=== PATIENT | female | born 2000 | race Caucasian/White ===

== ENCOUNTER 2023-04-25 10:45 | Emergency (ER) | payer OTHER, SELFPAY ==
[2023-04-25 10:49] VITALS: BP 138/108; PULSE 139; RESP 22; TEMP 36.9; O2SAT 96; BMI 34.8
[2023-04-25 10:54] VITALS: O2SAT 96
--- NOTE | 2023-04-25 11:03 | ED_ITS ---
HPI - General Adult General Chief complaint: Upper Respiratory Infection Stated complaint: FLU SYMPTOMS Time Seen by Provider: 04/25/23 10:54 Mode of arrival: walk-in Limitations: no limitations History of Present Illness HPI narrative: 22-year-old female presents for a four day history of nausea and vomiting. She states she had a fever of a hundred and two degrees at home. No ddiarrhea. She had a slight cough today. She thinks she has a stomach virus. Related Data Previous Rx's Medication Instructions Recorded benzonatate 100 mg capsule 100 mg PO TID PRN cough #20 caps 04/25/23 ondansetron 4 mg disintegrating 4 mg PO Q6H PRN nausea and 04/25/23 tablet vomiting #20 tabs Allergies Allergy/AdvReac Type Severity Reaction Status Date / Time NSAIDS (Non-Steroidal Allergy Unknown Verified 04/25/23 10:49 Anti-Inflamma Review of Systems ROS Narrative A ten point review of systems is negative except as noted above. Exam Narrative Exam Narrative: Nurses note and vital signs reviewed and patient is not hypoxic. General: The patient appears well and in no apparent distress. Patient is resting comfortably on cart. Skin: Warm, dry, no pallor noted. There is no rash noted. Head: Normocephalic, atraumatic Eye: Normal conjunctiva, no drainage Ears, Nose, Mouth, and Throat: oral mucosa is moist. Nares patent. Cardiovascular: Regular Rate and Rhythm Respiratory: Patient is in no distress, no accessory muscle use, lungs are clear to auscultation, no wheezing, rales or rhonchi Back: non-tender GI: no tenderness to palpation, no masses appreciated. No rebound, guarding, or rigidity noted. Musculoskeletal: The patient has no evidence of calf tenderness, no pitting edema, symmetrical pulses noted bilaterally Neurological: A&O, normal speech Psychiatric: Cooperative Constitutional Vital Signs, click to edit/add: Last Vital Signs Temp 98.5 F 04/25/23 10:49 Pulse 106 H 04/25/23 11:42 Resp 20 04/25/23 11:42 BP 143/88 H 04/25/23 11:42 Pulse Ox 98 04/25/23 11:42 O2 Del Method Room Air 04/25/23 10:54 Course Vital Signs Vital signs: Vital Signs Temperature 98.5 F 04/25/23 10:49 Pulse Rate 139 H 12/08/23 10:49 Respiratory Rate 22 04/25/23 10:49 Blood Pressure 138/108 H 04/25/23 10:49 Pulse Oximetry 96 04/25/23 10:49 Oxygen Delivery Method Room Air 04/25/23 10:49 Temperature 98.5 F 04/25/23 10:49 Pulse Rate 106 H 04/25/23 11:42 Respiratory Rate 20 04/25/23 11:42 Blood Pressure 143/88 H 04/25/23 11:42 Pulse Oximetry 98 04/25/23 11:42 Oxygen Delivery Method Room Air 04/25/23 10:54 Medical Decision Making MDM Narrative Medical decision making narrative: Her workup is negative. Repeat abdominal exam shows no tenderness. She complained of some pain in her throat and exam shows no erythema or exudates. Lungs are clear to auscultation and she is able to be discharged. I do not clinically suspect Covid at this point. Treatment diagnosis and follow-up were discussed with the patient. Differential Diagnosis Differential Diagnosis: gastroenteritis, viral illness Lab Data Lab results reviewed: Yes I reviewed the patient's lab results Labs: Lab Results 04/25/23 Range/Units 11:13 WBC 16.6 H (4.0-11.0) 10^3/uL RBC 5.07 (4.20-5.40) 10^6/uL Hgb 14.4 (12.0-16.0) g/dL Hct 45.8 (36.0-48.0) % MCV 90.3 (81.0-99.0) fL MCH 28.4 (26.7-34.0) pg MCHC 31.4 (29.9-35.2) g/dL RDW 13.2 (11.0-15.0) % Plt Count 299 (150-450) 10^3/uL MPV 9.7 (9.5-13.5) fL Neut % (Auto) 83.1 H (43.0-75.0) % Lymph % (Auto) 7.3 L (20.5-60.0) % [place] % (Auto) 8.7 (1.7-12.0) % Eos % (Auto) 0.3 L (0.9-7.0) % Baso % (Auto) 0.3 (0.2-2.0) % Neut # (Auto) 13.8 H (1.4-6.5) 10^3/uL Lymph # (Auto) 1.2 (1.2-3.8) 10^3/uL [place] # (Auto) 1.4 H (0.3-0.8) 10^3/uL Eos # (Auto) 0.1 (0.0-0.7) 10^3/uL Baso # (Auto) 0.1 (0.0-0.1) 10^3/uL Abs Immat Gran (auto) 0.05 H (0.00-0.03) 10^3/uL Imm/Tot Granulo (auto) 0.3 (0.0-0.5) % Sodium 136 (136-145) mmol/L Potassium 3.8 (3.5-5.1) mmol/L Chloride 100 (98-107) mmol/L Carbon Dioxide 22.3 (21.0-32.0) mmol/L Anion Gap 17.5 BUN 9.0 (7.0-18.0) mg/dL Creatinine 0.75 (0.55-1.02) mg/dL Est GFR ( Amer) >60 (>=60) Est GFR (Non-Af Amer) >60 (>=60) BUN/Creatinine Ratio 12.0 Glucose 104 (74-106) mg/dL Calcium 9.1 (8.5-10.1) mg/dL Serum HCG, Qual Negative (NEGATIVE) Discharge Plan Discharge Chief Complaint: Upper Respiratory Infection Clinical Impression: Viral syndrome Patient Disposition: Home, Self-Care Time of Disposition Decision: 13:20 Condition: Good Mode of Transportation: Private Vehicle Prescriptions / Home Meds: New benzonatate 100 mg capsule 100 mg PO TID PRN (Reason: cough) Qty: 20 0RF ondansetron 4 mg tablet,disintegrating 4 mg PO Q6H PRN (Reason: nausea and vomiting) Qty: 20 0RF Instructions: Viral Syndrome (ED) Stand Alone Forms: Portal Instructions Referrals: ZAN MCCLENDON [Primary Care Provider] - 1 week
[2023-04-25 11:21] LABS: Basophils Absolute Auto 0.1 10^3/uL (0.0-0.1); Basophils Percent Auto 0.3 % (0.2-2.0); Eosinophils Absolute Auto 0.1 10^3/uL (0.0-0.7); Eosinophils Percent Auto 0.3 % (0.9-7.0); Hematocrit 45.8 % (36.0-48.0); Hemoglobin 14.4 g/dL (12.0-16.0); Immature Granulocytes Abs Auto 0.05 10^3/uL (0.00-0.03); Immature Granulocytes Pct Auto 0.3 % (0.0-0.5); Lymphocytes Absolute Auto 1.2 10^3/uL (1.2-3.8); Lymphocytes Percent Auto 7.3 % (20.5-60.0); Mean Corpuscular HGB Conc 31.4 g/dL (29.9-35.2); Mean Corpuscular Hemoglobin 28.4 pg (26.7-34.0); Mean Corpuscular Volume 90.3 fL (81.0-99.0); Mean Platelet Volume 9.7 fL (9.5-13.5); Monocytes Absolute Auto 1.4 10^3/uL (0.3-0.8); Monocytes Percent Auto 8.7 % (1.7-12.0); Neutrophils Absolute Auto 13.8 10^3/uL (1.4-6.5); Neutrophils Percent Auto 83.1 % (43.0-75.0); Platelet Count 299 10^3/uL (150-450); Red Blood Count 5.07 10^6/uL (4.20-5.40); Red Cell Distribution Width 13.2 % (11.0-15.0); White Blood Count 16.6 10^3/uL (4.0-11.0)
[2023-04-25 11:26] LABS: Anion Gap 17.5; Calcium 9.1 mg/dL (8.5-10.1); Carbon Dioxide 22.3 mmol/L (21.0-32.0); Chloride 100 mmol/L (98-107); Estimated GFR (African America >60 (>=60); Estimated GFR (Non-African Ame >60 (>=60); Glucose 104 mg/dL (74-106); Potassium 3.8 mmol/L (3.5-5.1); Sodium 136 mmol/L (136-145)
[2023-04-25 11:28] LABS: HCG Qualitative NEGATIVE (NEGATIVE)
[2023-04-25] MEDS: 0.9 % SODIUM CHLORIDE 1,000 ML 1000 ML IV (11:33)
[2023-04-25] MEDS: ONDANSETRON PF 4 MG/2 ML VIAL IV (11:33)
[2023-04-25 11:42] VITALS: BP 143/88; PULSE 106; RESP 20; O2SAT 98
== END 2023-04-25 13:35 | disposition home or self-care (01) ==
PROVIDERS: Emergency Provider Emergency Medicine; PCP Family Medicine
DX: B34.9 Viral infection, unspecified (principal)
CPT/HCPCS: 36415; 80048; 84703; 85025; 96374; 99284

== ENCOUNTER 2023-07-29 20:53 | Outpatient (REF) | payer OTHER, SELFPAY ==
--- OUTSIDE RECORDS SUMMARY | 2023-07-29 21:02 | XMS_ITS | CCD ---
Author Name Unknown Address [address] [facility] [address] [place] [address] Organization [facility] Care Team Providers Care Assistant Reading Teacher Name Role Phone FILIBERTO GREENE Referring Unavailable FLARISARA, FILIBERTO OLMOS Admitting Unavailable NO, PHYSICIAN Primary Care Unavailable KILLIAN CURIEL Attending Unavailable SHARMAINE TAPIA Consulting Unavailable KILLIAN CURIEL Admitting Unavailable KILLIAN CURIEL Consulting Unavailable KILLIAN CURIEL Attending Unavailable KILLIAN CURIEL Admitting Unavailable HAKAN, DR ZULUAGA Admitting Unavailable HAKAN, DR ZULUAGA Attending Unavailable HAKAN, DR ZULUAGA Primary Care Unavailable HAKAN, DR ZULUAGA Consulting Unavailable ZIEBER, DR YOUSIF Horvath Consulting Unavailable JANI SÁNCHEZ Admitting Unavailable JANI SÁNCHEZ Attending Unavailable JANI SÁNCHEZ Consulting Unavailable No, Physician Primary Care Provider Unavailabl e NO, PHYSICIAN Primary Care Unavailable CLAUDIO PRICE Attending Unavailabl e NO, PHYSICIAN Primary Care Unavailable HELDER ALEXANDER Attending Unava ilable COLETTE DE LA PAZ Attending Unavail able NO, PHYSICIAN Primary Care Unavailable NO, PHYSICIAN Primary Care Unavailable SARA MARQUES Attending Unavailab le NO, PHYSICIAN Primary Care Unavailable CLAUDIO PRICE Attending Unavailabl e No, Physician Primary Care Provider Unavailabl Claudio Darby PA-C Unavailable [phone] HELDER ALEXANDER Referring Unava ilable NO, PHYSICIAN Primary Care Unavailable HELDER ALEXANDER Attending Unava ilable NO, PHYSICIAN Primary Care Unavailable CHRISTEN PIERCE Referring Unavailabl e NO, PHYSICIAN Primary Care Unavailable ROGERIO ALEXANDRE Attending Unavail able SIDRA JOSEPH Attending Unavailable NO, PHYSICIAN Primary Care Unavailable SIDRA JOSEPH Attending Unavailable NO, PHYSICIAN Primary Care Unavailable NO, PHYSICIAN Primary Care Unavailable JOSEPH, SIDRA Attending Unavailable Kamala Parker Unavailable AntMoni Unavailable GWENDOLYN UL Attending Unavailable Allergies Allergy Classification Reported Allergen(s) Allergy Type Date of Onset Reaction(s) Facility (6 sources) Non-steroidal anti-inflammatory agent; Translations: [NSAIDS (NON-STEROIDAL ANTI-INFLAMMATORY DRUG)] Propensity to adverse reactions to drug 02-10-2021 Anaphylaxis [facility] (9 sources) Non-steroidal anti-inflammatory agent Propensity to adverse reactions to drug 02-10-2021 Anaphylaxis [facility] Medications Current Medications Medication Drug Class(es) Dates Sig (Normalized) Sig (Original) [id number] 200 actuat albuterol 0.09 mg/actuat metered dose inhaler (4 sources) beta2-Adrenergic Agonist Start: 11-12-2021 End: 05-01-2022 take 2 puff(s) by inhalation every six hours as needed for cough albuterol 90 mcg/actuation inhaler Indications: Cough , Exertional dyspnea Inhale 2 (two) puffs every 6 (six) hours as needed for cough or shortness of breath . 20.1 g 11 11/12/2021 05/01/2022 Discontinued Start: 03-07-2016 take 2 puff(s) by in halation every four hours as needed Albuterol Sulfate HFA 108 (90 Base) MCG/ACT 2 puffs as needed Inhalation every 4 hrs Dec, Active ARIPiprazole 2 mg oral table t (6 sources) Atypical Antipsychotic ARIPipraz ole 2 MG Oral for 90 Days Active End: 05-01-2022 apply 1 tablet topically once daily ARIPiprazole (ABILIFY) 10 MG disintegrating tablet Dissolve 10 mg on top of tongue daily . 0 05/01/2022 Discontinued benzonatate 200 mg oral capsule (3 sources) Non-narcotic Antitussive Start: 01-01-2023 take 1 capsule by mouth every eight hours Benzonatate 200 MG 1 capsule Orally Three times a day for 10 Dec, Active Start: 03-07-2016 take 1 capsule by mo [facility] three times daily as needed Tessalon Perles 100 MG 1 capsule as needed Orally Three times a day Feb, Not-Taking fluticasone propionate 0.05 mg/actuat metered dose nasal spray (1 source) Corticosteroid Start: 01-01-2023 take 1 spray(s) nasal route once daily Flonase Allergy Relief 50 MCG/ACT 1 spray in each nostril Nasally Once a day for 30 day(s) Dec, Active metFORMIN hydrochloride 500 mg oral tablet (2 sources) Biguanide metFORMIN HCl 50 0 MG Oral for 90 Days Active methylPREDNISolone 4 mg oral tablet (3 sources) Corticosteroid Start: 04-18-2016 methylPREDNISolone 4 MG as directed Orally Dec, Active propranolol hydrochloride 10 mg oral tablet (10 sources) beta-Adrenergic Nenita take 1 tablet by mouth twice daily propranoloL (INDERAL) 10 MG tablet Take 1 (one) tablet (10 mg total) by mouth 2 (two) times a day . 0 Active Completed/Discontinued Medications Medication Drug Class(es) Dates Sig (Normalized) Sig (Original) amoxicillin 875 mg oral tablet (2 sources) Penicillin-class Antibacterial Start: 03-07-2016 take 1 tablet by mouth every twelve hours Amoxicillin 875 MG 1 tablet Orally every 12 hrs for 10 day(s) Feb, Not-Taking cefTRIAXone (2 sources) Cephalosporin Antibacterial Start: 05-11-2014 Rocephin 500 mg Apr, 1 grm cetirizine hydrochloride 10 mg oral tablet (2 sources) Histamine-1 Receptor Antagonist Start: 07-05-2021 End: 07-05-2022 take 1 tablet by mouth once daily cetirizine (ZYRTEC) 10 MG tablet Indications: Fungal infection Take 1 (one) tablet (10 mg total) by mouth daily . 30 tablet 11 07/05/2021 05/01/2022 Discontinued diphenhydrAMINE hydrochloride 25 mg oral capsule (3 sources) Histamine-1 Receptor Antagonist Start: 06-26-2021 End: 06-26-2022 take 1 capsule by mouth every four hours as needed diphenhydrAMINE (BENADRYL) 25 mg capsule Indications: Pityriasis rosea Take 1 (one) capsule (25 mg total) by mouth every 4 (four) hours as needed for itching . 24 capsule 2 06/26/2021 05/01/2022 Discontinued doxycycline monohydrate 100 mg oral capsule (2 sources) Tetracycline-class Drug Start: 04-18-2016 take 1 capsule by mouth every twelve hours Doxycycline Monohydrate 100 MG 1 capsule Orally every 12 hrs for 14 days Apr, Not-Taking ketoconazole 20 mg/ml topical cream (2 sources) Azole Antifungal Start: 07-05-2021 End: 05-01-2022 ketoconazole (NIZORAL) 2 % cream Indications: Fungal infection Apply to affected area daily for 2 weeks . 30 g 0 07/05/2021 05/01/2022 Discontinued levonorgestrel 0.616628 mg/hr intrauterine system (11 sources) Progestin, Progestin-containi ng Intrauterine Device Start: 05-22-2022 End: 05-22-2022 levonorgestreL (MIRENA) 20 mcg/24 hours (8 yrs) 52 mg IUD 1 each Start: 05-22-2022 End: 05-22-2022 levonorgestreL (MIRENA) 20 m cg/24 hours (8 yrs) 52 mg IUD 1 each Start: 05-22-2022 End: 05-22-2022 levonorgestreL (MIRENA) 20 m cg/24 hours (8 yrs) 52 mg IUD 1 each Start: 05-22-2022 End: 05-22-2022 levonorgestreL (MIRENA) 20 m cg/24 hours (8 yrs) 52 mg IUD 1 each Start: 05-22-2022 End: 05-22-2022 levonorgestreL (MIRENA) 20 m cg/24 hours (8 yrs) 52 mg IUD 1 each Start: 05-22-2022 End: 05-22-2022 levonorgestreL (MIRENA) 20 m cg/24 hours (8 yrs) 52 mg IUD 1 each Start: 05-22-2022 End: 05-22-2022 levonorgestreL (MIRENA) 20 m cg/24 hours (8 yrs) 52 mg IUD 1 each Start: 05-22-2022 End: 05-22-2022 levonorgestreL (MIRENA) 20 m cg/24 hours (8 yrs) 52 mg IUD 1 each Start: 05-22-2022 End: 05-22-2022 levonorgestreL (MIRENA) 20 m cg/24 hours (8 yrs) 52 mg IUD 1 each Start: 05-22-2022 End: 05-22-2022 levonorgestreL (MIRENA) 20 m cg/24 hours (8 yrs) 52 mg IUD 1 each Start: 05-22-2022 End: 05-23-2022 levonorgestreL (MIRENA) 20 m cg/24 hours (8 yrs) 52 mg IUD 1 each Loratadine / Pseudoephedrine (2 sources) alpha-Adrenergic Agonist Start: 04-18-2016 take 5-120 mg by mouth every twelve hours as needed Loratadine-Pseudoephedrine ER 5-120 MG 1 tablet as needed Orally every 12 hrs for 14 days Apr, Not-Taking ondansetron 4 mg disintegrating oral tablet (1 source) Serotonin-3 Receptor Antagonist Start: 11-12-2021 End: 05-01-2022 apply 1 tablet topically every eight hours as needed for nausea ondansetron (ZOFRAN-ODT) 4 MG disintegrating tablet Indications: Nausea and vomiting, unspecified vomiting type Dissolve 1 (one) tablet (4 mg total) on top of tongue every 8 (eight) hours as needed for nausea . 9 tablet 0 11/12/2021 05/01/2022 Discontinued phentermine hydrochloride 37.5 mg oral tablet (4 sources) Sympathomimetic Amine Anorectic End: 05-01-2022 take 1 tablet by mouth once daily in the morning phentermine (ADIPEX-P) 37.5 mg tablet Take 37.5 mg by mouth every morning . 0 05/01/2022 Discontinued predniSONE 20 mg oral tablet (2 sources) Start: 03-07-2016 predniSONE 20 MG 2 tablets twice daily for 2 days then 1 tablet twice daily for 2 days then 1 tablet daily for 3 days Orally take with food for 7 days Feb, Not-Taking sertraline 50 mg oral tablet (7 sources) Serotonin Reuptake Inhibitor Start: 04-25-2017 End: 05-01-2022 take 1 tablet by mouth once daily sertraline (ZOLOFT) 50 MG tablet Take 50 mg by mouth daily . 0 04/25/2017 05/01/2022 Discontinued take 1 tablet by salome th every twenty-four hours Zoloft 25 MG 1 tablet Orally Once a day Not-Taking Problems Active Problems Problem Classification Problem Date Documented Date Episodic/Chronic Abdominal pain (6 sources) Right upper quadrant pain; Translations: [Pain in female pelvis] Onset: 12-14-2020 Episodic Acute bronchitis (1 source) Acute bronchitis, unspecified Episodic Contraceptive and procreative management (10 sources) Patient encounter status; Translations: [Encounter for insertion of intrauterine contraceptive device] Onset: 05-22-2022 Episodic Genitourinary symptoms and ill-defined conditions (2 sources) Unspecified abnormal findings in urine; Translations: [Unspecified abnormal findings in urine] Onset: 04-03-2022 Episodic Immunizations and screening for infectious disease (9 sources) Vaccination needed; Translations: [Encounter for immunization] Onset: 05-22-2022 Episodic Mycoses (1 source) Mycosis; Translations: [Unspecified mycosis] Episodic Nausea and vomiting (4 sources) Nausea; Translations: [NAUSEA] Onset: 12-05-2020 Episodic Other connective tissue disease (1 source) Achilles tendinitis; Translations: [Achilles tendinitis, unspecified leg] Episodic Other endocrine disorders (1 source) Polycystic ovary syndrome; Translations: [Polycystic ovarian syndrome] Chronic Other endocrine disorders (2 sources) Polycystic ovarian syndrome; Translations: [Polycystic ovarian syndrome] Onset: 05-01-2022 Chronic Other female genital disorders (1 source) Abnormal uterine bleeding; Translations: [Abnormal uterine and vaginal bleeding, unspecified] Chronic Other female genital disorders (4 sources) Abnormal uterine and vaginal bleeding, unspecified; Translations: [Abnormal uterine and vaginal bleeding, unspecified] Onset: 04-03-2022 Chronic Other female genital disorders (2 sources) Personal history of other diseases of the female genital tract; Translations: [Personal history of other diseases of the female genital tract] Onset: 04-03-2022 Episodic Other inflammatory condition of skin (1 source) Pityriasis rosea; Translations: [Pityriasis rosea] Chronic Other screening for suspected conditions (not mental disorders or infectious disease) (12 sources) Encounter for screening for malignant neoplasm of cervix; Translations: [ test negative] Onset: 12-19-2020 Episodic Other skin disorders (1 source) Eruption; Translations: [Rash and other nonspecific skin eruption] Episodic Other upper respiratory infections (2 sources) Acute pharyngitis, unspecified; Translations: [Acute upper respiratory infection, unspecified] Episodic Screening and history of mental health and substance abuse codes (2 sources) Personal history of other mental and behavioral disorders; Translations: [Personal history of other mental and behavioral disorders] Onset: 04-03-2022 Episodic Unclassified (1 source) Thrombocytosis, unspecified; Translations: [Thrombocytosis, unspecified] Onset: 04-03-2022 Unclassified (1 source) Cough, unspecified; Translations: [Cough, unspecified] Onset: 11-12-2021 Past or Other Problems Problem Classification Problem Date Documented Da te Episodic/Chronic Unclassified (1 source) Thrombocytosis, unspecified; Translations: [Thrombocytosis, unspecified] Onset: 04-03-2022 Unclassified (1 source) Cough, unspecified; Translations: [Cough, unspecified] Onset: 11-12-2021 Unclassified (1 source) Contact with and (suspected) exposure to covid-19 Z20.822 Results Test Name Value Interpretation Reference Range Facility COVID/FLU RT-PCRon SARS-CoV-2 (COVID-19) RNA MODESTA+probe Ql (Unsp spec) Negative [facility] Other COVID/FLU RT-PCR Negative [facility] [employer] Other COVID Quick Testingon 2022 Result Negative [facility] Other Quick Strepon 10-31-2022 S. pyogenes Org specific cx Ql (Throat) Negative [facility] Other Quick Strep [facility] Other Chlamydia/Gonorrhoeae Amplif ied RNAOrdered By: Tiffany Abbasi on 05-23-2022 C. trachomatis rRNA MODESTA+probe Ql (Vag fld) Negative Negative [facility] N. gonorrhoeae rRNA MODESTA+probe Ql (Vag fld) Negative Negative [facility] No Panel InformationOrdered By: Tiffany Abbasi on 05-23-2022 Interpretation and review of laboratory results Normal [facility] Trichomonas vaginalis Amplif ied RNAon 05-23-2022 T. vaginalis rRNA MODESTA+probe Ql (Vag fld) Negative Negative [facility] HCG ( test) Ql (U)O rdered By: Erin Cottrell on 05-22-2022 Internal Control Pass [facility] Interpretation and review of laboratory results Normal [facility] Laboratory - Chemistry and C hemistry - challengeOrdered By: Erin Cottrell on 05-22-2022 HCG ( test) Ql (U) Negative Negative [facility] PELVIC TRANSABDOMINAL AND TRANSVAGINAL WITH COLOR FLOWon 04-03-2022 US PELVIC TRANSABDOMINAL AND TRANSVAGINAL WITH COLOR FLOW EXAMINATION: US PELVIC TRANSABDOMINAL AND TRANSVAGINAL WITH COLOR FLOW HISTORY: ORDERING SYSTEM PROVIDED HISTORY: Abnormal heavy vaginal bleeding, TECHNOLOGIST PROVIDED HISTORY: Illness/Other Reason for exam: Abnormal heavy vaginal bleeding Cancer History: no Surgery, RadiationHistory: no Encounter Type: Initial Additional signs and symptoms: u ORDERING SYSTEM PROVIDED DIAGNOSIS CODES: COMPARISON: None. TECHNIQUE: Transabdominal and endovaginal ultrasound of the pelvis with grayscale and Doppler interrogation. FINDINGS: The uterus is retroflexed, measuring 7.34 cm in length by 3.69 cm AP by 3.90 cm transverse. The endometrial stripe thickness measured 8.82 mm. Both ovaries are normal in size and echogenicity with each containing small follicular cysts. The right ovary measured 3.90 x 2.58 x 1.33 cm and has normal intrinsic arterial and venous waveforms for which the arterial resistive index is 0.62. The left ovary measured 1.69 x 2.07 x 1.96 cm and also has normal intrinsic arterial and venous waveforms for which the arterial resistive index is 0.59. No free fluid is seen within the pelvis. IMPRESSION: Normal study. No acute findings. DPR/cdr Workstation ID: [id number] Dictated by: KILLIAN MENA on FriApr 03, 2022 2:29:20 PM EST Transcribed by: HALIMA SANDOVAL on FriApr 03, 2022 2:45:11 PM EST Finalized by: KILLIAN MENA on FriApr 03, 2022 2:48:51 PM EST Normal [facility] Comment on above: Order Comment: Injur y/Trauma or Illness?:Illness/Other How long have you had these symptoms (acute/chronic)?:Unknown Reason for exam?:Abnormal heavy vaginal bleeding History of cancer?:no Surgeries, chemotherapy, or radiation?:no Type of Exam?:Initial Additional signs and symptoms?:u XR CHEST AP/PA AND LATon XR CHEST AP/PA AND LAT EXAMINATION: PA AND LATERAL CHEST, 11/12/2021 10:56 am. HISTORY: ORDERING SYSTEM PROVIDED HISTORY: Patient diagnosed with COVID a week ago. Exertional shortness of breath, productive cough, wheezing., TECHNOLOGIST PROVIDED HISTORY: Illness/Other Reason for exam: cough sob Cancer History: no Surgery, RadiationHistory: no Encounter Type: Initial Additional signs and symptoms: tested + for covid last week ORDERING SYSTEM PROVIDED DIAGNOSIS CODES: R05.9 Cough COMPARISON: None FINDINGS: The heart is normal in size. The pulmonary vascularity is normal. No infiltrate, effusion, or pneumothorax is present. IMPRESSION: No acute pulmonary disease. Workstation ID: [id number] Dictated by: YOUSIF OROZCO on FriNov 12, 2021 11:20:08 AM EDT Transcribed by: YOUSIF OROZCO on FriNov 12, 2021 11:20:08 AM EDT Finalized by: YOUSIF OROZCO on FriNov 12, 2021 11:20:08 AM EDT Normal [facility] Comment on above: Order Comment: Injur y/Trauma or Illness?:Illness/Other How long have you had these symptoms (acute/chronic)?:Acute Reason for exam?:cough sob History of cancer?:no Surgeries, chemotherapy, or radiation?:no Type of Exam?:Initial Additional signs and symptoms?:tested + for covid last week COVID-19, MOLECULARon 2020 INTERNAL CONTROL (DHALIWAL ID) Pass Normal [facility] SARS-CoV-2 (COVID-19) Ab IA Ql Not detected Normal Not Detected [facility] PAP ACOG PANEL 3: 21 to 29on 12-22-2020 . . Normal [facility] Comment on above: Result Comment: Perf ormed at: WB Performed By: #### [id number] #### [facility] [address] [place], [place] [address] Danae Gwendolyn Age Gdln ACOG Testing - Normal [facility] Comment on above: Performed By: #### [id number] #### [facility] [address] [place], [place] [address] Danae Gwendolyn Chlamydia, Nuc. Acid Amp Negative Normal Negative [facility] Comment on above: Result Comment: Perf ormed at: =G Performed By: #### [id number] #### [facility] [address] [place] [address] Danae Gwendolyn DIAGNOSIS: Comment Normal [facility] Comment on above: Result Comment: NEGA TIVE FOR INTRAEPITHELIAL LESION OR MALIGNANCY. CELLULAR CHANGES ASSOCIATED WITH INFLAMMATION ARE PRESENT. THIS SPECIMEN WAS RESCREENED PART OF OUR DIRECTOR PRESALES PROGRAM. Performed at: WB Performed By: #### [id number] #### [facility] [address] [place] [address] Danae Junioren Gonococcus, Nuc. Acid Amp Negative Normal Negative [facility] Comment on above: Result Comment: Perf ormed at: =G Performed By: #### [id number] #### [facility] [address] [place] [address] Danae Junioren Methodology: Comment Normal [facility] Comment on above: Result Comment: This liquid based ThinPrep(R) pap test was screened with the use of an image guided system. Performed at: WB Performed By: #### [id number] #### [facility] [address] [place] [address] Danae Gwendolyn Note: Comment Normal [facility] Comment on above: Result Comment: The Pap smear is a screening test designed to aid in the detection of premalignant and malignant conditions of the uterine cervix. It is not a diagnostic procedure and should not be used as the sole means of detecting cervical cancer. Both false-positive and false-negative reports do occur. . Performed at: WB Performed By: #### [id number] #### [facility] [address] [place] [address] Danae Snow Performed by: Comment Normal [facility] Comment on above: Result Comment: Santos Vuong, Hand Stemmer (ASCP) Performed at: WB Performed By: #### [id number] #### [facility] [address] [place] [address] Danae Snow QC reviewed by: Comment Normal [facility] Comment on above: Result Comment: Elijah Ann, Supervisory Hand Stemmer (ASCP) Performed at: WB Performed By: #### [id number] #### [facility] [address] [place] [address] Danae Snow Reflex Criteria: Comment Normal [facility] Comment on above: Result Comment: The HPV DNA reflex criteria were not met with this specimen result therefore, no HPV testing was performed. . Performed at: WB Performed By: #### [id number] #### [facility] [address] [place] [address] Danae Snow Specimen adequacy: Comment Normal [facility] Comment on above: Result Comment: Sati sfactory for evaluation. Endocervical and/or squamous metaplastic cells (endocervical component) are present. Performed at: WB Performed By: #### [id number] #### [facility] [address] [place] [address] Danae Snow US SINGLE QUAD RT UPPERon US SINGLE QUAD RT UPPER EXAMINATION: US SINGLE QUAD RT UPPER HISTORY: Nausea , right upper quadrant tenderness COMPARISON: No relevant comparison available. TECHNIQUE: Transabdominal evaluation of the right upper quadrant. FINDINGS: LIVER: Normal size and echotexture. Color Doppler demonstrates patent hepatic veins. PORTAL VEIN: Duplex Doppler demonstrates normal hepatopetal flow pattern with flow velocity averaging 31 cm/s. GALLBLADDER: No visible gallstones, wall thickening, or pericholecystic free fluid. Negative sonographic Soraes's sign. BILIARY: No abnormal dilation or stones. Common bile duct diameter is within normal limits. PANCREASE: Not well seen due to overlying bowel gas. KIDNEY: No hydronephrosis. No visible mass or stones. Size: 9.2 x 4.9 x 4.2 cm IMPRESSION: 1. No abnormal or suspicious findings to account for the patient's symptoms. 2. Very limited evaluation of the pancreas due to overlying bowel gas. Electronically authenticated by: YOUSIF ARIAS Date: 2020-12-05 13:58 Normal [facility] CBCon 11-01-2020 Basophils (Bld) [#/Vol] 0.04 10*3/uL Normal <=0.2 [facility] Comment on above: Performed By: #### D DIMR, TNIH, CBC, COMPH #### [facility] [address] [place] [address] Basophils/100 WBC (Bld) 0.4 % Normal [facility] Comment on above: Performed By: #### D DIMR, TNIH, CBC, COMPH #### [facility] [address] [place] [address] Eosinophils (Bld) [#/Vol] 0.24 10*3/uL Normal <=0.60 [facility] Comment on above: Performed By: #### D DIMR, TNIH, CBC, COMPH #### [facility] [address] [place] [address] Eosinophils/100 WBC (Bld) 2.5 % Normal [facility] Comment on above: Performed By: #### D DIMR, TNIH, CBC, COMPH #### [facility] [address] [place] [address] Hematocrit (Bld) [Volume fraction] 40.3 % Normal 35.0-45.0 [facility] Comment on above: Performed By: #### D DIMR, TNIH, CBC, COMPH #### [facility] [address] [place] [address] Hemoglobin (Bld) [Mass/Vol] 13.1 g/dL Normal 11.8-15.5 [facility] Comment on above: Performed By: #### D DIMR, TNIH, CBC, COMPH #### [facility] [address] [place] [address] Immature granulocytes (Bld) [#/Vol] 0.02 10*3/uL Normal 0.00-0.10 [facility] Comment on above: Performed By: #### D DIMR, TNIH, CBC, COMPH #### [facility] [address] [place] [address] Immature granulocytes/100 WBC (Bld) 0.2 % Normal [facility] Comment on above: Performed By: #### D DIMR, TNIH, CBC, COMPH #### [facility] [address] [place] [address] Lymphocytes (Bld) [#/Vol] 2.71 10*3/uL Normal 1.00-4.50 [facility] Comment on above: Performed By: #### D DIMR, TNIH, CBC, COMPH #### [facility] [address] [place] [address] Lymphocytes/100 WBC (Bld) 28.1 % Normal [facility] Comment on above: Performed By: #### D DIMR, TNIH, CBC, COMPH #### [facility] [address] [place] [address] MCH (RBC) [Entitic mass] 27.9 pg Normal 27.0-34.0 [facility] Comment on above: Performed By: #### Torers DIMR, TNIH, CBC, COMPH #### [facility] [address] [place] [address] MCHC (RBC) [Mass/Vol] 32.5 g/dL Normal 31.0-36.0 [facility] Comment on above: Performed By: #### D DIMR, TNIH, CBC, COMPH #### [facility] [address] [place] [address] MCV (RBC) [Entitic vol] 85.9 fL Normal 81.0-100.0 [facility] Comment on above: Performed By: #### Torres DIMR, TNIH, CBC, COMPH #### [facility] [address] [place] [address] Monocytes (Bld) [#/Vol] 0.66 10*3/uL Normal 0.10-0.80 [facility] Comment on above: Performed By: #### D DIMR, TNIH, CBC, COMPH #### [facility] [address] [place] [address] MONOS 6.8 % Normal [facility] Comment on above: Performed By: #### D DIMR, TNIH, CBC, COMPH #### [facility] [address] [place] [address] Neutrophils (Bld) [#/Vol] 5.97 10*3/uL Normal 1.50-7.50 [facility] Comment on above: Performed By: #### D DIMR, TNIH, CBC, COMPH #### [facility] [address] [place] [address] Platelet mean volume (Bld) [Entitic vol] 9.8 fL Normal 8.5-13.0 [facility] Comment on above: Performed By: #### D DIMR, TNIH, CBC, COMPH #### [facility] [address] [place] [address]116 Platelets (Bld) [#/Vol] 362 10*3/uL Normal 150-400 [facility] Comment on above: Performed By: #### D DIMR, TNIH, CBC, COMPH #### [facility] [address] [place] [address] RBC (Bld) [#/Vol] 4.69 10*6/uL Normal 3.80-5.[address] [facility] Comment on above: Performed By: #### D DIMR, TNIH, CBC, COMPH #### [facility] [address] [place] [address] RDW (STD DEVIATION) 43.9 fL Normal 38.0-48.[address] [facility] Comment on above: Performed By: #### D DIMR, TNIH, CBC, COMPH #### [facility] [address] [place] [address] 30283 SEGS 62.0 % Normal [facility] Comment on above: Performed By: #### D DIMR, TNIH, CBC, COMPH #### [facility] [address] [place] [address] WBC (Bld) [#/Vol] 9.64 10*3/uL Normal 4.50-11.[address] [facility] Comment on above: Performed By: #### D DIMR, TNIH, CBC, COMPH #### [facility] [address] [place] [address] COMPREHENSIVE METABOLIC PANE Felipe 11-01-2020 Albumin [Mass/Vol] 3.5 g/dL Normal 3.5-5.0 [facility] Comment on above: Performed By: #### D DIMR, TNIH, CBC, COMPH #### [facility] [address] [place] [address]67 ALP [Catalytic activity/Vol] 76 U/L Normal 34-115 [facility] Comment on above: Performed By: #### D DIMR, TNIH, CBC, COMPH #### [facility] [address] [place] [address]14 ALT [Catalytic activity/Vol] 25 U/L Normal 11-66 [facility] Comment on above: Performed By: #### D DIMR, TNIH, CBC, COMPH #### [facility] [address] [place] [address]14[address] AST [Catalytic activity/Vol] 29 U/L Normal 5-40 [facility] Comment on above: Performed By: #### Torres DIMR, TNIH, CBC, COMPH #### [facility] [address] [place] [address] Bilirubin [Mass/Vol] 0.4 mg/dL Normal 0.2-1.3 [facility] Comment on above: Result Comment: Prom acta (Eltrombopag) use may falsely elevate total bilirubin results. Performed By: #### D DIMR, TNIH, CBC, COMPH #### [facility] [address] [place] [address]53 Calcium [Mass/Vol] 9.1 mg/dL Normal 8.3-10.0 [facility] Comment on above: Performed By: #### D DIMR, TNIH, CBC, COMPH #### [facility] [address] [place] [address] Chloride [Moles/Vol] 102 mmol/L Normal 99-109 [facility] Comment on above: Performed By: #### D DIMR, TNIH, CBC, COMPH #### [facility] [address] [place] [address] CO2 [Moles/Vol] 23 mmol/L Normal 22-32 [facility] Comment on above: Performed By: #### D DIMR, TNIH, CBC, COMPH #### [facility] [address] [place] [address] Creatinine [Mass/Vol] 0.81 mg/dL Normal 0.55-1.02 [facility] Comment on above: Performed By: #### D DIMR, TNIH, CBC, COMPH #### [facility] [address] [place] [address] GFR >60.00 Normal >=60 [facility] Comment on above: Result Comment: Unit s of measure= mL/min/1.73m2 This eGFR is calculated using the MDRD study equation which has not been validated for use with the elderly (>70yrs), women, patients with serious comorbid conditions, or persons with extremes of body size, muscle mass, or nutritional status. Use of this equation with these patient groups may lead to errors in eGFR. Performed By: #### D DIMR, TNIH, CBC, COMPH #### [facility] [address] [place] [address] GFR NON- >60.00 Normal >=60 [facility] Comment on above: Result Comment: Unit s of measure= mL/min/1.73m2 This eGFR is calculated using the MDRD study equation which has not been validated for use with the elderly (>70yrs), women, patients with serious comorbid conditions, or persons with extremes of body size, muscle mass, or nutritional status. Use of this equation with these patient groups may lead to errors in eGFR. Performed By: #### D DIMR, TNIH, CBC, COMPH #### [facility] [address] [place] [address] Glucose [Mass/Vol] 88 mg/dL Normal 65-110 [facility] Comment on above: Performed By: #### D DIMR, TNIH, CBC, COMPH #### [facility] [address] [place] [address] Potassium [Moles/Vol] 4.3 mmol/L Normal 3.6-5.0 [facility] Comment on above: Performed By: #### D DIMR, TNIH, CBC, COMPH #### [facility] [address] [place] [address] Protein [Mass/Vol] 7.3 g/dL Normal 6.3-8.2 [facility] Comment on above: Performed By: #### D DIMR, TNIH, CBC, COMPH #### [facility] [address] [place] [address] Sodium [Moles/Vol] 140 mmol/L Normal 139-147 [facility] Comment on above: Performed By: #### D DIMR, TNIH, CBC, COMPH #### [facility] [address] [place] [address] Urea nitrogen [Mass/Vol] 10 mg/dL Normal 7-25 [facility] Comment on above: Performed By: #### D DIMR, TNIH, CBC, COMPH #### [facility] [address] [place] [address] D-DIMERon 11-01-2020 D-DIMER 214.00 ng/mL FEU Normal <=682 [facility] Comment on above: Result Comment: This assay is approved for use in conjunction with a non high clinical pretest probability (PTP) assessment model to exclude pulmonary embolism (PE) disease and as an aid in the diagnosis of Venous Thromboembolism (VTE) disease (deep vein thrombosis (DVT) or PE). The cutoff to exclude PE is <450ng/mL FEU. Performed By: #### D DIMR, TNIH, CBC, COMPH #### [facility] [address] [place] [address] TROPONIN, HIGH SENSITIVITYon 11-01-2020 TROPONIN, HIGH SENSITIVITY <0.03 Normal 0.00-0.06 [facility] Comment on above: Result Comment: RISK STRATIFICATION: Low risk 0.00-0.06 Intermediate risk 0.07-<0.1 High risk 0.1-0.6 Suggestive of NE >.6 Performed By: #### D DIMR, TNIH, CBC, COMPH #### [facility] [address] [place] [address] Xray, Chest 2 viewson 2020 Xray, Chest 2 views TWO VIEWS OF THE CHEST CLINICAL HISTORY: Chest pain, unspecified COMPARISON: None. FINDINGS: The cardiac silhouette and mediastinal contours are within normal limits. The lungs are clear. There is no pleural effusion or pneumothorax. IMPRESSION: No acute findings. Normal [facility] Comment on above: Order Comment: Chest pain, unspecified COVID-19, MOLECULARon 2020 SARS-COV-2 (DIABlippexRIN) Not Detected Normal Not Detected [facility] Comment on above: Order Comment: : Ayleen l Swab COVID/Flu Lab Tests (OP in UTM/Dry) Result Comment: This test was performed under the FDA's Emergency Use Authorization (EUA). Testing was performed using the Simplexa SARS-CoV-2 RT-PCR assay (Algorithmics) on the [employer] MDX platform. This test has not been approved for use in asymptomatic patients and its performance in this patient population has not been evaluated. Negative results do not rule out the presence of SARS-CoV-2/COVID-19. Fact sheets for this EUA can be found at the following links: For Healthcare Providers: https://www.fda.gov/media/796149/download For Patients: https://www.fda.gov/media/715272/download Performed By: #### L [id number] #### [facility] [address] [place], [place] [address] Zen Kwon M.D. [id number] Vital Signs Date Time Vital Sign Value Performing Clinician Facility 01-01-2023 11:10-0400 Body height 160.02 cm Moni Cain Other [facility] Other 01-01-2023 11:10-0400 Body mass index (BMI) [Ratio] 33.65 kg/m2 Moni Cain Other [facility] Other 01-01-2023 11:10-0400 Body temperature 98.2 [degF] Moni Cain Other [facility] Other 01-01-2023 11:10-0400 Body weight 86.18 kg Moni Cain Other [facility] Other 01-01-2023 11:10-0400 Diastolic blood pressure 68 mm[Hg] Moni Cain Other [facility] Other 01-01-2023 11:10-0400 Respiratory rate 18 /min Moni Cain Other [facility] Other 01-01-2023 11:10-0400 SaO2% (BldA) [Mass fraction] 96 % Moni Cain Other [facility] Other 01-01-2023 11:10-0400 Systolic blood pressure 125 mm[Hg] Moni Cain Other [facility] Other 10-31-2022 18:10-0400 Body height 160.02 cm Kamala Parker Other [facility] Other 10-31-2022 18:10-0400 Body mass index (BMI) [Ratio] 34.5 kg/m2 Kamala Parker Other [facility] Other 10-31-2022 18:10-0400 Body temperature 98.1 [degF] Kamala Eelna Other [facility] Other 10-31-2022 18:10-0400 Body weight 88.36 kg Kamala Parker Other [facility] Other 10-31-2022 18:10-0400 Diastolic blood pressure 57 mm[Hg] Kamala Parker Other [facility] Other 10-31-2022 18:10-0400 Respiratory rate 18 /min Kamala Parker Other [facility] Other 10-31-2022 18:10-0400 SaO2% (BldA) [Mass fraction] 99 % Kamalarhona Parker Other [facility] Other 10-31-2022 18:10-0400 Systolic blood pressure 101 mm[Hg] Kamala Parker Other [facility] Other 05-22-2022 14:42-0500 Body height 157.5 cm Sidra Joseph PA-C Work Phone: [facility] 05-22-2022 14:42-0500 Body mass index (BMI) [Ratio] 36.69 kg/m2 Sidra Joseph PA-C Work Phone: [facility] 05-22-2022 14:42-0500 Body weight 90.99 kg Sidra Joseph PA-C Work Phone: [facility] 05-22-2022 14:42-0500 Diastolic blood pressure 61 mm[Hg] Sidra Joseph PA-C Work Phone: [facility] 05-22-2022 14:42-0500 Heart rate 74 /min Sidra Joseph PA-C Work Phone: [facility] 05-22-2022 14:42-0500 Systolic blood pressure 115 mm[Hg] Sidra Joseph PA-C Work Phone: [facility] 05-01-2022 13:16-0500 Body height 157.5 cm Sidra Joseph PA-C Work Phone: [facility] 05-01-2022 13:16-0500 Body mass index (BMI) [Ratio] 36.03 kg/m2 Sidra Joseph PA-C Work Phone: [facility] 05-01-2022 13:16-0500 Body weight 89.36 kg Sidra Joseph PA-C Work Phone: [facility] 05-01-2022 13:16-0500 Diastolic blood pressure 84 mm[Hg] Sidra Joseph PA-C Work Phone: [facility] 05-01-2022 13:16-0500 Heart rate 73 /min Sidra Joseph PA-C Work Phone: [facility] 05-01-2022 13:16-0500 Systolic blood pressure 114 mm[Hg] Sidra Joseph PA-C Work Phone: [facility] 07-05-2021 14:01-0500 Body height 157.5 cm Claudio Price PA-C Work Phone: [facility] Comment on above: per pt. 07-05-2021 14:01-0500 Body mass index (BMI) [Ratio] 34.75 kg/m2 Claudio Price PA-C Work Phone: [facility] 07-05-2021 14:01-0500 Body temperature 98.49 [degF] Claudio Price PA-C Work Phone: [facility] 07-05-2021 14:01-0500 Body weight 86.18 kg Claudio Price PA-C Work Phone: [facility] Comment on above: per pt. 07-05-2021 14:01-0500 Diastolic blood pressure 72 mm[Hg] Claudio Price PA-C Work Phone: [facility] 07-05-2021 14:01-0500 Heart rate 68 /min Claudio Price PA-C Work Phone: [facility] 07-05-2021 14:01-0500 SaO2% (BldA) [Mass fraction] 97 % Claudio Price PA-C Work Phone: [facility] 07-05-2021 14:01-0500 Systolic blood pressure 110 mm[Hg] Claudio Price PA-C Work Phone: [facility] 06-26-2021 11:02-0500 Body height 157.5 cm Sara Bernens PA-C Work Phone: [facility] 06-26-2021 11:02-0500 Body mass index (BMI) [Ratio] 34.75 kg/m2 Sara Bernens PA-C Work Phone: [facility] 06-26-2021 11:02-0500 Body temperature 98.49 [degF] Sara Bernens PA-C Work Phone: [facility] 06-26-2021 11:02-0500 Body weight 86.18 kg Sara Bernens PA-C Work Phone: [facility] 06-26-2021 11:02-0500 Diastolic blood pressure 76 mm[Hg] Sara Bernens PA-C Work Phone: [facility] 06-26-2021 11:02-0500 Heart rate 82 /min Sara Bernens PA-C Work Phone: [facility] 06-26-2021 11:02-0500 Respiratory rate 16 /min Sara Bernens PA-C Work Phone: [facility] 06-26-2021 11:02-0500 Systolic blood pressure 122 mm[Hg] Sara Marques PA-C Work Phone: [facility] Encounters Encounter Date Encounter Type Care Provider Facility Start: 03-25-2023 End: 03-26-2023 ambulatory GWENDOLYN LU Not Available Start: 01-01-2023 End: 01-01-2023 ambulatory Moni Cain Other [facility] Other Start: 01-01-2023 Office outpatient vi sit 15 minutes Moni Cain [facility] Start: 10-31-2022 End: 10-31-2022 ambulatory Kamala Parker Other [facility] Other Start: 10-31-2022 Office outpatient ne w 20 minutes Kamala Parker [facility] Start: 06-19-2022 End: 06-19-2022 ambulatory PHYSICIAN NO [facility] Start: 05-22-2022 End: 05-22-2022 ambulatory SIDRARodger RODASJOSEPH [facility] Start: 05-22-2022 End: 05-22-2022 Patient encounter procedure Sidra Joseph PA-C Work Phone: [facility] Comment on above: Encounter for IUD in sertion (Primary Dx); Negative test; Routine screening for STI (sexually transmitted infection) Start: 05-01-2022 End: 05-01-2022 ambulatory SIDRA JOSEPH [facility] Start: 05-01-2022 End: 05-01-2022 Office outpatient new 20 minutes Sidra Joseph PA-C Work Phone: [facility] Comment on above: Pelvic pain in femal e (Primary Dx); Abnormal uterine bleeding (AUB); PCOS (polycystic ovarian syndrome) Start: 04-03-2022 End: 04-07-2022 Emergency department patient visit PHYSICIAN [facility] Start: 04-03-2022 End: 04-03-2022 Emergency department patient visit PHYSICIAN [facility] Start: 11-12-2021 End: 11-13-2021 ambulatory PHYSICIAN NO [facility] Start: 07-24-2021 ambulatory PHYSICIAN NO [facility] Start: 07-05-2021 End: 07-05-2021 ambulatory PHYSICIAN NO [facility] Start: 07-05-2021 End: 07-05-2021 Office outpatient visit 10 minutes Claudio Price PA-C Work Phone: [facility] Comment on above: Rash (Primary Dx); Fungal infection Start: 06-26-2021 End: 06-26-2021 ambulatory PHYSICIAN NO [facility] Start: 06-26-2021 End: 06-26-2021 Office outpatient visit 15 minutes Sara Marques PA-C Work Phone: [facility] Comment on above: Pityriasis rosea (Pr imary Dx); Achilles tendinitis, unspecified laterality Start: 02-23-2021 End: 02-23-2021 Clinical Support Shanell Rosas RN [facility] Comment on above: Need for vaccination (Primary Dx) Start: 02-10-2021 End: 02-10-2021 ambulatory COLETTE DE LA PAZ [facility] Start: 12-19-2020 End: 12-19-2020 ambulatory JANI SÁNCHEZ Facility:[facility] Start: 12-05-2020 End: 12-06-[address] ZAN MCCLENDON Facility:[facility] Start: 11-01-2020 ambulatory KILLIAN CURIEL Facilit y:[facility] Start: 11-01-2020 End: 11-02-2020 ambulatory KILLIAN CURIEL Facility:[facility] Start: 08-27-2020 End: 08-27-2020 [facility] Procedures Date Procedure Procedure Detail Performing Clinician Start: 05-22-2022 Iadna chlamydia trachomatis amplified probe tq Sidra Joseph PA-C Work Phone: Start: 05-22-2022 Urine test visual color cmprsn meths Sidra Joseph PA-C Work Phone: Plan of Treatment Date Care Activity Detail Author Start: 05-22-2023 Screening for Chlamy ash trachomatis Chlamydia Screening [facility] Start: 06-19-2022 End: 06-19-2022 Patient encounter procedure 06/19/2022 Office Visit Obstetrics and Gynecology Sidra Joseph PA-C [address] [place] [address] [place] [address] [facility] Start: 05-22-2022 End: 05-22-2022 Patient encounter procedure 05/22/2022 Procedure visit Obstetrics and Gynecology Sidra Joseph PA-C [address] [place] [address] [place] [address] [facility] Start: 01-17-2022 Influenza vaccination Sequenti al Influenza Vaccine (#1) [facility] Start: 11-04-2021 Tetanus vaccination Tetanus: Every 1 0yrs [facility] Start: 02-24-2021 Depression screening using PHQ-9 (Patient Health Questionnaire 9) score Depression Screening (PHQ-2/9) [facility] Comment on above: Postponed from 07/16 (Patient Refused) Start: 01-23-2021 COVID-19 Vaccine (3 - Booster for Moderna series) COVID-19 Vaccine (3 - Booster for Moderna series) [facility] Start: 10-18-2020 COVID-19 Vaccine (3 - Booster for Moderna series) COVID-19 Vaccine (3 - Booster for Moderna series) [facility] Start: 2017 Hepatitis C screening Hepatitis C Sc reening [facility] Start: 2014 HIV screening HIV Screening [facility] Start: 2011 Depression screening using PHQ-9 (Patient Health Questionnaire 9) score Depression Screening (PHQ-2/9) [facility] Start: 2002 History and physical examination, annual for health maintenance Wellness Visit [facility] Start: 1999 Screening for Chlamy ash trachomatis Chlamydia Screening [facility] Start: 1999 Screening for malign ant neoplasm of cervix Pap Smear [facility] Chlamydia trachomati s rRNA assay [facility] Work Phone: Comment on above: Ordered: 05/22/2022 Neisseria gonorrhoea e nucleic acid detection [facility] Comment on above: Ordered: 05/22/2022 Trichomonas vaginali s Amplified RNA [facility] Comment on above: Ordered: 05/22/2022 Immunizations Immunization Date Immunization Notes Care Provider Ana wilsonradha 02-23-2021 influenza, injectabl e, quadrivalent, preservative free Shanell Ralph VELASQUEZ [facility] 02-23-2021 flu vacc [id number] mos up,PF, (FLUZONE QUAD) injection Shanell Rosas RN [facility] Work Phone: 03-06-2020 influenza, injectabl e, quadrivalent, preservative free Shanell Rosas RN [facility] 11-04-2017 meningococcal B vacc ine, recombinant, OMV, adjuvanted Shanell Rosas RN [facility] 12-26-2016 meningococcal oligosaccharide (groups A, C, Y and W-135) diphtheria toxoid conjugate vaccine (MCV4O) Shanell Rosas RN [facility] 05-14-2012 hepatitis A vaccine, pediatric/adolescent dosage, 2 dose schedule Shanell Rosas RN [facility] 05-14-2012 HPV, unspecified formulation Shanell Rosas RN [facility] 01-03-2012 human papilloma viru s vaccine, quadrivalent Shanell Rosas RN [facility] 01-03-2012 varicella virus vaccine Shanell Sierra callejas RN [facility] 11-05-2011 hepatitis A vaccine, pediatric/adolescent dosage, 2 dose schedule Shanell Rosas RN [facility] 11-05-2011 human papilloma viru s vaccine, quadrivalent Shanell Rosas RN [facility] 11-05-2011 tetanus toxoid, redu cliff diphtheria toxoid, and acellular pertussis vaccine, adsorbed Shanell Rosas RN [facility] 08-02-2004 diphtheria, tetanus toxoids and acellular pertussis vaccine Shanell Rosas RN [facility] 08-02-2004 measles, mumps and rubella virus vaccine Shanell Rosas RN [facility] 08-02-2004 poliovirus vaccine, inactivated Shanell Rosas RN [facility] 01-15-2001 pneumococcal conjuga te vaccine, 7 valent Shanell Rosas RN [facility] 12-16-2000 diphtheria, tetanus toxoids and acellular pertussis vaccine, unspecified formulation Shanell Rosas RN [facility] 11-13-2000 diphtheria, tetanus toxoids and acellular pertussis vaccine, unspecified formulation Shanell Rosas RN [facility] 11-13-2000 pneumococcal conjuga te vaccine, 7 valent Shanell Rosas RN [facility] 08-07-2000 haemophilus influenz ae type b vaccine, PRP-OMP conjugate Shanell Rosas RN [facility] 08-07-2000 measles, mumps and rubella virus vaccine Shanell Rosas RN [facility] 08-07-2000 poliovirus vaccine, inactivated Shanell Rosas RN [facility] 08-07-2000 varicella virus vaccine Shanell callejas RN [facility] 07-04-2000 pneumococcal conjuga te vaccine, 7 valent Shanell Rosas RN [facility] 06-26-2000 influenza virus vacc ine, whole virus Shanell Rosas RN [facility] 05-15-2000 diphtheria, tetanus toxoids and acellular pertussis vaccine, unspecified formulation Shanell Rosas RN [facility] 05-15-2000 haemophilus influenz ae type b vaccine, PRP-OMP conjugate Shanell Rosas RN [facility] 05-15-2000 influenza virus vacc ine, whole virus Shanell Rosas RN [facility] 02-21-2000 diphtheria, tetanus toxoids and acellular pertussis vaccine, unspecified formulation Shanell Rosas RN [facility] 02-21-2000 haemophilus influenz ae type b conjugate and Hepatitis B vaccine Shanell Rosas RN [facility] 02-21-2000 poliovirus vaccine, inactivated Shanell Rosas RN [facility] 1999 diphtheria, tetanus toxoids and acellular pertussis vaccine, unspecified formulation Shanell Rosas RN [facility] 1999 haemophilus influenz ae type b conjugate and Hepatitis B vaccine Shanell Rosas RN [facility] 1999 poliovirus vaccine, inactivated Shanell Rosas RN [facility] 1999 hepatitis B vaccine, pediatric or pediatric/adolescent dosage Shanell Rsoas RN [facility] Payers Date Payer Category Payer Unknown [employer] PPO [id number] 2016-Present [phone] [address] [place] [address] [id number] 2016 Unknown [employer] PPO [id number] 2016-Present [phone] [address] [place] [address] [id number] 1999 Unknown [id number] 1999 Unknown [id number] [id number] 1999 Unknown [id number] [id number] 1999 Unknown [id number] [id number] 1999 Unknown [id number] [id number] 1999 Unknown [id number] 2.16.840.1.683898.3.579.2.903 1999 Unknown [id number] 2.16.840.1.430091.3.579.2.903 1999 Unknown [id number] 2.16.840.1.495281.3.579.2.903 1999 Unknown [id number] 2.16.840.1.566784.3.579.2.903 1999 Unknown [id number] 2.16.840.1.516707.3.579.2.903 1999 Unknown [id number] 2.16.840.1.770860.3.579.2.903 1999 Unknown [id number] 2.16.840.1.294971.3.579.2.903 1999 Unknown [id number] 2.16.840.1.908208.3.579.2.903 1999 Unknown [id number] 2.16.840.1.178579.3.579.2.903 1999 Unknown [id number] 1959 Unknown [id number] Social History Date Type Detail Facility Start: 02-10-2021 End: 05-01-2022 Tobacco smoking status NHIS Never smoked tobacco [facility] Start: 02-10-2021 End: 05-01-2022 Tobacco use and exposure Smokeless tobacco non-user [facility] Start: 1999 Sex Assigned At Not on file [facility] Start: 04-21-2022 End: 05-18-2022 Exposure to SARS-CoV-2 (event) Not sure [facility] Start: 07-05-2021 End: 05-22-2022 Alcohol intake Current drinker of alcohol (finding) [facility] Start: 07-05-2021 History SDOH Alcohol Comment weekends [facility] Sex Assigned At Sex Assigned At Bir th [facility] Other Clinical Notes 06-26-2021 to 01-01-2023 Note Date & Type Note Facility 01-01-2023 Evaluation note Encounter Date Diagnosis Assessment Notes Dec, Contact with and (suspected) exposure to covid-19 (ICD-10 - Z20.822) covid and flu neg, see above. Dec, Acute bronchitis, unspecified organism (ICD-10 - J20.9) Discussed viral nature of bronchitis and how abx will not work for tx. Steroid as directed with food. Flonase daily as directed. Pt is to use inhaler as prescribed prn for cough and wheeze. Supportive care as directed. Push fluids and rest. Pt is to take otc antipyretic prn for fever and aches. Pt is to take rx cough suppressant prn for cough. Pt is to be re-evaluated after tx if sx worsen or don't improve by pcp or UC. Discussed sx of resp distress - wheeze, sob, difficulty breathing and swallowing, chest tightness, or chest pain. Pt is to f/u immediately in ER if these sx present. Pt is to call the office with any questions or concerns regarding dx and tx. Pt understood and agreed to tx plan. [facility] Other 06-15-2023 Evaluation note* Encounter Date Diagnosis Assessment Notes Treatment Notes Treatment Clinical Notes Oct, Sore throat (ICD-10 - J02.9) Oct, Viral URI with cough (ICD-10 - J06.9) Discussed with patient exam and history is consistent with viral upper respiratory infection. Discussed viral nature of illness and typical duration of 7 to 14 days. Advised antibiotics unfortunately do not treat viral illnesses. May use symptomatic treatment such as Mucinex DM, Claritin-D. May use Tylenol for any pain/fever. Follow-up with PCP if not improving over the next 7 days, sooner if significantly worsening symptoms. Patient is concerned about possible contagious nature. Rapid strep is negative. Rapid COVID-negative. Discussed other viruses are still contagious in nature but no quarantine guidelines. Avoid sharing cups or drinks, good handwashing especially if touching mouth or nose. Patient verbalized understanding of treatment plan. [facility] Other 01-04-2023 History of Present illness Narrative* Sidra Joseph PA-C - 05/22/2022 3:09 PM EST [facility] Dis[facility] Recovery Manager Progress Note Last Encounter in Department: 05/01/2022 Next Encounter in Department: Visit date not found Subjective Chief Complaint Patient presents with Procedure Pt here for mirena insertion. -Cyrus Balbuena Chelsie Shannon is a who presents for IUD insertion. HPI Review of Systems The following portions of the patient's history were reviewed and updated as appropriate: allergies, current medications, past family history, past medical history, past social history, past surgicalhistory, and problem list. Objective BP 115/61 (BP Location: Left arm, Patient Position: Sitting, BP Cuff Size: X- large Adult) Pulse 74 Ht 5' 2 Wt 91 kg (200 lb 9.6 oz) LMP (LMP Unknown) Comment: Pt has irregular cycles BMI 36.69 kg/m Body mass index is 36.69 kg/m . No visits with results within 2 Week(s) from this visit. Latest known visit with results is: Admission on 04/03/2022, Discharged on 04/03/2022 Component Date Value Ref Range Status Sodium 04/03/2022 140 135 - 145 mmol/L Final Potassium 04/03/2022 4.2 3.5 - 5.1 mmol/L Final Chloride 04/03/2022 108 98 - 108 mmol/L Final Bicarbonate 04/03/2022 27 21 - 32 mmol/L Final Anion Gap 04/03/2022 9 (L) 10 - 20 mmol/L Final Glucose 04/03/2022 84 65 - 99 mg/dL Final BUN 04/03/2022 9 8 - 25 mg/dL Final Creatinine 04/03/2022 0.66 0.40 - 1.10 mg/dL Final eGFR 04/03/2022 127 >=60 mL/min/1.73 m2 Final Estimated GFR was calculated using the 2020 CKD-EPI creatinine equation. BUN/Creatinine Ratio 04/03/2022 13.6 10.0 - 20.0 Final Calcium 04/03/2022 9.2 8.4 - 10.2 mg/dL Final Total Protein 04/03/2022 7.6 6.0 - 8.0 g/dL Final Albumin 04/03/2022 3.3 3.2 - 5.2 g/dL Final Total Bilirubin 04/03/2022 0.3 0.0 - 1.3 mg/dL Final Bilirubin, Direct 04/03/2022 0.1 0.0 - 0.4 mg/dL Final Alkaline Phosphatase 04/03/2022 68 40 - 140 U/L Final AST 04/03/2022 11 0 - 45 U/L Final ALT 04/03/2022 15 14 - 65 U/L Final Lactic Acid 04/03/2022 0.9 0.6 - 2.0 mmol/L Final Color, Urine 04/03/2022 Red (A) Colorless, Yellow Final Clarity, Urine 04/03/2022 Cloudy (A) Clear Final Specific [place] 04/03/2022 1.021 1.005 - 1.025 Final pH, Urine 04/03/2022 6.0 5.0 - 7.0 Final Protein, Urine 04/03/2022 100 (A) Negative mg/dL Final Glucose, Urine 04/03/2022 50 (A) Negative mg/dL Final Ketones, Urine 04/03/2022 Trace (A) Negative mg/dL Final Bilirubin, Urine 04/03/2022 Negative Negative Final Urobilinogen, Urine 04/03/2022 <2.0 <2.0 mg/dL Final Blood, Urine 04/03/2022 Moderate (A) Negative Final Nitrite, Urine 04/03/2022 Negative Negative Final Leukocyte Esterase, Urine 04/03/2022 Negative Negative Final WBCs, Urine 04/03/2022 2 0 - 5 /hpf Final RBCs, Urine 04/03/2022 50 (H) 0 - 3 /hpf Final Bacteria, Urine 04/03/2022 Few (A) None Seen /hpf Final Squamous Epithelial 04/03/2022 3 0 - 4 /hpf Final Beta-hCG Qual 04/03/2022 Negative Negative Final WBC 04/03/2022 10.14 4.50 - 11.00 K/mcL Final RBC 04/03/2022 4.40 4.00 - 5.20 M/mcL Final Hemoglobin 04/03/2022 12.4 12.0 - 16.0 g/dL Final Hematocrit 04/03/2022 38.7 36.0 - 46.0 % Final MCV 04/03/2022 88.0 80.0 - 100.0 fL Final MCH 04/03/2022 28.2 26.0 - 34.0 pg Final MCHC 04/03/2022 32.0 31.0 - 37.0 g/dL Final Platelets 04/03/2022 413 (H) 150 - 400 K/mcL Final RDW - CV 04/03/2022 13.2 11.6 - 14.8 % Final MPV 04/03/2022 9.8 9.4 - 12.4 fL Final Neutrophils 04/03/2022 61.3 % Final Lymphocytes 04/03/2022 29.5 % Final Monocytes 04/03/2022 6.7 % Final Eosinophils 04/03/2022 1.5 % Final Basophils 04/03/2022 0.6 % Final IG Percent 04/03/2022 0.40 % Final The IG parameter is the percentage of metamyelocytes, myelocytes and promyelocytes. An immature granulocyte count (IG) of 1% or more suggests the possibility of infection, an IG count of 3% is very likely related to an infection. Neutrophils Abs 04/03/2022 6.22 1.70 - 7.00 K/mcL Final Lymphocytes Abs 04/03/2022 2.99 0.90 - 4.00 K/mcL Final Monocytes Abs 04/03/2022 0.68 0.30 - 0.90 K/mcL Final Eosinophils Abs 04/03/2022 0.15 0.00 - 0.50 K/mcL Final Basophils Abs 04/03/2022 0.06 0.00 - 0.30 K/mcL Final IG Absolute 04/03/2022 0.04 0.00 - 0.30 K/mcL Final Nucleated RBC 04/03/2022 0.0 % Final Nucleated RBC Abs 04/03/2022 0.00 0.00 - 0.00 K/mcL Final Extra Tube 04/03/2022 Hold for add-ons. Final Auto resulted. Extra Tube 04/03/2022 Hold for add-ons. Final Auto resulted. Culture 04/03/2022 > 10,000 CFU/mL mixture of normal urogenital microbiota Final No results found for: INTERPGYN, OTHFINDGYN, HPVRESULTS, GENCAT OBGyn Exam Procedures IUD Insertion Indication and Consent: Audra Shannon is a 21 y.o. who desires an IUD. She has been counseled regarding the risks, benefitsand alternatives to the IUD and she has the maturity to understand and consent to the procedure. She especially understands that her menstrual periods are expected to change while using the IUD. She has no contraindications to the insertion. Her questions have been answered. She has fully reviewed the FDA-approved consent brochure, has signed the consent form, and wishes to proceed with the insertion today. Procedure in Detail: BP 115/61 (BP Location: Left arm, Patient Position: Sitting, BP Cuff Size: X- large Adult) Pulse 74 Ht 5' 2 Wt 91 kg (200 lb 9.6 oz) LMP (LMP Unknown) Comment: Pt has irregular cycles BMI 36.69 kg/m Urine test was negative. In the dorsal lithotomy position, a speculum was placed in the vagina and the cervix was well-visualized. Gc/ct testing was performed at this time. The cervix was cleansed with Betadine. A tenaculum was placed on the anterior lip of the cervix. The uterus was gently sounded to 9cm. The IUD opened and loaded, and was placed using standard insertion technique. The strings were cut to 2cm. The tenaculum was removed from the cervix and hemostasis was achieved. All instruments were removed from the vagina. The patient tolerated the procedure well. IUD Information: Mirena IUD Condition: Stable Complications: None Assessment/Plan: Audra is a 21 y.o. . She presented for IUD insertion. No problems updated. Audra was seen today for procedure. Diagnoses and all orders for this visit: Encounter for IUD insertion - levonorgestreL (MIRENA) 20 mcg/24 hours (8 yrs) 52 mg IUD 1 each Negative test - POC , urine Routine screening for STI (sexually transmitted infection) - Chlamydia/GC/Trichomonas Amplified RNA The patient was advised to call for any fever, prolonged / heavy bleeding, or severe pain or bleeding. She was advised to use NSAID as needed for mild to moderate pain. Sidra Joseph PA-C documented in this [id number] History of Present illness Narrative* Sidra Joseph PA-C - 05/01/2022 2:00 PM EST [facility] Disaster Recovery Manager Progress Note Last Encounter in Department: Visit date not found Next Encounter in Department: Visit date not found Subjective PATIENT HISTORY Audra Shannon is a 21 y.o. Chief Complaint Patient presents with Consult New Patient. Was looking for a new [employer]. Symptoms got worse and went to ED then referred to us for care. At the time of ED visit had been on OCP for one month. Reports went to ED for heavy vaginal bleeding, one tampon and super pad in 30 minutes. Passed several clots. Stopped taking OCP and has stopped bleeding. IMMANUEL Acosta Data Unavailable Social History Substance and Sexual Activity Sexual Activity Not Currently Partners: Male control/protection: None Single Menstrual Status Period Pattern: (!) Irregular Pap History No results found for: INTERPGYN, OTHFINDGYN, HPVRESULTS, GENCAT HPI Audra presents to establish care, discuss BC, and follow up after ER visit for AUB. She has a history of PCOS. She has tried OCPs, patches, nuvaring, Nexplanon. Most recently, she was on OCPs. She had heavy bleeding, bleeding through a pad and tampon in 30 minutes and passing large clots, and passed out at work due to pelvic pain. She wants a control that gives her predictable bleeding and does not cause her to gain weight. We discussed IUDs vs Depo. She chose Mirena. We discussed PCOS and its impact on fertility, insulin resistance, and hair growth. She also reports vaginal odor being treated by her previous OBGYN. Recommended boric acid vaginal suppositories. The following portions of the patient's history were reviewed and updated as appropriate: allergies, current medications, past family history, past medical history, past social history, past surgicalhistory, and problem list. Review of Systems Objective OBJECTIVE FINDINGS Vitals: 05/01/22 1316 BP: 114/84 Pulse: 73 Wt Readings from Last 3 Encounters: 05/01/22 89.4 kg (197 lb) 04/03/22 90.3 kg (199 lb) 07/05/21 86.2 kg (190 lb) Body mass index is 36.03 kg/m . OBGyn Exam Neuro: She has no focal neurologic deficits. Normal gait and mobility. Psych: Mood and affect appear normal and appropriate. Maturity appropriate to patient age. HEENT: Normocephalic, EOMI. Musculoskeletal: No gross osteopathic abnormalities noted on general physical exam. Skin: Skin exam normal on brief evaluation of exposed skin with no obvious rashes or lesions. Lab Review: Admission on 04/03/2022, Discharged on 04/03/2022 Component Date Value Ref Range Status Sodium 04/03/2022 140 135 - 145 mmol/L Final Potassium 04/03/2022 4.2 3.5 - 5.1 mmol/L Final Chloride 04/03/2022 108 98 - 108 mmol/L Final Bicarbonate 04/03/2022 27 21 - 32 mmol/L Final Anion Gap 04/03/2022 9 (L) 10 - 20 mmol/L Final Glucose 04/03/2022 84 65 - 99 mg/dL Final BUN 04/03/2022 9 8 - 25 mg/dL Final Creatinine 04/03/2022 0.66 0.40 - 1.10 mg/dL Final eGFR 04/03/2022 127 >=60 mL/min/1.73 m2 Final BUN/Creatinine Ratio 04/03/2022 13.6 10.0 - 20.0 Final Calcium 04/03/2022 9.2 8.4 - 10.2 mg/dL Final Total Protein 04/03/2022 7.6 6.0 - 8.0 g/dL Final Albumin 04/03/2022 3.3 3.2 - 5.2 g/dL Final Total Bilirubin 04/03/2022 0.3 0.0 - 1.3 mg/dL Final Bilirubin, Direct 04/03/2022 0.1 0.0 - 0.4 mg/dL Final Alkaline Phosphatase 04/03/2022 68 40 - 140 U/L Final AST 04/03/2022 11 0 - 45 U/L Final ALT 04/03/2022 15 14 - 65 U/L Final Lactic Acid 04/03/2022 0.9 0.6 - 2.0 mmol/L Final Color, Urine 04/03/2022 Red (A) Colorless, Yellow Final Clarity, Urine 04/03/2022 Cloudy (A) Clear Final Specific [place] 04/03/2022 1.021 1.005 - 1.025 Final pH, Urine 04/03/2022 6.0 5.0 - 7.0 Final Protein, Urine 04/03/2022 100 (A) Negative mg/dL Final Glucose, Urine 04/03/2022 50 (A) Negative mg/dL Final Ketones, Urine 04/03/2022 Trace (A) Negative mg/dL Final Bilirubin, Urine 04/03/2022 Negative Negative Final Urobilinogen, Urine 04/03/2022 <2.0 <2.0 mg/dL Final Blood, Urine 04/03/2022 Moderate (A) Negative Final Nitrite, Urine 04/03/2022 Negative Negative Final Leukocyte Esterase, Urine 04/03/2022 Negative Negative Final WBCs, Urine 04/03/2022 2 0 - 5 /hpf Final RBCs, Urine 04/03/2022 50 (H) 0 - 3 /hpf Final Bacteria, Urine 04/03/2022 Few (A) None Seen /hpf Final Squamous Epithelial 04/03/2022 3 0 - 4 /hpf Final Beta-hCG Qual 04/03/2022 Negative Negative Final WBC 04/03/2022 10.14 4.50 - 11.00 K/mcL Final RBC 04/03/2022 4.40 4.00 - 5.20 M/mcL Final Hemoglobin 04/03/2022 12.4 12.0 - 16.0 g/dL Final Hematocrit 04/03/2022 38.7 36.0 - 46.0 % Final MCV 04/03/2022 88.0 80.0 - 100.0 fL Final MCH 04/03/2022 28.2 26.0 - 34.0 pg Final MCHC 04/03/2022 32.0 31.0 - 37.0 g/dL Final Platelets 04/03/2022 413 (H) 150 - 400 K/mcL Final RDW - CV 04/03/2022 13.2 11.6 - 14.8 % Final MPV 04/03/2022 9.8 9.4 - 12.4 fL Final Neutrophils 04/03/2022 61.3 % Final Lymphocytes 04/03/2022 29.5 % Final Monocytes 04/03/2022 6.7 % Final Eosinophils 04/03/2022 1.5 % Final Basophils 04/03/2022 0.6 % Final IG Percent 04/03/2022 0.40 % Final Neutrophils Abs 04/03/2022 6.22 1.70 - 7.00 K/mcL Final Lymphocytes Abs 04/03/2022 2.99 0.90 - 4.00 K/mcL Final Monocytes Abs 04/03/2022 0.68 0.30 - 0.90 K/mcL Final Eosinophils Abs 04/03/2022 0.15 0.00 - 0.50 K/mcL Final Basophils Abs 04/03/2022 0.06 0.00 - 0.30 K/mcL Final IG Absolute 04/03/2022 0.04 0.00 - 0.30 K/mcL Final Nucleated RBC 04/03/2022 0.0 % Final Nucleated RBC Abs 04/03/2022 0.00 0.00 - 0.00 K/mcL Final Extra Tube 04/03/2022 Hold for add-ons. Final Extra Tube 04/03/2022 Hold for add-ons. Final Culture 04/03/2022 > 10,000 CFU/mL mixture of normal urogenital microbiota Final Procedures Assessment ASSESSMENT/PLAN: Audra Shannon is a 21 y.o. . She presents for a follow up visit. Assessment: No problems updated. Audra was seen today for consult. Diagnoses and all orders for this visit: Pelvic pain in female Abnormal uterine bleeding (AUB) PCOS (polycystic ovarian syndrome) Return in about 2 weeks (around 05/15/2022) for IUD insertion. Sidra Joseph PA-C documented in this [id number] Instructions* Patient Instructions* Claudio Price PA-C - 07/05/2021 3:50 PM EST Images from the original note were not included. Tinea Versicolor: Care Instructions Your Care Instructions Tinea versicolor is a skin infection caused by a yeast (fungus). It causes many small spots, usually on the chest and back. The spotted skin can be flaky or scaly. The spots do not jeffries in the sun, sothey are airline manager than the skin around them. Some spots may be darker than the skin around them. The yeast that causes tinea versicolor normally lives on your skin. But it becomes a problem only when warmth and humidity allow the yeast to grow rapidly and increase in number. Some people are morelikely to get tinea versicolor. It does not spread from person to person. Tinea versicolor usually gets better as you age. You can treat tinea versicolor with cream or ointment that kills the yeast. You may need pills to kill the fungus if the spots cover a lot of your body. Although treatment kills the yeast quickly, your skin may not return to normal for months after treatment. You can get this condition again after treatment. Follow-up care is a nichols part of your treatment and safety. Be sure to make and go to all appointments, and call your doctor if you are having problems. It's also a good idea to know your test resultsand keep a list of the medicines you take. How can you care for yourself at home? Follow the directions for use of creams, shampoos, or solutions. You will probably need to use themfor 1 to 2 weeks. If your skin gets irritated, stop using the product, and call your doctor. To prevent tinea versicolor, use a cream, shampoo, or solution one time a month. Your doctor may prescribe pills to prevent the spots from returning. Dry off well after bathing. Keep your skin clean and dry. Always wear sunscreen on exposed skin. Make sure to use a broad-spectrum sunscreen that has a sun protection factor (SPF) of 30 or higher. Use it every day, even when it is cloudy. If you keep getting tinea versicolor, wash your clothes in very hot water to kill the yeast. When should you call for help? Call your doctor now or seek immediate medical care if: You have signs of infection such as: ? Pain, warmth, or swelling in your skin. ? Red streaks near a wound in your skin. ? Pus coming from a wound in your skin. ? A fever. Watch closely for changes in your health, and be sure to contact your doctor if: Your skin condition does not improve in 2 weeks. You do not get better as expected. Where can you learn more? Log into your personal health record on https://[employer] and enter K490 in the Education box to learn more about Tinea Versicolor: Care Instructions. Current as of: July 19, 2020 Content Version: 13.1 [employer]. Care instructions adapted under license by your healthcare professional. If you have questions about a medical condition or this instruction, always ask your healthcare professional. [employer] disclaims any warranty or liability for your use of this information. documented in this [id number] History of Present illness Narrative* Claudio Price PA-C - 07/05/2021 2:12 PM EST Images from the original note were not included. PATIENT NAME: Audra Shannon [facility] [address] [place] [id number] : 2000 DATE OF VISIT: 07/05/2021 #: [id number] PROVIDER: Claudio Price PA-C Chief Complaint Patient presents with Rash Was seen on 06/26/20, for a rash on her chest for 1 month. States the rash itches very bad. States that she is getting a rash in different areas of her body. She is concerned it is a contagious rash. She believes that she was misdiagnosed on 06/26/20. SUBJECTIVE 20 y.o. female presents Rash (Was seen on 06/26/20, for a rash on her chest for 1 month. States the rash itches very bad. States that she is getting a rash in different areas of her body. She is concerned it is a contagious rash. She believes that she was misdiagnosed on 06/26/20.) The Benadryl made her feel very tired. Patient denies recent URI. Rash This is a new problem. The current episode started 1 to 4 weeks ago. The problem has been waxing and waning since onset. The affected locations include the chest. The rash is characterized by itchiness. She was exposed to nothing. Pertinent negatives include no anorexia, congestion, cough, diarrhea, eye pain, facial edema, fatigue, fever, joint pain, nail changes, rhinorrhea, shortness of breath,sore throat or vomiting. Past treatments include antihistamine and topical steroids. The treatment provided significant relief. MEDICAL ISSUES Past Medical History: Diagnosis Date Anxiety Depression There is no problem list on file for this patient. SOCIAL HISTORY Social History Socioeconomic History Marital status: Single Tobacco Use Smoking status: Never Smoker Smokeless tobacco: Never Used Vaping Use Vaping Use: Never used Substance and Sexual Activity Alcohol use: Yes Comment: weekends Drug use: Never FAMILY HISTORY Family History Problem Relation Age of Onset No Known Problems Mother No Known Problems Father REVIEW OF SYSTEMS Review of Systems Constitutional: Negative for fatigue and fever. HENT: Negative for congestion, rhinorrhea and sore throat. Eyes: Negative for pain. Respiratory: Negative for cough and shortness of breath. Gastrointestinal: Negative for anorexia, diarrhea and vomiting. Musculoskeletal: Negative for joint pain. Skin: Positive for rash. Negative for nail changes. MEDICATIONS PRIOR TO VISIT Current Outpatient Medications on File Prior to Visit Medication Sig Dispense Refill ARIPiprazole (ABILIFY) 10 MG disintegrating tablet Dissolve 10 mg on top of tongue daily . propranoloL (INDERAL) 10 MG tablet Take 10 mg by mouth 2 (two) times a day . sertraline (ZOLOFT) 50 MG tablet Take 50 mg by mouth daily . diphenhydrAMINE (BENADRYL) 25 mg capsule Take 1 (one) capsule (25 mg total) by mouth every 4 (four)hours as needed for itching . (Patient not taking: Reported on 07/05/2021 .) 24 capsule 2 phentermine (ADIPEX-P) 37.5 mg tablet Take 37.5 mg by mouth every morning . No current facility-administered medications on file prior to visit. ALLERGIES/INTOLERANCES Allergies Allergen Reactions Nsaids (Non-Steroidal Anti-Inflammatory Drug) Anaphylaxis OBJECTIVE BP 110/72 (BP Location: Right arm, Patient Position: Sitting, BP Cuff Size: X- large Adult) Pulse 68 Temp 98.5 F (36.9 C) (Infrared) Ht 5' 2 Comment: per pt. Wt 86.2 kg (190 lb) Comment: per pt. LMP 06/28/2021 (Within Days) SpO2 97% BMI 34.75 kg/m Physical Exam Vitals and nursing note reviewed. Constitutional: General: She is not in acute distress. Appearance: She is well-developed and well-nourished. HENT: Head: Normocephalic and atraumatic. Eyes: General: Right eye: No discharge. Left eye: No discharge. Pulmonary: Effort: Pulmonary effort is normal. No respiratory distress. Chest: Comments: Roughly 1.5cm erythematous circumferential lesion with central clearing Musculoskeletal: General: Normal range of motion. Cervical back: Normal range of motion. Neurological: Mental Status: She is alert. Psychiatric: Mood and Affect: Mood and affect normal. Behavior: Behavior normal. Thought Content: Thought content normal. Judgment: Judgment normal. PROCEDURE Procedures Results No results found for this or any previous visit (from the past 168 hour(s)). ASSESSMENT/PLAN (expressed as patient instructions): 1. Rash Ambulatory referral to Dermatology 2. Fungal infection cetirizine (ZYRTEC) 10 MG tablet ketoconazole (NIZORAL) 2 % cream Return if symptoms worsen or fail to improve. MDM Section Zyrtec AM; Benadryl PM PRN. Ketoconazole cream. Discontinue steroid at this time in case fungal component. Head and Shoulder dandruff shampoo to wash body. Derm referral placed. Discussed return to care protocol and red flag signs; patient verbally understood and agreed to treatment plan. ORDERS PLACED THIS VISIT Orders Placed This Encounter Procedures Ambulatory referral to Dermatology MEDICATION LIST AT END OF VISIT Current Outpatient Medications Medication Sig Dispense Refill ARIPiprazole (ABILIFY) 10 MG disintegrating tablet Dissolve 10 mg on top of tongue daily . propranoloL (INDERAL) 10 MG tablet Take 10 mg by mouth 2 (two) times a day . sertraline (ZOLOFT) 50 MG tablet Take 50 mg by mouth daily . cetirizine (ZYRTEC) 10 MG tablet Take 1 (one) tablet (10 mg total) by mouth daily . 30 tablet 11 diphenhydrAMINE (BENADRYL) 25 mg capsule Take 1 (one) capsule (25 mg total) by mouth every 4 (four)hours as needed for itching . (Patient not taking: Reported on 07/05/2021 .) 24 capsule 2 ketoconazole (NIZORAL) 2 % cream Apply to affected area daily for 2 weeks . 30 g 0 phentermine (ADIPEX-P) 37.5 mg tablet Take 37.5 mg by mouth every morning . No current facility-administered medications for this visit. documented in this [id number] History of Present illness Narrative* Sara Marques PA-C - 06/26/2021 12:06 PM EST PATIENT NAME: Audra Shannon [facility] [address] [place] [address] A [facility] [id number] : 2000 DATE OF VISIT: 06/26/2021 #: [id number] PROVIDER: Sara Marques PA-C Chief Complaint Patient presents with Rash Chest, itchy x 10 d Foot Injury Left heel pain, worsens with activity SUBJECTIVE 20 y.o. female presents Rash (Chest, itchy x 10 d ) and Foot Injury (Left heel pain, worsens with activity ) HPI Noticed itchy rash about 7-10 days ago. Hydrocortisone cream helps a little bit. Itching worse first thing in am. Denies recent or cold/flu symptoms. Denies pets in the house. Rash localized to upper and lower chest and some on breasts. A couple weeks ago slipped on the ice. Achilles tendon has been painful on and off ever since. Had similar problem with sports in high school. Only on left side. Denies swelling. Pain shoots up left ankle/leg. Denies OTC meds or other relievers. Walking makes pain worse. MEDICAL ISSUES Past Medical History: Diagnosis Date Anxiety Depression There is no problem list on file for this patient. SOCIAL HISTORY Social History Socioeconomic History Marital status: Single Tobacco Use Smoking status: Never Smoker Smokeless tobacco: Never Used Vaping Use Vaping Use: Never used FAMILY HISTORY History reviewed. No pertinent family history. REVIEW OF SYSTEMS Review of Systems Constitutional: Negative for appetite change, chills and fever. HENT: Negative for congestion, ear pain, postnasal drip, rhinorrhea, sinus pain, sneezing, sore throat and trouble swallowing. Respiratory: Negative for cough, shortness of breath and wheezing. Cardiovascular: Negative for chest pain. Gastrointestinal: Negative for abdominal pain, diarrhea, nausea and vomiting. Musculoskeletal: Positive for arthralgias (left ankle/achilles). Negative for myalgias and neck pain. Skin: Positive for rash. Negative for pallor. Neurological: Negative for headaches. MEDICATIONS PRIOR TO VISIT Current Outpatient Medications on File Prior to Visit Medication Sig Dispense Refill ARIPiprazole (ABILIFY) 10 MG disintegrating tablet Dissolve 10 mg on top of tongue daily . propranoloL (INDERAL) 10 MG tablet Take 10 mg by mouth 2 (two) times a day . sertraline (ZOLOFT) 50 MG tablet Take 50 mg by mouth daily . phentermine (ADIPEX-P) 37.5 mg tablet Take 37.5 mg by mouth every morning . No current facility-administered medications on file prior to visit. ALLERGIES/INTOLERANCES Allergies Allergen Reactions Nsaids (Non-Steroidal Anti-Inflammatory Drug) Anaphylaxis OBJECTIVE BP 122/76 Pulse 82 Temp 98.5 F (36.9 C) Resp 16 Ht 5' 2 Wt 86.2 kg (190 lb) BMI 34.75 kg/m Physical Exam Vitals and nursing note reviewed. Constitutional: Appearance: She is well-developed and well-nourished. HENT: Head: Normocephalic and atraumatic. Eyes: Extraocular Movements: EOM normal. Conjunctiva/sclera: Conjunctivae normal. Pupils: Pupils are equal, round, and reactive to light. Pulmonary: Effort: Pulmonary effort is normal. Musculoskeletal: Cervical back: Normal range of motion. Skin: General: Skin is warm and dry. Comments: Prewitt colored, slightly raised, scaling patches over anterior chest and breasts Neurological: Mental Status: She is alert and oriented to person, place, and time. Psychiatric: Mood and Affect: Mood and affect normal. Behavior: Behavior normal. PROCEDURE Procedures Results No results found for this or any previous visit (from the past 168 hour(s)). ASSESSMENT/PLAN (expressed as patient instructions): 1. Pityriasis rosea diphenhydrAMINE (BENADRYL) 25 mg capsule 2. Achilles tendinitis, unspecified laterality No follow-ups on file. MDM Section ORDERS PLACED THIS VISIT No orders of the defined types were placed in this encounter. MEDICATION LIST AT END OF VISIT Current Outpatient Medications Medication Sig Dispense Refill ARIPiprazole (ABILIFY) 10 MG disintegrating tablet Dissolve 10 mg on top of tongue daily . propranoloL (INDERAL) 10 MG tablet Take 10 mg by mouth 2 (two) times a day . sertraline (ZOLOFT) 50 MG tablet Take 50 mg by mouth daily . diphenhydrAMINE (BENADRYL) 25 mg capsule Take 1 (one) capsule (25 mg total) by mouth every 4 (four)hours as needed for itching . 24 capsule 2 phentermine (ADIPEX-P) 37.5 mg tablet Take 37.5 mg by mouth every morning . No current facility-administered medications for this visit. documented in this [id number] Instructions* Patient Instructions* Sara Marques PA-C - 06/26/2021 11:33 AM EST Images from the original note were not included. Pityriasis Rosea: Care Instructions Your Care Instructions Pityriasis rosea (say nkx-hv-JB-uh-rosy ADELINE-zee-uh ) is a common skin rash. It usually starts as one scaly, reddish-pink spot on your stomach or back. Days or weeks later, more spots appear. The rashmay itch, but it will not spread to other people. No one knows what causes pityriasis rosea. Some doctors believe it is a reaction to a virus. Pityriasis rosea is most common in children and young adults. It lasts 1 to 3 months and then goes away on its own. Medicine can help relieve any itching. Follow-up care is a nichols part of your treatment and safety. Be sure to make and go to all appointments, and call your doctor if you are having problems. It's also a good idea to know your test resultsand keep a list of the medicines you take. How can you care for yourself at home? Use your medicine exactly as prescribed. Call your doctor if you have any problems with your medicine. Expose your skin to small amounts of sunlight, but avoid sunburn. Sunlight can lessen the rash. Use a mild soap, such as Dove or Cetaphil, when you wash your skin. Add a handful of oatmeal (ground to a powder) to your bath. Or you can try an oatmeal bath product,such as Aveeno. Keep the water warm or lukewarm. A hot bath or shower may make the rash more visible and itchy. Use an anko-zew-rlnahuf 1% hydrocortisone cream for small itchy areas. When should you call for help? Call your doctor now or seek immediate medical care if: You have signs of infection such as: ? Pain, warmth, or swelling near the rash. ? Red streaks near the rash. ? Pus coming from the rash. ? A fever. Watch closely for changes in your health, and be sure to contact your doctor if: You see the rash on the palms of your hands or the soles of your feet. You do not get better as expected. Where can you learn more? Log into your personal health record on https://[employer] Guard and enter S327 in the Education box to learn more about Pityriasis Rosea: Care Instructions. Current as of: July 19, 2020 Content Version: 13.1 [employer]. Care instructions adapted under license by your healthcare professional. If you have questions about a medical condition or this instruction, always ask your healthcare professional. [employer] disclaims any warranty or liability for your use of this information. Achilles Tendon: Exercises Introduction Here are some examples of exercises for you to try. The exercises may be suggested for a condition or for rehabilitation. Start each exercise slowly. Ease off the exercises if you start to have pain. You will be told when to start these exercises and which ones will work best for you. How to do the exercises Toe stretch 1. Sit in a chair, and extend your affected leg so that your heel is on the floor. 2. With your hand, reach down and pull your big toe up and back. Pull toward your ankle and away from the floor. 3. Hold the position for at least 15 to 30 seconds. 4. Repeat 2 to 4 times a session, several times a day. Calf-plantar fascia stretch 1. Sit with your legs extended and knees straight. 2. Place a towel around your foot just under the toes. 3. Hold each end of the towel in each hand, with your hands above your knees. 4. Pull back with the towel so that your foot stretches toward you. 5. Hold the position for at least 15 to 30 seconds. 6. Repeat 2 to 4 times a session, up to 5 sessions a day. Floor stretch 1. Stand about 2 feet from a wall, and place your hands on the wall at about shoulder height. Or you can stand behind a chair, placing your hands on the back of it for balance. 2. Step back with the leg you want to stretch. Keep the leg straight, and press your heel into the floor with your toe turned slightly in. 3. Lean forward, and bend your other leg slightly. Feel the stretch in the Achilles tendon of your back leg. Hold for at least 15 to 30 seconds. 4. Repeat 2 to 4 times a session, up to 5 sessions a day. Stair stretch 1. Stand with the balls of both feet on the edge of a step or curb (or a medium- sized phone book). With at least one hand, hold onto something solid for balance, such as a banister or handrail. 2. Keeping your affected leg straight, slowly let that heel hang down off of the step or curb untilyou feel a stretch in the back of your calf and/or Achilles area. Some of your weight should still be on the other leg. 3. Hold this position for at least 15 to 30 seconds. 4. Repeat 2 to 4 times a session, up to 5 times a day or whenever your Achilles tendon starts to feel tight. This stretch can also be done with your knee slightly bent. Strength exercise 1. This exercise will get you started on building strength after an Achilles tendon injury. Your doctor or physical therapist can help you move on to more challenging exercises as you heal and get stronger. 2. Stand on a step with your heel off the edge of the step. Hold on to a handrail or wall for balance. 3. Push up on your toes, then slowly count to 10 as you lower yourself back down until your heel isbelow the step. If it hurts to push up on your toes, try putting most of your weight on your other foot as you push up, or try using your arms to help you. If you can't do this exercise without causing pain, stop the exercise and talk to your doctor. 4. Repeat the exercise 8 to 12 times, half with the knee straight and half with the knee bent. Follow-up care is a nichols part of your treatment and safety. Be sure to make and go to all appointments, and call your doctor if you are having problems. It's also a good idea to know your test resultsand keep a list of the medicines you take. Where can you learn more? Log into your personal health record on https://[employer] Guard and enter M689 in the Education box to learn more about Achilles Tendon: Exercises. Current as of: November 16, 2020 Content Version: 13.1 [id number] [employer]. Care instructions adapted under license by your healthcare professional. If you have questions about a medical condition or this instruction, always ask your healthcare professional. [employer] disclaims any warranty or liability for your use of this information. [facility]* Diagnosis Need for vaccination- Primary Need for prophylactic vaccination and inoculation against unspecified single disease [facility] Diagnosis Pityriasis rosea- Primary Achilles tendinitis, unspecified laterality [facility] Diagnosis Rash- Primary Rash and other nonspecific skin eruption Fungal infection Other and unspecified mycoses [facility] Diagnosis Pelvic pain in female- Primary Unspecified symptom associated with female genital organs Abnormal uterine bleeding (AUB) PCOS (polycystic ovarian syndrome) Polycystic ovaries [facility] Diagnosis Encounter for IUD insertion- Primary Insertion of intrauterine contraceptive device Negative test examination or test, negative result Routine screening for STI (sexually transmitted infection) Screening examination for venereal disease [facility] Diagnosis Encounter for IUD insertion- Primary Insertion of intrauterine contraceptive device Negative test examination or test, negative result Routine screening for STI (sexually transmitted infection) Screening examination for venereal disease [facility] - Reported* Type Description Date Medical History PCOS Medical History anxiety Surgical History cleft palate Surgical History PE tubes Hospitalization History see surgical hx [facility] Other History general Narrative - Reported* Type Description Date Medical History PCOS Medical History anxiety Surgical History cleft palate Surgical History PE tubes Surgical History wisdom teeth Hospitalization History see surgical hx [facility] Other Summary Purpose Family History No Family History Records FoundNo Family History Records FoundNo Family History Records FoundNo Family History Records FoundNo Family History Records FoundNo Family History Records FoundNo Family History Records Found Advance Directives No Advanced Directives Records FoundDocuments on File Type Date Recorded 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 Expl anation Advance Directives and Living Will Documents on File Type Date Recorded 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 Expl anation Advance Directives and Living Will Reason for Referral Specialty Diagnoses / Procedures Referred By Cindy henderson Referred To Contact Dermatology Diagnoses Claudio Neves PA-C [address] [place] [address] [place] [address] Kayleigh Pickard DO [address] [place] [address] Referral ID Status Reason Start Date Expiration Date Visits Requested Visits Authorized [id number] Authorized Specialty Services Required/Pat ient's Best Interest 08/02/2021 08/02/2022 1 1 Additional Source Comments INFORMATION SOURCE (unrecogn ized section and content) DATE CREATED AUTHOR 08/27/2020 [facility] DATE CREATED AUTHOR AUTHOR'S ORGANIZ ATION 11/23/2020 [facility] DATE CREATED AUTHOR AUTHOR'S ORGANIZ ATION 12/23/2020 [facility] DATE CREATED AUTHOR AUTHOR'S ORGANIZ ATION [facility] DATE CREATED AUTHOR AUTHOR'S ORGANIZ ATION 05/08/2022 [facility] DATE CREATED AUTHOR AUTHOR'S ORGANIZ ATION 06/20/2022 [facility] DATE CREATED AUTHOR AUTHOR'S ORGANIZ ATION 03/30/2023 [facility] EPIC Reason for Visit (unrecogniz ed section and content) Reason Comments Injections Influenza vaccine Reason Comments Rash Chest, itchy x 10 d Foot Injury Left heel pain, wors ens with activity Reason Comments Rash Was seen on 06/26/20, for a rash on her chest for 1 month. States the rash itches very bad. States that she is getting a rash in different areas of her body. She is concerned it is a contagious rash. She believes that she was misdiagnosed on 06/26/20. Reason Comments Consult New Patient. 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 Symptoms got worse and went to ED then referred to us for care. At the time of ED visit had been on OCP for one month. Reports went to ED for heavy vaginal bleeding, one tampon and super pad in 30 minutes. Passed several clots. Stopped taking OCP and has stopped bleeding. -IMMANUEL Gil Reason Comments Procedure Pt here for mirena i nsertion. -Cyrus GAMBINO Care Teams (unrecognized sec tion and content) Assistant Reading Teacher Relationship Specialty Start Date End Date No, Physician [facility] PCP - General 03/28/20 Assistant Reading Teacher Relationship Specialty Start Date End Date No, Physician [facility] PCP - General 03/28/20 Assistant Reading Teacher Relationship Specialty Start Date End Date No, Physician [facility] PCP - General 03/28/20 Assistant Reading Teacher Relationship Specialty Start Date End Date No, Physician [facility] PCP - General 03/28/20 Claudio Price PA-C [address] [place] [address] [place] [id number] PCP - ALEX Attributed Provider - [employer] 01/18/16 05/18/50 Assistant Reading Teacher Relationship Specialty Start Date End Date No, Physician [facility] PCP - General 03/28/20 Claudio Price PA-C [address] [place] [address] [place] [address] PCP - ALEX Attributed Provider - [employer] 01/18/16 05/18/50 Assistant Reading Teacher Relationship Specialty Start Date End Date No, Physician [facility] PCP - General 03/28/20 Claudio Price PA-C [address] [place] [address] [place] [address] PCP - ALEX Attributed Provider - [employer] 01/18/16 05/18/50 FOR RECORDS PERTAINING TO PATIENTS WHO ARE OR HAVE BEEN ENROLLED IN A CHEMICAL DEPENDENCY/SUBSTANCEABUSE PROGRAM, SOME INFORMATION MAY BE OMITTED. This clinical summary was aggregated from multiple sources. Caution should be exercised in using it in the provision of clinical care. This summary normalizes information from multiple sources, and as a consequence, information in this document may materially change the coding, format and clinical context of patient data. In addition, data may be omitted in some cases. CLINICAL DECISIONS SHOULD BE BASED ON THE PRIMARY CLINICAL RECORDS. [facility]. provides no warranty or guarantee of the accuracy or completeness of information in this document.
[2023-08-02 15:10] LABS: Age Gdln ACOG Testing Note (.); IGP, rfx Aptima HPV ASCU Note (.)
== END 2023-07-29 20:54 | disposition home or self-care (01) ==
LOC: LAB 20:53
PROVIDERS: PCP Family Medicine; Visit Provider Physician Assistant
DX: Z01.419 Encounter for gynecological examination (general) (routine) without abnormal findings (principal)
CPT/HCPCS: G0145

== ENCOUNTER 2024-02-03 14:25 | Outpatient (OUT) | payer OTHER, SELFPAY ==
--- NOTE | 2024-02-03 14:30 | ECG_ITS ---
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
--- OUTSIDE RECORDS SUMMARY | 2024-02-03 14:45 | XMS_ITS | CCD ---
Author Organization [facility] Care Team Providers Care Recycling Tech Name Role Phone JCFILIBERTO NICKOLAS Referring Unavailable JESSICACECILIOSARA FILIBERTO NICKOLAS Admitting Unavailable NO, PHYSICIAN Primary Care Unavailable [...] e No, Physician Primary Care Provider Unavailabl e Claudio Price PA-C Unavailable [phone] HELDER ALEXANDER Referring Unava ilable NO, PHYSICIAN Primary Care Unavailable HELDER ALEXANDER Attending Unava ilable NO, PHYSICIAN Primary Care Unavailable CHRISTEN PIERCE Referring Unavailabl e NO, PHYSICIAN Primary Care Unavailable ROGERIO ALEXANDRE Attending Unavail able SIDRA JOSEPH Attending Unavailable NO, PHYSICIAN Primary Care Unavailable SIDRA JOSEPH Attending Unavailable NO, PHYSICIAN Primary Care Unavailable NO, PHYSICIAN Primary Care Unavailable SIDRA JOSEPH Attending Unavailable Kamala Parker Unavailable Moni Cain Unavailable ERICKA TOBIAS Attending Unavailable GWENDOLYN LU Attending Unavailable GWENDOLYN LU Attending Unavailable Allergies Allergy Classification Reported Allergen(s) Allergy Type Date of Onset Reaction(s) Facility (6 sources) Non-steroidal anti-inflammatory agent; Translations: [NSAIDS (NON-STEROIDAL ANTI-INFLAMMATORY DRUG)] Propensity to adverse reactions to drug 02-10-2021 Anaphylaxis [facility] (9 sources) Non-steroidal anti-inflammatory agent Propensity to adverse reactions to drug 02-10-2021 Anaphylaxis [facility] Medications Current Medications Medication Drug Class(es) Dates Sig (Normalized) Sig (Original) [id number] 200 actuat albuterol 0.09 mg/actuat metered dose [...] Active Start: 03-07-2016 take 1 capsule by [facility] three times daily as needed Tessalon Perles [...] 30 g 0 07/05/2021 05/01/2022 Discontinued levonorgestrel 0.104402 mg/hr intrauterine system (11 sources) Progestin, Progestin-containi [...] (COVID-19) RNA MODESTA+probe Ql (Unsp spec) Negative Located Within [facility] Other COVID/FLU RT-PCR Negative [facility] Other COVID Quick Testingon 2022 Result Negative Located Within [facility] Other Quick Strepon 10-31-2022 S. pyogenes Org specific cx Ql (Throat) Negative [facility] Other Quick Strep [facility]verify [facility] Other Chlamydia/Gonorrhoeae Amplif ied RNAOrdered By: Tiffany Abbasi on 05-23-2022 C. trachomatis rRNA MODESTA+probe Ql (Vag fld) Negative [facility] N. gonorrhoeae rRNA MODESTA+probe Ql (Vag fld) Negative Negative [facility] No Panel InformationOrdered By: Tiffany Abbasi on 05-23-2022 Interpretation and review of laboratory results Normal [facility] Trichomonas vaginalis Amplif ied RNAon 05-23-2022 T. vaginalis rRNA MODESTA+probe Ql (Vag fld) Negative Negative [facility] HCG ( test) Ql (U)O rdered By: Erin oCttrell on 05-22-2022 Internal Control Pass [facility] Interpretation and review of laboratory results Normal [facility] Laboratory - Chemistry and C hemistry - challengeOrdered By: Erin Cottrell on 05-22-2022 HCG ( test) Ql (U) Negative Negative [facility] PELVIC TRANSABDOMINAL AND TRANSVAGINAL WITH COLOR FLOWon [...] FriApr 03, 2022 2:48:51 PM EST Normal [facility] Comment on above: Order Comment: Injur y/Trauma [...] FriNov 12, 2021 11:20:08 AM EDT Normal [facility] Comment on above: Order Comment: Injur y/Trauma or Illness?:Illness/Other How long have you had these symptoms (acute/chronic)?:Acute Reason for exam?:cough sob History of cancer?:no Surgeries, chemotherapy, or radiation?:no Type of Exam?:Initial Additional signs and symptoms?:tested + for covid last week COVID-19, MOLECULARon 2020 INTERNAL CONTROL (DHALIWAL ID) Pass Normal [facility] SARS-CoV-2 (COVID-19) Ab IA Ql Not detected Normal Not Detected [facility] PAP ACOG PANEL 3: 21 to 29on 12-22-2020 . . Normal [facility] Comment on above: Result Comment: Perf ormed at: WB Performed By: #### [id number] #### [facility] [address] [place], [place] [address] Danae Gwendolyn Age Gdln ACOG Testing - Normal [facility] Comment on above: Performed By: #### [id number] #### [facility] [address] [place], [place] [address] Danae Gwendolyn Chlamydia, Nuc. Acid Amp Negative Normal Negative [facility] Comment on above: Result Comment: Perf ormed at: =G Performed By: #### [id number] #### [facility] [address] [place] [address] Danae Junioren DIAGNOSIS: Comment Normal [facility] Comment on above: Result Comment: NEGA TIVE FOR INTRAEPITHELIAL LESION OR MALIGNANCY. CELLULAR CHANGES ASSOCIATED WITH INFLAMMATION ARE PRESENT. THIS SPECIMEN WAS RESCREENED PART OF OUR JAMMER OPERATOR PROGRAM. Performed at: WB Performed By: #### [id number] #### [facility] [address] [place] [address] Danae Snow Gonococcus, Nuc. Acid Amp Negative Normal Negative [facility] Comment on above: Result Comment: Perf ormed at: =G Performed By: #### [id number] #### [facility] [address] [place] [address] Danae Snow Methodology: Comment Normal [facility] Comment on above: Result Comment: This liquid based ThinPrep(R) pap test was screened with the use of an image guided system. Performed at: WB Performed By: #### [id number] #### [facility] [address] [place] [address] Danae Snow Note: Comment Normal [facility] Comment on above: Result Comment: The Pap smear is a screening test designed to aid in the detection of premalignant and malignant conditions of the uterine cervix. It is not a diagnostic procedure and should not be used as the sole means of detecting cervical cancer. Both false-positive and false-negative reports do occur. . Performed at: WB Performed By: #### [id number] #### [facility] [address] [place] [address] Danae Snow Performed by: Comment Normal [facility] Comment on above: Result Comment: Santos Vuong, Cryptologic Technician Technical (ASCP) Performed at: WB Performed By: #### [id number] #### [facility] [address] [place] [address] Danae Snow QC reviewed by: Comment Normal [facility] Comment on above: Result Comment: Elijah Ann, Supervisory Cryptologic Technician Technical (ASCP) Performed at: WB Performed By: #### [id number] #### [facility] [address] [place] [address] Danae Snow Reflex Criteria: Comment Normal [facility] Comment on above: Result Comment: The HPV DNA reflex criteria were not met with this specimen result therefore, no HPV testing was performed. . Performed at: WB Performed By: #### [id number] #### [facility] [address] [place] [address] Danae Snow Specimen adequacy: Comment Normal [facility] Comment on above: Result Comment: Sati sfactory for evaluation. Endocervical and/or squamous metaplastic cells (endocervical component) are present. Performed at: WB Performed By: #### [id number] #### [facility] [address] [place] [address] Danae Snow US SINGLE QUAD RT UPPERon [...] thickening, or pericholecystic free fluid. Negative sonographic Soares's sign. BILIARY: No abnormal dilation or stones. [...] YOUSIF ARIAS Date: 2020-12-05 13:58 Normal [facility] CBCon 11-01-2020 Basophils (Bld) [#/Vol] 0.04 10*3/uL Normal <=0.2 [facility] Comment on above: Performed By: #### D DIMR, TNIH, CBC, COMPH #### [facility] [address] [place] [address] Basophils/100 WBC (Bld) 0.4 % Normal [facility] Comment on above: Performed By: #### D DIMR, TNIH, CBC, COMPH #### [facility] [address] [place] [address] Eosinophils (Bld) [#/Vol] 0.24 10*3/uL Normal <=0.60 [facility] Comment on above: Performed By: #### D DIMR, TNIH, CBC, COMPH #### [facility] [address] [place] [address] Eosinophils/100 WBC (Bld) 2.5 % Normal [facility] Comment on above: Performed By: #### D DIMR, TNIH, CBC, COMPH #### [facility] [address] [place] [address]66 Hematocrit (Bld) [Volume fraction] 40.3 % Normal 35.0-45.[address] [facility] Comment on above: Performed By: #### D DIMR, TNIH, CBC, COMPH #### [facility] [address] [place] [address] 12897 Hemoglobin (Bld) [Mass/Vol] 13.1 g/dL Normal 11.8-15.[address] [facility] Comment on above: Performed By: #### D DIMR, TNIH, CBC, COMPH #### [facility] [address] [place] [address] 51669 Immature granulocytes (Bld) [#/Vol] 0.02 10*3/uL Normal 0.00-0.[address] [facility] Comment on above: Performed By: #### D DIMR, TNIH, CBC, COMPH #### [facility] [address] [place] [address] 90282 Immature granulocytes/100 WBC (Bld) 0.2 % Normal [facility] Comment on above: Performed By: #### D DIMR, TNIH, CBC, COMPH #### [facility] [address] [place] [address] Lymphocytes (Bld) [#/Vol] 2.71 10*3/uL Normal 1.00-4.50 [facility] Comment on above: Performed By: #### D DIMR, TNIH, CBC, COMPH #### [facility] [address] [place] [address] 23957 Lymphocytes/100 WBC (Bld) 28.1 % Normal [facility] Comment on above: Performed By: #### D DIMR, TNIH, CBC, COMPH #### [facility] [address] [place] [address] 17160 MCH (RBC) [Entitic mass] 27.9 pg Normal 27.0-34.0 [facility] Comment on above: Performed By: #### D DIMR, TNIH, CBC, COMPH #### [facility] [address] [place] [address] 92767 MCHC (RBC) [Mass/Vol] 32.5 g/dL Normal 31.0-36.0 [facility] Comment on above: Performed By: #### D DIMR, TNIH, CBC, COMPH #### [facility] [address] [place] [address] 10564 MCV (RBC) [Entitic vol] 85.9 fL Normal 81.0-100.0 [facility] Comment on above: Performed By: #### D DIMR, TNIH, CBC, COMPH #### [facility] [address] [place] [address] 88358 Monocytes (Bld) [#/Vol] 0.66 10*3/uL Normal 0.10-0.80 [facility] Comment on above: Performed By: #### D DIMR, TNIH, CBC, COMPH #### [facility] [address] [place] [address] MONOS 6.8 % Normal [facility] Comment on above: Performed By: #### D DIMR, TNIH, CBC, COMPH #### [facility] [address] [place] [address] 07089 Neutrophils (Bld) [#/Vol] 5.97 10*3/uL Normal 1.50-7.50 [facility] Comment on above: Performed By: #### D DIMR, TNIH, CBC, COMPH #### [facility] [address] [place] [address] 74409 Platelet mean volume (Bld) [Entitic vol] 9.8 fL Normal 8.5-13.0 [facility] Comment on above: Performed By: #### D DIMR, TNIH, CBC, COMPH #### [facility] [address] [place] [address] 36623 Platelets (Bld) [#/Vol] 362 10*3/uL Normal 150-400 [facility] Comment on above: Performed By: #### D DIMR, TNIH, CBC, COMPH #### [facility] [address] [place] [address] 62302 RBC (Bld) [#/Vol] 4.69 10*6/uL Normal 3.80-5.10 [facility] [place] Comment on above: Performed By: #### D DIMR, TNIH, CBC, COMPH #### [facility] [address] [place] [address] 50446 RDW (STD DEVIATION) 43.9 fL Normal 38.0-48.0 [facility] [place] Comment on above: Performed By: #### D DIMR, TNIH, CBC, COMPH #### [facility] [address] [place] [address] 97270 SEGS 62.0 % Normal [facility] Comment on above: Performed By: #### D DIMR, TNIH, CBC, COMPH #### [facility] [address] [place] [address] 16452 WBC (Bld) [#/Vol] 9.64 10*3/uL Normal 4.50-11.00 [facility] [place] Comment on above: Performed By: #### D DIMR, TNIH, CBC, COMPH #### [facility] [address] [place] [address] 07741 COMPREHENSIVE METABOLIC PANE Felipe 11-01-2020 Albumin [Mass/Vol] 3.5 g/dL Normal 3.5-5.0 [facility] Comment on above: Performed By: #### D DIMR, TNIH, CBC, COMPH #### [facility] [address] [place] [address] 59335 ALP [Catalytic activity/Vol] 76 U/L Normal 34-115 [facility] Comment on above: Performed By: #### D DIMR, TNIH, CBC, COMPH #### [facility] [address] [place] [address] 51583 ALT [Catalytic activity/Vol] 25 U/L Normal 11-66 [facility] Comment on above: Performed By: #### D DIMR, TNIH, CBC, COMPH #### [facility] [address] [place] [address] 94382 AST [Catalytic activity/Vol] 29 U/L Normal 5-40 [facility] Comment on above: Performed By: #### D DIMR, TNIH, CBC, COMPH #### [facility] [address] [place] [address] 36250 Bilirubin [Mass/Vol] 0.4 mg/dL Normal 0.2-1.3 [facility] Comment on above: Result Comment: Prom acta (Eltrombopag) use may falsely elevate total bilirubin results. Performed By: #### D DIMR, TNIH, CBC, COMPH #### [facility] [address] [place] [address] 77008 Calcium [Mass/Vol] 9.1 mg/dL Normal 8.3-10.0 [facility] Comment on above: Performed By: #### D DIMR, TNIH, CBC, COMPH #### [facility] [address] [place] [address] Chloride [Moles/Vol] 102 mmol/L Normal 99-109 [facility] Comment on above: Performed By: #### D DIMR, TNIH, CBC, COMPH #### [facility] [address] [place] [address] CO2 [Moles/Vol] 23 mmol/L Normal 22-32 [facility] Comment on above: Performed By: #### D DIMR, TNIH, CBC, COMPH #### [facility] [address] [place] [address] Creatinine [Mass/Vol] 0.81 mg/dL Normal 0.55-1.02 [facility] Comment on above: Performed By: #### D DIMR, TNIH, CBC, COMPH #### [facility] [address] [place] [address] 22556 GFR >60.00 Normal >=60 [facility] Comment on above: Result Comment: Unit [...] CBC, COMPH #### [facility] [address] [place] [address] GFR NON- >60.00 Normal >=60 [facility] Comment on above: Result Comment: Unit s [...] CBC, COMPH #### [facility] [address] [place] [address] Glucose [Mass/Vol] 88 mg/dL Normal 65-110 [facility] Comment on above: Performed By: #### D DIMR, TNIH, CBC, COMPH #### [facility] [address] [place] [address] 83224 Potassium [Moles/Vol] 4.3 mmol/L Normal 3.6-5.0 [facility] Comment on above: Performed By: #### D DIMR, TNIH, CBC, COMPH #### [facility] [address] [place] [address] Protein [Mass/Vol] 7.3 g/dL Normal 6.3-8.2 [facility] Comment on above: Performed By: #### D DIMR, TNIH, CBC, COMPH #### [facility] [address] [place] [address] Sodium [Moles/Vol] 140 mmol/L Normal 139-147 [facility] Comment on above: Performed By: #### D DIMR, TNIH, CBC, COMPH #### [facility] [address] [place] [address] 92252 Urea nitrogen [Mass/Vol] 10 mg/dL Normal 7-25 [facility] Comment on above: Performed By: #### D DIMR, TNIH, CBC, COMPH #### [facility] [address] [place] [address] D-DIMERon 11-01-2020 D-DIMER 214.00 ng/mL FEU Normal <=682 [facility] Comment on above: Result Comment: This [...] #### D DIMR, TNIH, CBC, COMPH #### [facility] [address] [place] [address] TROPONIN, HIGH SENSITIVITYon 11-01-2020 TROPONIN, HIGH SENSITIVITY <0.03 Normal 0.00-0.06 [facility] Comment on above: Result Comment: RISK STRATIFICATION: Low risk 0.00-0.06 Intermediate risk 0.07-<0.1 High risk 0.1-0.6 Suggestive of AL >.6 Performed By: #### D DIMR, TNIH, CBC, COMPH #### [facility] [address] [place] [address] Xray, Chest 2 viewson 2020 Xray, Chest 2 views TWO VIEWS OF THE CHEST CLINICAL HISTORY: Chest pain, unspecified COMPARISON: None. FINDINGS: The cardiac silhouette and mediastinal contours are within normal limits. The lungs are clear. There is no pleural effusion or pneumothorax. IMPRESSION: No acute findings. Normal [facility] Comment on above: Order Comment: Chest pain, unspecified COVID-19, MOLECULARon 2020 SARS-COV-2 (DIASORIN) Not Detected Normal Not Detected [facility] Comment on above: Order Comment: : Ayleen l Swab COVID/Flu Lab Tests (OP in UTM/Dry) Result Comment: This test was performed under the FDA's Emergency Use Authorization (EUA). Testing was performed using the Simplexa SARS-CoV-2 RT-PCR assay ([employer] (IMMI)) on the [employer] MDX platform. This test has not been approved for use in asymptomatic patients and its performance in this patient population has not been evaluated. Negative results do not rule out the presence of SARS-CoV-2/COVID-19. Fact sheets for this EUA can be found at the following links: For Healthcare Providers: https://www.fda.gov/media/671793/download For Patients: https://www.fda.gov/media/604787/download Performed By: #### L [id number] #### [facility] [address] [place], [place] [address] Zen Kwon M.D. [id number] Vital Signs Date Time Vital Sign Value Performing Clinician Facility 01-01-2023 11:10-0400 Body height 160.02 cm Moni Cain Other [facility] Other 01-01-2023 11:10-0400 Body mass index (BMI) [Ratio] 33.65 kg/m2 Moni Cain Other [facility] Other 01-01-2023 11:10-0400 Body temperature 98.2 [degF] Moni aCin Other [facility] Other 01-01-2023 11:10-0400 Body weight 86.18 kg Moni Cain Other [facility] Other 01-01-2023 11:10-0400 Diastolic blood pressure 68 mm[Hg] Moni Cain Other [facility] Other 01-01-2023 11:10-0400 Respiratory rate 18 /min Moni Cain Other [facility] Other 01-01-2023 11:10-0400 SaO2% (BldA) [Mass fraction] 96 % Moni Cain Other [facility] Other 01-01-2023 11:10-0400 Systolic blood pressure 125 mm[Hg] Moni Cain Other [facility] Other 10-31-2022 18:10-0400 Body height 160.02 cm Kamala Parker Other [facility] Other 10-31-2022 18:10-0400 Body mass index (BMI) [Ratio] 34.5 kg/m2 Kamala Elena Other [facility] Other 10-31-2022 18:10-0400 Body temperature 98.1 [degF] Kamala Elena Other [facility] Other 10-31-2022 18:10-0400 Body weight 88.36 kg Kamala Elena Other [facility] Other 10-31-2022 18:10-0400 Diastolic blood pressure 57 mm[Hg] Kamala Parker Other [facility] Other 10-31-2022 18:10-0400 Respiratory rate 18 /min Kamalarhona Parker Other [facility] Other 10-31-2022 18:10-0400 SaO2% (BldA) [Mass fraction] 99 % Kamalarhona Parker Other [facility] Other 10-31-2022 18:10-0400 Systolic blood pressure 101 mm[Hg] Kamala Parker Other [facility] Other 05-22-2022 14:42-0500 Body height 157.5 cm Sidra Joseph PA-C Work Phone: [facility] 05-22-2022 14:42-0500 Body mass index (BMI) [Ratio] 36.69 kg/m2 Sidra Joseph PA-C Work Phone: [facility] 05-22-2022 14:42-0500 Body weight 90.99 kg Sidra Joseph PA-C Work Phone: [facility] 05-22-2022 14:42-0500 Diastolic blood pressure 61 mm[Hg] Sidra Joseph PA-C Work Phone: [facility] 05-22-2022 14:42-0500 Heart rate 74 /min Sidra Joseph PA-C Work Phone: [facility] 05-22-2022 14:42-0500 Systolic blood pressure 115 mm[Hg] Sidra Joseph PA-C Work Phone: [facility] 05-01-2022 13:16-0500 Body height 157.5 cm Sidra Joseph PA-C Work Phone: [facility] 05-01-2022 13:16-0500 Body mass index (BMI) [Ratio] 36.03 kg/m2 Sidra Joseph PA-C Work Phone: [facility] 05-01-2022 13:16-0500 Body weight 89.36 kg Sidra Joseph PA-C Work Phone: [facility] 05-01-2022 13:16-0500 Diastolic blood pressure 84 mm[Hg] Sidra Joseph PA-C Work Phone: [facility] 05-01-2022 13:16-0500 Heart rate 73 /min Sidra Joseph PA-C Work Phone: [facility] 05-01-2022 13:16-0500 Systolic blood pressure 114 mm[Hg] Sidra Joseph PA-C Work Phone: [facility] 07-05-2021 14:01-0500 Body height 157.5 cm Claudio Price PA-C Work Phone: [facility] Comment on above: per pt. 07-05-2021 14:01-0500 Body mass index (BMI) [Ratio] 34.75 kg/m2 Claudio Price PA-C Work Phone: [facility] 07-05-2021 14:01-0500 Body temperature 98.49 [degF] Claudio Price PA-C Work Phone: [facility] 07-05-2021 14:01-0500 Body weight 86.18 kg Claudio Price PA-C Work Phone: [facility] Comment on above: per pt. 07-05-2021 14:01-0500 Diastolic blood pressure 72 mm[Hg] Claudio Price PA-C Work Phone: [facility] 07-05-2021 14:01-0500 Heart rate 68 /min lCaudio Price PA-C Work Phone: [facility] 07-05-2021 14:01-0500 SaO2% (BldA) [Mass fraction] 97 % Claudio Price PA-C Work Phone: [facility] 07-05-2021 14:01-0500 Systolic blood pressure 110 mm[Hg] Claudio Price PA-C Work Phone: [facility] 06-26-2021 11:02-0500 Body height 157.5 cm Sara Bernens PA-C Work Phone: [facility] 06-26-2021 11:02-0500 Body mass index (BMI) [Ratio] 34.75 kg/m2 Sara Bernens PA-C Work Phone: [facility] 06-26-2021 11:02-0500 Body temperature 98.49 [degF] Sara Bernens PA-C Work Phone: [facility] 06-26-2021 11:02-0500 Body weight 86.18 kg Sara Bernens PA-C Work Phone: [facility] 06-26-2021 11:02-0500 Diastolic blood pressure 76 mm[Hg] Sara Bernens PA-C Work Phone: [facility] 06-26-2021 11:02-0500 Heart rate 82 /min Sara Bernens PA-C Work Phone: [facility] 06-26-2021 11:02-0500 Respiratory rate 16 /min Sara Bernens PA-C Work Phone: [facility] 06-26-2021 11:02-0500 Systolic blood pressure 122 mm[Hg] Sara Marques PA-C Work Phone: [facility] Encounters Encounter Date Encounter Type Care Provider Facility Start: 10-29-2023 End: 10-29-2023 ambulatory GWENDOLYN LU Not Available Start: 07-29-2023 End: 07-29-2023 ambulatory ERICKA TOBIAS Not Available Start: 03-25-2023 End: 03-25-2023 ambulatory GWENDOLYN LU Not Available Start: 01-01-2023 End: 01-01-2023 ambulatory Moni Cain Other [facility] Other Start: 01-01-2023 Office outpatient vi sit 15 minutes Moni Cain [facility] Start: 10-31-2022 End: 10-31-2022 ambulatory Kamala Parker Other [facility] Other Start: 10-31-2022 Office outpatient ne w 20 minutes Kamala Parker [facility] Start: 06-19-2022 End: 06-19-2022 ambulatory PHYSICIAN [facility] Start: 05-22-2022 End: 05-22-2022 ambulatory SIDRA JOSEPH [facility] Start: 05-22-2022 End: 05-22-2022 Patient encounter procedure Sidra Joseph PA-C Work Phone: [facility] Comment on above: Encounter for IUD in sertion (Primary Dx); Negative test; Routine screening for STI (sexually transmitted infection) Start: 05-01-2022 End: 05-01-2022 ambulatory SIDRA JOSEPH [facility] Start: 05-01-2022 End: 05-01-2022 Office outpatient new 20 minutes Sidra Joseph PA-C Work Phone: [facility] Comment on above: Pelvic pain in femal e (Primary Dx); Abnormal uterine bleeding (AUB); PCOS (polycystic ovarian syndrome) Start: 04-03-2022 End: 04-07-2022 Emergency department patient visit PHYSICIAN NO [facility] Start: 04-03-2022 End: 04-03-2022 Emergency department patient visit PHYSICIAN NO [facility] Start: 11-12-2021 End: 11-13-2021 ambulatory PHYSICIAN NO [facility] Start: 07-24-2021 ambulatory PHYSICIAN NO [facility] Start: 07-05-2021 End: 07-05-2021 ambulatory PHYSICIAN NO [facility] Start: 07-05-2021 End: 07-05-2021 Office outpatient visit 10 minutes Claudio Price PA-C Work Phone: [facility] Comment on above: Rash (Primary Dx); Fungal infection Start: 06-26-2021 End: 06-26-2021 ambulatory PHYSICIAN NO [facility] Start: 06-26-2021 End: 06-26-2021 Office outpatient visit 15 minutes Sara Marques PA-C Work Phone: [facility] Comment on above: Pityriasis rosea (Pr imary Dx); Achilles tendinitis, unspecified laterality Start: 02-23-2021 End: 02-23-2021 Clinical Support Shanell Rosas RN [facility] Comment on above: Need for vaccination (Primary Dx) Start: 02-10-2021 End: 02-10-2021 ambulatory COLETTE DE LA PAZ [facility] Start: 12-19-2020 End: 12-19-2020 ambulatory JANI SÁNCHEZ Facility:H1 Start: 12-05-2020 End: 12-06-[address] ZAN MCCLENDON Facility:[facility]1 Start: 11-01-2020 ambulatory KILLIAN CURIEL Facilit y:[facility] Start: 11-01-2020 End: 11-02-2020 ambulatory KILLIAN CURIEL Facility:[facility] Start: 08-27-2020 End: 08-27-2020 [facility] Procedures Date Procedure Procedure Detail Performing Clinician Start: 05-22-2022 Iadna chlamydia trachomatis amplified probe tq Sidra Joseph PA-C Work Phone: Start: 05-22-2022 Urine test visual color cmprsn meths Sidra Joseph PA-C Work Phone: Plan of Treatment Date Care Activity Detail Author Start: 05-22-2023 Screening for Chlamy ash trachomatis Chlamydia Screening [facility] Start: 06-19-2022 End: 06-19-2022 Patient encounter procedure 06/19/2022 Office Visit Obstetrics and Gynecology Sidra Joseph PA-C [address] [place] [address] [place] [address] [facility] Obstetrics and Gynecology Start: 05-22-2022 End: 05-22-2022 Patient encounter procedure 05/22/2022 Procedure visit Obstetrics and Gynecology Sidra Joseph PA-C [address] [place] [address] [place] [address] [facility] Obstetrics [facility] Gynecology Start: 01-17-2022 Influenza vaccination Sequenti al Influenza Vaccine (#1) [facility] Start: 11-04-2021 Tetanus vaccination Tetanus: Every 1 0yrs [facility] Start: 02-24-2021 Depression screening using PHQ-9 (Patient Health Questionnaire 9) score Depression Screening (PHQ-2/9) [facility] Comment on above: Postponed from 07/16 (Patient Refused) Start: 01-23-2021 COVID-19 Vaccine (3 - Booster for Moderna series) COVID-19 Vaccine (3 - Booster for Moderna series) [facility] Start: 10-18-2020 COVID-19 Vaccine (3 - Booster for Moderna series) COVID-19 Vaccine (3 - Booster for Moderna series) [facility] Start: 2017 Hepatitis C screening Hepatitis C Sc reening [facility] Start: 2014 HIV screening HIV Screening [facility] Start: 2011 Depression screening using PHQ-9 (Patient Health Questionnaire 9) score Depression Screening (PHQ-2/9) [facility] Start: 2002 History and physical examination, annual for health maintenance Wellness Visit [facility] Start: 1999 Screening for Chlamy ash trachomatis Chlamydia Screening [facility] Start: 1999 Screening for malign ant neoplasm of cervix Pap Smear [facility] Chlamydia trachomati s rRNA assay [facility] Work Phone: Comment on above: Ordered: 05/22/2022 Neisseria gonorrhoea e nucleic acid detection [facility] Comment on above: Ordered: 05/22/2022 Trichomonas vaginali s Amplified RNA [facility] Comment on above: Ordered: 05/22/2022 Immunizations Immunization Date Immunization Notes Care Provider Fa cility 02-23-2021 influenza, injectabl e, quadrivalent, preservative free Shanell Rosas RN [facility] 02-23-2021 flu vacc [id number] 6 mos up,PF, (FLUZONE QUAD) injection Shanell Rosas RN [facility] Work Phone: 03-06-2020 influenza, injectabl e, quadrivalent, preservative free Shanell Rosas RN [facility] 11-04-2017 meningococcal B vacc ine, recombinant, OMV, adjuvanted Shanell Rosas RN [facility] 12-26-2016 meningococcal oligosaccharide (groups A, C, Y and W-135) diphtheria toxoid conjugate vaccine (MCV4O) Shanell Rosas RN [facility] 05-14-2012 hepatitis A vaccine, pediatric/adolescent dosage, 2 dose schedule Shanell Rosas RN [facility] 05-14-2012 HPV, unspecified formulation Shanell Rosas RN [facility] 01-03-2012 human papilloma viru s vaccine, quadrivalent Shanell Rosas RN [facility] 01-03-2012 varicella virus vaccine Shanell callejas RN [facility] 11-05-2011 hepatitis A vaccine, pediatric/adolescent dosage, 2 dose schedule Shanell Rosas RN [facility] 11-05-2011 human papilloma viru s vaccine, quadrivalent Shanell Rosas RN [facility] 11-05-2011 tetanus toxoid, redu cliff diphtheria toxoid, and acellular pertussis vaccine, adsorbed Shanell Rosas RN [facility] 08-02-2004 diphtheria, tetanus toxoids and acellular pertussis vaccine Shanell Rosas RN [facility] 08-02-2004 measles, mumps and rubella virus vaccine Shanell Rosas RN [facility] 08-02-2004 poliovirus vaccine, inactivated Shanell Rosas RN [facility] 01-15-2001 pneumococcal conjuga te vaccine, 7 valent Shanell Rosas RN [facility] 12-16-2000 diphtheria, tetanus toxoids and acellular pertussis vaccine, unspecified formulation Shanell Rosas RN [facility] 11-13-2000 diphtheria, tetanus toxoids and acellular pertussis vaccine, unspecified formulation Shanell Rosas RN [facility] 11-13-2000 pneumococcal conjuga te vaccine, 7 valent Shanell Rosas RN [facility] 08-07-2000 haemophilus influenz ae type b vaccine, PRP-OMP conjugate Shanell Rosas RN [facility] 08-07-2000 measles, mumps and rubella virus vaccine Shanell Rosas RN [facility] 08-07-2000 poliovirus vaccine, inactivated Shanell Rosas RN [facility] 08-07-2000 varicella virus vaccine Shanell callejas RN [facility] 07-04-2000 pneumococcal conjuga te vaccine, 7 valent Shanell Rosas RN [facility] 06-26-2000 influenza virus vacc ine, whole virus Shanell Rosas RN [facility] 05-15-2000 diphtheria, tetanus toxoids and acellular pertussis vaccine, unspecified formulation Shanell Rosas RN [facility] 05-15-2000 haemophilus influenz ae type b vaccine, PRP-OMP conjugate Shanell Rosas RN [facility] 05-15-2000 influenza virus vacc ine, whole virus Shanell Rosas RN [facility] 02-21-2000 diphtheria, tetanus toxoids and acellular pertussis vaccine, unspecified formulation Shanell Rosas RN [facility] 02-21-2000 haemophilus influenz ae type b conjugate and Hepatitis B vaccine Shanell Rosas RN [facility] 02-21-2000 poliovirus vaccine, inactivated Shanell Rosas RN [facility] 1999 diphtheria, tetanus toxoids and acellular pertussis vaccine, unspecified formulation Shanell Rosas RN [facility] 1999 haemophilus influenz ae type b conjugate and Hepatitis B vaccine Shanell Rosas RN [facility] 1999 poliovirus vaccine, inactivated Shanell Rosas RN [facility] 1999 hepatitis B vaccine, pediatric or pediatric/adolescent dosage Shanell Rosas RN [facility] Payers Date Payer Category Payer Unknown [employer] PPO [id number] 2016-Present [phone] [address] [place] [address] [id number] 2016 Unknown [employer] PPO [id number] 2016-Present [phone] [address] [place] [address] [id number] 1999 Unknown [id number] [id number] 1999 Unknown [id number] 2.16.840.1.072268.3.579.2.593 1999 Unknown [id number] 2.16.840.1.119512.3.579.2.593 1999 Unknown [id number] 2.16.840.1.333326.3.579.2.903 1999 Unknown [id number] 2.16.840.1.553013.3.579.2.903 1999 Unknown [id number] 2.16.840.1.925950.3.579.2.903 1999 Unknown [id number] 2.16.840.1.774811.3.579.2.903 1999 Unknown [id number] 2.16.840.1.585581.3.579.2.903 1999 Unknown [id number] 2.16.840.1.348685.3.579.2.903 1999 Unknown [id number] 2.16.840.1.682291.3.579.2.903 1999 Unknown [id number] 2.16.840.1.191739.3.579.2.903 1999 Unknown [id number] 2.16.840.1.323779.3.579.2.903 1999 Unknown [id number] 2.16.840.1.616755.3.579.2.903 1999 Unknown [id number] 2.16.840.1.901044.3.579.2.903 1999 Unknown [id number] 2.16.840.1.746950.3.579.2.1259 1999 Unknown [id number] 2.16.840.1.564398.3.579.2.9 1999 Unknown [id number] 2.16.840.1.052755.3.579.2.1259 1959 Unknown [id number] Social History Date Type Detail Facility Start: 02-10-2021 End: 05-01-2022 Tobacco smoking status DCIS Never smoked tobacco [facility] Start: 02-10-2021 End: 05-01-2022 Tobacco use and exposure Smokeless tobacco non-user [facility] Start: 1999 Sex Assigned At Not on file [facility] Start: 04-21-2022 End: 05-18-2022 Exposure to SARS-CoV-2 (event) Not sure [facility] Start: 07-05-2021 End: 05-22-2022 Alcohol intake Current drinker of alcohol (finding) [facility] Start: 07-05-2021 History SDOH Alcohol Comment weekends [facility] Sex Assigned At Sex Assigned At [facility] Other Clinical Notes 06-26-2021 to 01-01-2023 Note [...] Pt understood and agreed to tx plan. [facility] Other 06-15-2023 Evaluation note* Encounter Date Diagnosis [...] nose. Patient verbalized understanding of treatment plan. 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 -Cyrus Shannon is a who presents for IUD [...] Urine 04/03/2022 Cloudy (A) Clear Final Specific [place] 04/03/2022 1.021 1.005 - 1.025 Final pH, [...] pain. 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 Chief Complaint Patient presents with Consult New Patient. 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 Symptoms got worse and went to ED [...] Urine 04/03/2022 Cloudy (A) Clear Final Specific [place] 04/03/2022 1.021 1.005 - 1.025 Final pH, [...] insertion. Sidra Joseph PA-C documented in this [id number] Instructions* Patient Instructions* Claudio Price PA-C - [...] not jeffries in the sun, sothey are first sampler than the skin around them. Some spots [...] Log into your personal health record on [email or web address] and enter K490 in the Education box to learn more about Tinea Versicolor: Care Instructions. Current as of: July 19, 2020 Content Version: 13.1 [email or web address]. Care instructions adapted under license by your healthcare professional. If you have questions about a medical condition or this instruction, always ask your healthcare professional. [email or web address] disclaims any warranty or liability for your use of this information. documented in this [id number] History of Present illness Narrative* Claudio Price PA-C - 07/05/2021 2:12 PM EST Images from the original note were not included. PATIENT NAME: Audra Shannon [facility] [address] [place] [id number] : 2000 DATE OF VISIT: 07/05/2021 #: [...] medications for this visit. documented in this [id number] History of Present illness Narrative* Sara Marques PA-C - 06/26/2021 12:06 PM EST PATIENT NAME: Audra Shannon [facility] [address] [facility] [id number] : 2000 DATE OF VISIT: 06/26/2021 #: [...] General: Skin is warm and dry. Comments: [place] colored, slightly raised, scaling patches over anterior [...] medications for this visit. documented in this [id number] Instructions* Patient Instructions* Sraa Marques PA-C - 06/26/2021 11:33 AM EST Images from the original note were not included. Pityriasis Rosea: Care Instructions Your Care Instructions Pityriasis rosea (say mka-mp-ZJ-uh-rosy ADELINE-zee-uh ) is a common skin rash. [...] rash more visible and itchy. Use an waaf-meo-vvlmcdq 1% hydrocortisone cream for small itchy areas. [...] Log into your personal health record on [email or web address] and enter S327 in the Education box to learn more about Pityriasis Rosea: Care Instructions. Current as of: July 19, 2020 Content Version: 13.1 [email or web address]. Care instructions adapted under license by your healthcare professional. If you have questions about a medical condition or this instruction, always ask your healthcare professional. [email or web address] disclaims any warranty or liability for your [...] Log into your personal health record on [email or web address] and enter M689 in the Education box to learn more about Achilles Tendon: Exercises. Current as of: November 16, 2020 Content Version: 13.1 [id number] [email or web address]. Care instructions adapted under license by your healthcare professional. If you have questions about a medical condition or this instruction, always ask your healthcare professional. [email or web address] disclaims any warranty or liability for your use of this information. [facility]* Diagnosis Need for vaccination- Primary Need for prophylactic vaccination and inoculation against unspecified single disease [facility] Diagnosis Pityriasis rosea- Primary Achilles tendinitis, unspecified laterality [facility] Diagnosis Rash- Primary Rash and other nonspecific skin eruption Fungal infection Other and unspecified mycoses [facility]* Diagnosis Pelvic pain in female- Primary [...] for venereal disease [facility]* Diagnosis Encounter for IUD insertion- Primary Insertion of intrauterine contraceptive device Negative test examination or test, negative result Routine screening for STI (sexually transmitted infection) Screening examination for venereal disease [facility] Narrative - Reported* Type Description Date Medical History PCOS Medical History anxiety Surgical History cleft palate Surgical History PE tubes Hospitalization History see surgical [facility] Other History general Narrative - Reported* Type Description Date Medical History PCOS Medical History anxiety Surgical History cleft palate Surgical History PE tubes Surgical History wisdom teeth Hospitalization History see surgical hx [facility] Other Summary Purpose Family History No Family History Records FoundNo Family History Records FoundNo Family History Records FoundNo Family History Records FoundNo Family History Records FoundNo Family History Records FoundNo Family History Records Found Advance Directives No Advanced Directives Records FoundDocuments on File Type Date Recorded Patient Vp Security Expl anation Advance Directives and Living Will Documents on File Type Date Recorded Patient Vp Security Expl anation Advance Directives and Living Will Reason for Referral Specialty Diagnoses / Procedures Referred By Cindy henderson Referred To Contact Dermatology Diagnoses Claudio Neves PA-C [address] [place] [address] [place] [address] Kayleigh Pickard DO [address] [place] [address] Referral ID Status Reason Start Date Expiration Date Visits Requested Visits Authorized [id number] Authorized Specialty Services Required/Pat ient's Best Interest 08/02/2021 08/02/2022 1 1 Additional Source Comments INFORMATION SOURCE (unrecogn ized section and content) DATE CREATED AUTHOR 08/27/2020 [facility] DATE CREATED AUTHOR AUTHOR'S ORGANIZ ATION 11/23/[address] [facility] DATE CREATED AUTHOR AUTHOR'S ORGANIZ ATION 12/23/2020 [facility] DATE CREATED AUTHOR AUTHOR'S ORGANIZ ATION 11/12/2021 [facility] DATE CREATED AUTHOR AUTHOR'S ORGANIZ ATION 05/08/2022 [facility] DATE CREATED AUTHOR AUTHOR'S ORGANIZ ATION 06/20/2022 [facility] DATE CREATED AUTHOR AUTHOR'S ORGANIZ ATION 10/31/2023 [facility] d[facility] EPIC Reason for Visit (unrecogniz [...] Patient. 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 Symptoms got worse and went to ED [...] Care Teams (unrecognized sec tion and content) Recycling Tech Relationship Specialty Start Date End Date No, Physician [facility] PCP - General 03/28/20 Recycling Tech Relationship Specialty Start Date End Date No, Physician [facility] PCP - General 03/28/20 Recycling Tech Relationship Specialty Start Date End Date No, Physician [facility] PCP - General 03/28/20 Recycling Tech Relationship Specialty Start Date End Date No, Physician [facility] PCP - General 03/28/20 Claudio Price PA-C [address] [place] [address] [place] [address] PCP - ALEX Attributed Provider - [employer] 01/18/16 05/18/50 Recycling Tech Relationship Specialty Start Date End Date No, Physician [facility] PCP - General 03/28/20 Claudio Price PA-C [address] [place] [address] [place] [address] PCP - ALEX Attributed Provider - [employer] 01/18/16 05/18/50 Recycling Tech Relationship Specialty Start Date End Date No, Physician [facility] PCP - General 03/28/20 Claudio Price PA-C [address] [place] [address] [place] [address] PCP - ALEX Attributed Provider - MMO [...] BE BASED ON THE PRIMARY CLINICAL RECORDS. [facility]. provides no warranty or guarantee of the accuracy or completeness of information in this document.
--- NOTE | 2024-02-03 15:16 | XR_ITS ---
The [address] [address] Patient Name: AUDAR CRUZ MRN: [id number] date: 2000 Sex: F Assigned Patient Location: [facility] Current Patient Location: [facility] Accession/Order Number: [id number] Exam Date: 02/03/2024 15:10 Report Date: 02/03/2024 15:24 At the request of: JASIEL OAKES Procedure: XR chest 2V EXAM: XR chest 2V HISTORY: Preop exam COMPARISON: 04/28/2008 TECHNIQUE: Upright PA and lateral chest x-ray FINDINGS: The heart is not enlarged and the vasculature is not distended. No acute infiltrate, effusion or pneumothorax is identified. The osseous structures are grossly intact. XR/XR chest 2V IMPRESSION: No acute infiltrate or evidence of cardiac decompensation. Expected aging changes are noted, and the overall appearance of the chest is otherwise unchanged. Electronically authenticated by: FEROZ DENNIS Date: 02/03/2024 15:24
[2024-02-03 15:27] LABS: Basophils Absolute Auto 0.1 10^3/uL (0.0-0.1); Basophils Percent Auto 0.4 % (0.2-2.0); Eosinophils Absolute Auto 0.2 10^3/uL (0.0-0.7); Eosinophils Percent Auto 1.4 % (0.9-7.0); Hematocrit 40.5 % (36.0-48.0); Hemoglobin 13.6 g/dL (12.0-16.0); Immature Granulocytes Abs Auto 0.04 10^3/uL (0.00-0.03); Immature Granulocytes Pct Auto 0.3 % (0.0-0.5); Lymphocytes Absolute Auto 2.9 10^3/uL (1.2-3.8); Lymphocytes Percent Auto 21.1 % (20.5-60.0); Mean Corpuscular HGB Conc 33.6 g/dL (29.9-35.2); Mean Corpuscular Hemoglobin 30.2 pg (26.7-34.0); Mean Platelet Volume 9.8 fL (9.5-13.5); Monocytes Absolute Auto 0.8 10^3/uL (0.3-0.8); Monocytes Percent Auto 5.6 % (1.7-12.0); Neutrophils Absolute Auto 9.8 10^3/uL (1.4-6.5); Neutrophils Percent Auto 71.2 % (43.0-75.0); Platelet Count 387 10^3/uL (150-450); Red Cell Distribution Width 12.2 % (11.0-15.0); White Blood Count 13.7 10^3/uL (4.0-11.0)
[2024-02-03 15:53] LABS: INR 0.95; Partial Thromboplastin Time 29.6 sec (22.3-36.2); Prothrombin Time 10.1 sec (9.0-11.6)
[2024-02-03 16:04] LABS: BUN Creatinine Ratio 15.7; Calcium 8.9 mg/dL (8.5-10.1); Carbon Dioxide 30.9 mmol/L (21.0-32.0); Chloride 102 mmol/L (98-107); Estimated GFR (African America >60 (>=60); Estimated GFR (Non-African Ame >60 (>=60); Glucose 122 mg/dL (74-106); Potassium 3.9 mmol/L (3.5-5.1); Sodium 136 mmol/L (136-145)
== END 2024-02-03 14:26 | disposition home or self-care (01) ==
LOC: PST 14:26
PROVIDERS: PCP Family Medicine; Visit Provider Otolaryngology
DX: Z01.810 Encounter for preprocedural cardiovascular examination (principal); Z01.812 Encounter for preprocedural laboratory examination; H69.93 Unspecified Eustachian tube disorder, bilateral
CPT/HCPCS: 71046; 80048; 85025; 85610; 85730; 93005

== ENCOUNTER 2024-02-10 06:03 | Day surgery (SDC) | payer OTHER, SELFPAY ==
[2024-02-03 14:59] VITALS: BP 126/73; PULSE 87; TEMP 36.4; O2SAT 97; BMI 37.5
[2024-02-10] VITALS (10 sets, daily range): BP systolic 107–129; BP diastolic 60–77; PULSE 54–88; TEMP 36.6; O2SAT 91–100; BMI 37.0
--- NOTE | 2024-02-10 | OP_ITS ---
OPERATION DATE: 02/10/2024 PREOPERATIVE DIAGNOSIS: Eustachian tube dysfunction. POSTOPERATIVE DIAGNOSIS: Eustachian tube dysfunction and Darryl sequence. PROCEDURE: Bilateral myringotomy and tube with microdissection, placement of T- tubes. ANESTHESIA: General mask. COMPLICATIONS: None. FINDINGS: Bilateral tympanic membrane retraction reduction. 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 She also has a life long history of chronic eustachian tube dysfunction, and presented with severe bilateral tympanic membrane retraction. Patient was referred to Anesthesia preoperatively to evaluate her airway and was cleared for surgery. PROCEDURE: Patient identified in the holding area and taken back to the OR where he was placed in the supine position. After induction of general anesthesia by mask, the right ear was approached with the otomicroscope. An anterior radial myringotomy was performed. A modified Pablo?s T-tube was folded, inserted in the myringotomy and opened in the middle ear using microdissection. Attention was then turned to the left ear and the same procedure performed. Patient did not have any oxygen saturations below 96% during the course of the procedure, although she did have brief apneic episodes when her head was turned to the left or right. These were managed by returning the head to a neutral position. Patient was then awakened and taken to the recovery room in good condition. CLARISSA
--- OUTSIDE RECORDS SUMMARY | 2024-02-10 06:06 | XMS_ITS | CCD ---
Author Organization [facility] Care Team Providers Care Bioinformaticist Name Role Phone JCFILIBERTO NICKOLAS Referring Unavailable [...] Provider Unavailabl e Claudio Price PA-C Unavailable [phone] HELDER ALEXANDER Referring Unava ilable NO, PHYSICIAN [...] LU Attending Unavailable GWENDOLYN LU Attending Unavailable JASIEL OAKES Attending Unavailable BRANDT ROBERTS Attending Unavailable Allergies Allergy Classification Reported Allergen(s) Allergy Type Date of Onset Reaction(s) Facility (6 sources) Non-steroidal anti-inflammatory agent; Translations: [NSAIDS (NON-STEROIDAL ANTI-INFLAMMATORY DRUG)] Propensity to adverse reactions to drug 02-10-2021 Anaphylaxis [facility] (9 sources) Non-steroidal anti-inflammatory agent Propensity to adverse reactions to drug 02-10-2021 Anaphylaxis [facility] Medications Current Medications Medication Drug Class(es) Dates Sig (Normalized) Sig (Original) [id number] 200 actuat albuterol 0.09 mg/actuat metered dose [...] Start: 03-07-2016 take 1 capsule by mo ut three times daily as needed Tessalon Perles [...] 30 g 0 07/05/2021 05/01/2022 Discontinued levonorgestrel 0.225603 mg/hr intrauterine system (11 sources) Progestin, Progestin-containi [...] (COVID-19) RNA MODESTA+probe Ql (Unsp spec) Negative [employer] Other COVID/FLU RT-PCR Negative [facility] [employer] Other COVID Quick Testingon 2022 Result Negative [employer] Other Quick Strepon 10-31-2022 S. pyogenes Org specific cx Ql (Throat) Negative [employer] Other Quick Strep [employer] Other Chlamydia/Gonorrhoeae Amplif ied RNAOrdered By: Tiffany Abbasi on 05-23-2022 C. trachomatis rRNA MODESTA+probe Ql (Vag fld) Negative Negative [facility] N. gonorrhoeae rRNA MODESTA+probe Ql (Vag fld) Negative Negative [facility] No Panel InformationOrdered By: Tiffany Abbasi on 05-23-2022 Interpretation and review of laboratory results Normal [facility] [place] Trichomonas vaginalis Amplif ied RNAon 05-23-2022 T. vaginalis rRNA MODESTA+probe Ql (Vag fld) Negative Negative [facility] HCG ( test) Ql (U)O rdered By: Erin Cottrell on 05-22-2022 Internal Control Pass [facility] Interpretation and review of laboratory results Normal [facility] [place] Laboratory - Chemistry and C hemistry - challengeOrdered By: Erin Cottrell on 05-22-2022 HCG ( test) Ql (U) Negative Negative [facility] PELVIC TRANSABDOMINAL AND TRANSVAGINAL WITH [...] DPR/cdr Workstation ID: [id number] Dictated by: KILLIAN MEAN on FriApr 03, 2022 2:29:20 PM EST Transcribed by: HALIMA SANDOVAL on FriApr 03, 2022 2:45:11 PM EST Finalized by: KILLIAN MENA on FriApr 03, 2022 2:48:51 PM EST Normal [facility] Comment on above: Order Comment: Injur y/Trauma [...] FriNov 12, 2021 11:20:08 AM EDT Normal [facility] Comment on above: Order Comment: Injur y/Trauma or Illness?:Illness/Other How long have you had these symptoms (acute/chronic)?:Acute Reason for exam?:cough sob History of cancer?:no Surgeries, chemotherapy, or radiation?:no Type of Exam?:Initial Additional signs and symptoms?:tested + for covid last week COVID-19, MOLECULARon 2020 INTERNAL CONTROL (DHALIWAL ID) Pass Normal [facility] SARS-CoV-2 (COVID-19) Ab IA Ql Not detected Normal Not Detected [facility] PAP ACOG PANEL 3: 20 to on 12-22-2020 . . Normal [facility] Comment on above: Result Comment: Perf ormed at: WB Performed By: #### [id number] #### [facility] [address], [place] [address] Danae Snow Age Gdln ACOG Testing - Normal [facility] Comment on above: Performed By: #### [id number] #### [facility] [address], [place] [address] Danae Snow Chlamydia, Nuc. Acid Amp Negative Normal Negative [facility] Comment on above: Result Comment: Perf ormed at: =G Performed By: #### [id number] #### [facility] [address] [place] [address] Danae Junioren DIAGNOSIS: Comment Normal [facility] Comment on above: Result Comment: NEGA TIVE FOR INTRAEPITHELIAL LESION OR MALIGNANCY. CELLULAR CHANGES ASSOCIATED WITH INFLAMMATION ARE PRESENT. THIS SPECIMEN WAS RESCREENED PART OF OUR CARD DECORATOR PROGRAM. Performed at: WB Performed By: #### [id number] #### [facility] [address] [place] [address] Danae Snow Gonococcus, Nuc. Acid Amp Negative Normal Negative [facility] Comment on above: Result Comment: Perf ormed at: =G Performed By: #### [id number] #### [facility] [address] [place] [address] Danae Junioren Methodology: Comment Normal [facility] Comment on above: Result Comment: This liquid based ThinPrep(R) pap test was screened with the use of an image guided system. Performed at: WB Performed By: #### [id number] #### [facility] [address] [place] [address] Danae Snow Note: Comment Normal [facility] Comment on above: Result Comment: The Pap smear is a screening test designed to aid in the detection of premalignant and malignant conditions of the uterine cervix. It is not a diagnostic procedure and should not be used as the sole means of detecting cervical cancer. Both false-positive and false-negative reports do occur. . Performed at: WB Performed By: #### [id number] #### [facility] [address] [place] [address] Danae Snow Performed by: Comment Normal [facility] Comment on above: Result Comment: Santos Vuong, Advertising Layout Worker (ASCP) Performed at: WB Performed By: #### [id number] #### [facility] [address] [place] [address] Danae Snow QC reviewed by: Comment Normal [facility] Comment on above: Result Comment: Elijah Ann, Supervisory Advertising Layout Worker (ASCP) Performed at: WB Performed By: #### [id number] #### [facility] [address] [place] [address] Danae Snow Reflex Criteria: Comment Normal [facility] Comment on above: Result Comment: The HPV DNA reflex criteria were not met with this specimen result therefore, no HPV testing was performed. . Performed at: WB Performed By: #### [id number] #### [facility] [address] [address] Danae Snow Specimen adequacy: Comment Normal [facility] Comment on above: Result Comment: Sati sfactory for evaluation. Endocervical and/or squamous metaplastic cells (endocervical component) are present. Performed at: WB Performed By: #### [id number] #### [facility] [address] [place] [address] Danae Snow US SINGLE QUAD RT UPPERon [...] YOUSIF ARIAS Date: 2020-12-05 13:58 Normal [facility] CBCon 11-01-2020 Basophils (Bld) [#/Vol] 0.04 10*3/uL Normal <=0.2 [facility] [employer] Comment on above: Performed By: #### D DIMR, TNIH, CBC, COMPH #### [facility] [address] [place] [address] 85027 Basophils/100 WBC (Bld) 0.4 % Normal [facility] Comment on above: Performed By: #### D DIMR, TNIH, CBC, COMPH #### [facility] [address] [place] [address] 49348 Eosinophils (Bld) [#/Vol] 0.24 10*3/uL Normal <=0.60 [facility] Comment on above: Performed By: #### D DIMR, TNIH, CBC, COMPH #### [facility] [address] [place] [address] 45870 Eosinophils/100 WBC (Bld) 2.5 % Normal [facility] Comment on above: Performed By: #### D DIMR, TNIH, CBC, COMPH #### [facility] [address] [place] [address] 70847 Hematocrit (Bld) [Volume fraction] 40.3 % Normal 35.0-45.0 [facility] Comment on above: Performed By: #### D DIMR, TNIH, CBC, COMPH #### [facility] [address] [place] [address] 43524 Hemoglobin (Bld) [Mass/Vol] 13.1 g/dL Normal 11.8-15.5 [facility] Comment on above: Performed By: #### D DIMR, TNIH, CBC, COMPH #### [facility] [address] [place] [address] 17480 Immature granulocytes (Bld) [#/Vol] 0.02 10*3/uL Normal 0.00-0.10 [facility] Comment on above: Performed By: #### D DIMR, TNIH, CBC, COMPH #### [facility] [address] [place] [address] 33766 Immature granulocytes/100 WBC (Bld) 0.2 % Normal [facility] Comment on above: Performed By: #### D DIMR, TNIH, CBC, COMPH #### [facility] [address] [place] [address] 09472 Lymphocytes (Bld) [#/Vol] 2.71 10*3/uL Normal 1.00-4.50 [facility] Comment on above: Performed By: #### D DIMR, TNIH, CBC, COMPH #### [facility] [address] [place] [address] 00600 Lymphocytes/100 WBC (Bld) 28.1 % Normal [facility] Comment on above: Performed By: #### D DIMR, TNIH, CBC, COMPH #### [facility] [address] [place] [address] 05376 MCH (RBC) [Entitic mass] 27.9 pg Normal 27.0-34.0 [facility] Comment on above: Performed By: #### D DIMR, TNIH, CBC, COMPH #### [facility] [address] [place] [address] 09117 MCHC (RBC) [Mass/Vol] 32.5 g/dL Normal 31.0-36.0 [facility] Comment on above: Performed By: #### D DIMR, TNIH, CBC, COMPH #### [facility] [address] [place] [address] 92959 MCV (RBC) [Entitic vol] 85.9 fL Normal 81.0-100.0 [facility] Comment on above: Performed By: #### D DIMR, TNIH, CBC, COMPH #### [facility] [address] [place] [address] 81807 Monocytes (Bld) [#/Vol] 0.66 10*3/uL Normal 0.10-0.80 [facility] Comment on above: Performed By: #### D DIMR, TNIH, CBC, COMPH #### [facility] [address] [place] [address] 51403 MONOS 6.8 % Normal [facility] Comment on above: Performed By: #### D DIMR, TNIH, CBC, COMPH #### [facility] [address] [place] [address] 57530 Neutrophils (Bld) [#/Vol] 5.97 10*3/uL Normal 1.50-7.50 [facility] Comment on above: Performed By: #### D DIMR, TNIH, CBC, COMPH #### [facility] [address] [place] [address] 88763 Platelet mean volume (Bld) [Entitic vol] 9.8 fL Normal 8.5-13.0 [facility] Comment on above: Performed By: #### D DIMR, TNIH, CBC, COMPH #### [facility] [address] [place] [address] 01290 Platelets (Bld) [#/Vol] 362 10*3/uL Normal 150-400 [facility] Comment on above: Performed By: #### D DIMR, TNIH, CBC, COMPH #### [facility] [address] [place] [address] 33228 RBC (Bld) [#/Vol] 4.69 10*6/uL Normal 3.80-5.10 [facility] Comment on above: Performed By: #### D DIMR, TNIH, CBC, COMPH #### [facility] [address] [place] [address] 05895 RDW (STD DEVIATION) 43.9 fL Normal 38.0-48.0 [facility] Comment on above: Performed By: #### D DIMR, TNIH, CBC, COMPH #### [facility] [address] [place] [address] 52738 SEGS 62.0 % Normal [facility] Comment on above: Performed By: #### D DIMR, TNIH, CBC, COMPH #### [facility] [address] [place] [address] 76321 WBC (Bld) [#/Vol] 9.64 10*3/uL Normal 4.50-11.00 [facility] Comment on above: Performed By: #### D DIMR, TNIH, CBC, COMPH #### [facility] [address] [place] [address] 66911 COMPREHENSIVE METABOLIC PANE Felipe 11-01-2020 Albumin [Mass/Vol] 3.5 g/dL Normal 3.5-5.0 [facility] Comment on above: Performed By: #### D DIMR, TNIH, CBC, COMPH #### [facility] [address] [place] [address] 94109 ALP [Catalytic activity/Vol] 76 U/L Normal 34-115 [facility] Comment on above: Performed By: #### D DIMR, TNIH, CBC, COMPH #### [facility] [address] [place] [address] 20671 ALT [Catalytic activity/Vol] 25 U/L Normal 11-66 [facility] Comment on above: Performed By: #### D DIMR, TNIH, CBC, COMPH #### [facility] [address] [place] [address] 14152 AST [Catalytic activity/Vol] 29 U/L Normal 5-40 [facility] Comment on above: Performed By: #### D DIMR, TNIH, CBC, COMPH #### [facility] [address] [place] [address] 32049 Bilirubin [Mass/Vol] 0.4 mg/dL Normal 0.2-1.3 [facility] Comment on above: Result Comment: Prom acta (Eltrombopag) use may falsely elevate total bilirubin results. Performed By: #### D DIMR, TNIH, CBC, COMPH #### [facility] [address] [place] [address] 99248 Calcium [Mass/Vol] 9.1 mg/dL Normal 8.3-10.0 [facility] Comment on above: Performed By: #### D DIMR, TNIH, CBC, COMPH #### [facility] [address] [place] [address] Chloride [Moles/Vol] 102 mmol/L Normal 99-109 [facility] Comment on above: Performed By: #### D DIMR, TNIH, CBC, COMPH #### [facility] [address] [place] [address] CO2 [Moles/Vol] 23 mmol/L Normal 22-32 [facility] Comment on above: Performed By: #### D DIMR, TNIH, CBC, COMPH #### [facility] [address] [place] [address] Creatinine [Mass/Vol] 0.81 mg/dL Normal 0.55-1.02 [facility] Comment on above: Performed By: #### D DIMR, TNIH, CBC, COMPH #### [facility] [address] [place] [address] 49312 GFR >60.00 Normal >=60 [facility] Comment on above: Result Comment: Unit [...] #### D DIMR, TNIH, CBC, COMPH #### [facility] [address] [place] [address] GFR NON- >60.00 Normal >=60 [facility] Comment on above: Result Comment: Unit s [...] #### D DIMR, TNIH, CBC, COMPH #### [facility] [address] [place] [address] Glucose [Mass/Vol] 88 mg/dL Normal 65-110 [facility] Comment on above: Performed By: #### D DIMR, TNIH, CBC, COMPH #### [facility] [address] [place] [address] 35688 Potassium [Moles/Vol] 4.3 mmol/L Normal 3.6-5.0 [facility] Comment on above: Performed By: #### D DIMR, TNIH, CBC, COMPH #### [facility] [address] [place] [address] 08979 Protein [Mass/Vol] 7.3 g/dL Normal 6.3-8.2 [facility] Comment on above: Performed By: #### D DIMR, TNIH, CBC, COMPH #### [facility] [address] [place] [address] Sodium [Moles/Vol] 140 mmol/L Normal 139-147 [facility] Comment on above: Performed By: #### D DIMR, TNIH, CBC, COMPH #### [facility] [address] [place] [address] 33061 Urea nitrogen [Mass/Vol] 10 mg/dL Normal 7-25 [facility] Comment on above: Performed By: #### D DIMR, TNIH, CBC, COMPH #### [facility] [address] [place] [address] 11411 D-DIMERon 11-01-2020 D-DIMER 214.00 ng/mL FEU Normal <=[address] [facility] Comment on above: Result Comment: [...] #### D DIMR, TNIH, CBC, COMPH #### [facility] [address] [place] [address] TROPONIN, HIGH SENSITIVITYon 11-01-2020 TROPONIN, HIGH SENSITIVITY <0.03 Normal 0.00-0.06 [facility] Comment on above: Result Comment: RISK STRATIFICATION: Low risk 0.00-0.06 Intermediate risk 0.07-<0.1 High risk 0.1-0.6 Suggestive of VT >.6 Performed By: #### D DIMR, TNIH, CBC, COMPH #### [facility] [address] [place] [address] Xray, Chest 2 viewson 2020 Xray, Chest 2 views TWO VIEWS OF THE CHEST CLINICAL HISTORY: Chest pain, unspecified COMPARISON: None. FINDINGS: The cardiac silhouette and mediastinal contours are within normal limits. The lungs are clear. There is no pleural effusion or pneumothorax. IMPRESSION: No acute findings. Normal [facility] Comment on above: Order Comment: Chest pain, unspecified COVID-19, MOLECULARon 2020 SARS-COV-2 (DIASORIN) Not Detected Normal Not Detected [facility] Comment on above: Order Comment: : Ayleen l Swab COVID/Flu Lab Tests (OP in UTM/Dry) Result Comment: This test was performed under the FDA's Emergency Use Authorization (EUA). Testing was performed using the Simplexa SARS-CoV-2 RT-PCR assay ([employer]) on the [employer] platform. This test has not been approved for use in asymptomatic patients and its performance in this patient population has not been evaluated. Negative results do not rule out the presence of SARS-CoV-2/COVID-19. Fact sheets for this EUA can be found at the following links: For Healthcare Providers: https://www.fda.gov/media/942705/download For Patients: https://www.fda.gov/media/690780/download Performed By: #### L [id number] #### [facility] [address] [place] [address] Zen Kwon M.D. [id number] Vital Signs Date Time Vital Sign Value Performing Clinician Facility 01-01-2023 11:10-0400 Body height 160.02 cm Moni Cain Other [employer] Other 01-01-2023 11:10-0400 Body mass index (BMI) [Ratio] 33.65 kg/m2 Moni Cain Other [employer] [facility] Other 01-01-2023 11:10-0400 Body temperature 98.2 [degF] Moni Cain Other [employer] [facility] Other 01-01-2023 11:10-0400 Body weight 86.18 kg Moni Cain Other [employer] Other 01-01-2023 11:10-0400 Diastolic blood pressure 68 mm[Hg] Moni Cain Other [employer] [facility] Other 01-01-2023 11:10-0400 Respiratory rate 18 /min Moni Cain Other [employer] [facility] Other 01-01-2023 11:10-0400 SaO2% (BldA) [Mass fraction] 96 % Moni Cain Other [employer] [facility] Other 01-01-2023 11:10-0400 Systolic blood pressure 125 mm[Hg] Moni Cain Other [employer] [facility] Other 10-31-2022 18:10-0400 Body height 160.02 cm Kamala Parker Other [employer] Other 10-31-2022 18:10-0400 Body mass index (BMI) [Ratio] 34.5 kg/m2 Kamala Parker Other [employer] [facility] Other 10-31-2022 18:10-0400 Body temperature 98.1 [degF] Kamala Parker Other [employer] [facility] Other 10-31-2022 18:10-0400 Body weight 88.36 kg Kamala Parker Other [employer] Other 10-31-2022 18:10-0400 Diastolic blood pressure 57 mm[Hg] Kamala Parker Other [employer] Other 10-31-2022 18:10-0400 Respiratory rate 18 /min Kamala Parker Other [employer] Other 10-31-2022 18:10-0400 SaO2% (BldA) [Mass fraction] 99 % Kamala Parker Other [employer] Other 10-31-2022 18:10-0400 Systolic blood pressure 101 mm[Hg] Kamala Parker Other [employer] Other 05-22-2022 14:42-0500 Body height 157.5 cm Sidra Joseph PA-C Work Phone: [facility] 05-22-2022 14:42-0500 Body mass index (BMI) [Ratio] 36.69 kg/m2 Sidra Joseph PA-C Work Phone: [facility] 05-22-2022 14:42-0500 Body weight 90.99 kg Sidra Joseph PA-C Work Phone: [facility] 05-22-2022 14:42-0500 Diastolic blood pressure 61 mm[Hg] Sidra Joseph PA-C Work Phone: [facility] 05-22-2022 14:42-0500 Heart rate 74 /min Sidra Joseph PA-C Work Phone: [facility] 05-22-2022 14:42-0500 Systolic blood pressure 115 mm[Hg] Sidra Joseph PA-C Work Phone: [facility] 05-01-2022 13:16-0500 Body height 157.5 cm Sidra Joseph PA-C Work Phone: [facility] 05-01-2022 13:16-0500 Body mass index (BMI) [Ratio] 36.03 kg/m2 Sidra Joseph PA-C Work Phone: [facility] 05-01-2022 13:16-0500 Body weight 89.36 kg Sidra Joseph PA-C Work Phone: [facility] 05-01-2022 13:16-0500 Diastolic blood pressure 84 mm[Hg] Sidra Joseph PA-C Work Phone: [facility] 05-01-2022 13:16-0500 Heart rate 73 /min Sidra Joseph PA-C Work Phone: [facility] 05-01-2022 13:16-0500 Systolic blood pressure 114 mm[Hg] Sidra Joseph PA-C Work Phone: [facility] 07-05-2021 14:01-0500 Body height 157.5 cm Claudio Price PA-C Work Phone: [facility] Comment on above: per pt. 07-05-2021 14:01-0500 Body mass index (BMI) [Ratio] 34.75 kg/m2 Claudio Price PA-C Work Phone: [facility] 07-05-2021 14:01-0500 Body temperature 98.49 [degF] Claudio Price PA-C Work Phone: [facility] 07-05-2021 14:01-0500 Body weight 86.18 kg Claudio Cesar PA-C Work Phone: [facility] Comment on above: per pt. 07-05-2021 14:01-0500 Diastolic blood pressure 72 mm[Hg] Claudio Price PA-C Work Phone: [facility] 07-05-2021 14:01-0500 Heart rate 68 /min Claudio Price PA-C Work Phone: [facility] 07-05-2021 14:01-0500 SaO2% (BldA) [Mass fraction] 97 % Claudio Price PA-C Work Phone: [facility] 07-05-2021 14:01-0500 Systolic blood pressure 110 mm[Hg] Claudio Price PA-C Work Phone: [facility] 06-26-2021 11:02-0500 Body height 157.5 cm Sara Bernens PA-C Work Phone: [facility] 06-26-2021 11:02-0500 Body mass index (BMI) [Ratio] 34.75 kg/m2 Sara Bernens PA-C Work Phone: [facility] 06-26-2021 11:02-0500 Body temperature 98.49 [degF] Sara Bernens PA-C Work Phone: [facility] 06-26-2021 11:02-0500 Body weight 86.18 kg Sara Bernens PA-C Work Phone: [facility] 06-26-2021 11:02-0500 Diastolic blood pressure 76 mm[Hg] Sara Bernens PA-C Work Phone: [facility] 06-26-2021 11:02-0500 Heart rate 82 /min Sara Bernens PA-C Work Phone: [facility] 06-26-2021 11:02-0500 Respiratory rate 16 /min Sara Bernens PA-C Work Phone: [facility] 06-26-2021 11:020500 Systolic blood pressure 122 mm[Hg] Sara Marques PA-C Work Phone: [facility] Encounters Encounter Date Encounter Type Care Provider Facility Start: 02-02-2024 End: 02-02-2024 ambulatory BRANDT ROBERTS Not Available Start: 12-01-2023 End: 12-01-2023 ambulatory JASIEL OAKES Not Available Start: 10-29-2023 End: 10-29-2023 ambulatory GWENDOLYN Ashley ALY Not Available Start: 07-29-2023 End: 07-29-2023 ambulatory ERICKA OTBIAS Not Available Start: 03-25-2023 End: 03-25-2023 ambulatory GWENDOLYN LU Not Available Start: 01-01-2023 End: 01-01-2023 ambulatory Moni Cain Other [employer] Other Start: 01-01-2023 Office outpatient vi sit 15 minutes Moni Cain [facility] Start: 10-31-2022 End: 10-31-2022 ambulatory Kamala Parker Other [employer] Other Start: 10-31-2022 Office outpatient ne w 20 minutes Kamala Parker [facility] Start: 06-19-2022 End: 06-19-2022 ambulatory PHYSICIAN W[facility] Start: 05-22-2022 End: 05-22-2022 ambulatory SIDRA JOSEPH [facility] Start: 05-22-2022 End: 05-22-2022 Patient encounter procedure Sidra Joseph PA-C Work Phone: [facility] Comment on above: Encounter for IUD in sertion (Primary Dx); Negative test; Routine screening for STI (sexually transmitted infection) Start: 05-01-2022 End: 05-01-2022 ambulatory SIDRA JOSEPH [facility] Start: 05-01-2022 End: 05-01-2022 Office outpatient new 20 minutes Sidra Joseph PA-C Work Phone: [facility] Comment on above: Pelvic pain in femal e (Primary Dx); Abnormal uterine bleeding (AUB); PCOS (polycystic ovarian syndrome) Start: 04-03-2022 End: 04-07-2022 Emergency department patient visit PHYSICIAN [facility] Start: 04-03-2022 End: 04-03-2022 Emergency department patient visit PHYSICIAN NO [facility] System Start: 11-12-2021 End: 11-13-2021 ambulatory PHYSICIAN NO [facility] Start: 07-24-2021 ambulatory PHYSICIAN NO [facility] Start: 07-05-2021 End: 07-05-2021 ambulatory PHYSICIAN NO [facility] Start: 07-05-2021 End: 07-05-2021 Office outpatient visit 10 minutes Claudio Price PA-C Work Phone: [facility] Comment on above: Rash (Primary Dx); Fungal infection Start: 06-26-2021 End: 06-26-2021 ambulatory PHYSICIAN NO [facility] Start: 06-26-2021 End: 06-26-2021 Office outpatient visit 15 minutes Sara Marques PA-C Work Phone: [facility] Comment on above: Pityriasis rosea (Pr imary Dx); Achilles tendinitis, unspecified laterality Start: 02-23-2021 End: 02-23-2021 Clinical Support Shanell Rosas RN [facility] Comment on above: Need for vaccination (Primary Dx) Start: 02-10-2021 End: 02-10-2021 ambulatory COLETTE DE LA PAZ [facility] Start: 12-19-2020 End: 12-19-2020 ambulatory JANI SÁNCHEZ Facility:H1 Start: 12-05-2020 End: 12-06-[address] ZAN MCCLENDON Facility:[facility]1 Start: 11-01-2020 ambulatory KILLIAN CURIEL Facilit y:[facility]OLO Start: 11-01-2020 End: 11-02-2020 ambulatory KILLIAN CURIEL Facility:[facility] Start: 08-27-2020 End: 08-27-2020 [facility] Procedures Date Procedure Procedure Detail Performing Clinician Start: 05-22-2022 Iadna chlamydia trachomatis amplified probe tq Sidra Joseph PA-C Work Phone: Start: 05-22-2022 Urine test visual color cmprsn meths Sidra Joseph PA-C Work Phone: Plan of Treatment Date Care Activity Detail Author Start: 05-22-2023 Screening for Chlamy ash trachomatis Chlamydia Screening [facility] Start: 06-19-2022 End: 06-19-2022 Patient encounter procedure 06/19/2022 Office Visit Obstetrics and Gynecology Sidra Joseph PA-C [address] [place] [address] [place] [address] [facility] Start: 05-22-2022 End: 05-22-2022 Patient encounter procedure 05/22/2022 Procedure visit Obstetrics and Gynecology Sidra Joseph PA-C [address] [place] [address] Dr [place]ae [place], [place] [id number] [facility] Start: 01-17-2022 Influenza vaccination Sequenti al Influenza Vaccine (#1) [facility] Start: 11-04-2021 Tetanus vaccination Tetanus: Every 1 0yrs [facility] Start: 02-24-2021 Depression screening using PHQ-9 (Patient Health Questionnaire 9) score Depression Screening (PHQ-2/9) [facility] Comment on above: Postponed from 07/16 (Patient Refused) Start: 01-23-2021 COVID-19 Vaccine (3 - Booster for Moderna series) COVID-19 Vaccine (3 - Booster for Moderna series) [facility] Start: 10-18-2020 COVID-19 Vaccine (3 - Booster for Moderna series) COVID-19 Vaccine (3 - Booster for Moderna series) [facility] Start: 2017 Hepatitis C screening Hepatitis C Sc reening [facility] Start: 2014 HIV screening HIV Screening [facility] Start: 2011 Depression screening using PHQ-9 (Patient Health Questionnaire 9) score Depression Screening (PHQ-2/9) [facility] Start: 2002 History and physical examination, annual for health maintenance Wellness Visit [facility] Start: 1999 Screening for Chlamy ash trachomatis Chlamydia Screening [facility] Start: 1999 Screening for malign ant neoplasm of cervix Pap Smear [facility] Chlamydia trachomati s rRNA assay [facility] Work Phone: Comment on above: Ordered: 05/22/2022 Neisseria gonorrhoea e nucleic acid detection [facility] Comment on above: Ordered: 05/22/2022 Trichomonas vaginali s Amplified RNA [facility] Comment on above: Ordered: 05/22/2022 Immunizations Immunization Date Immunization Notes Care Provider Fa cility 02-23-2021 influenza, injectabl e, quadrivalent, preservative free Shanell Rosas RN [facility] 02-23-2021 flu vacc [id number] 6 mos up,PF, (FLUZONE QUAD) injection Shanell Rosas RN [facility] Work Phone: 03-06-2020 influenza, injectabl e, quadrivalent, preservative free Shanell Rosas RN [facility] 11-04-2017 meningococcal B vacc ine, recombinant, OMV, adjuvanted Shanell Rosas RN [facility] 12-26-2016 meningococcal oligosaccharide (groups A, C, Y and W-135) diphtheria toxoid conjugate vaccine (MCV4O) Shanell Rosas RN [facility] 05-14-2012 hepatitis A vaccine, pediatric/adolescent dosage, 2 dose schedule Shanell Rosas RN [facility] 05-14-2012 HPV, unspecified formulation Shanell Rosas RN [facility] 01-03-2012 human papilloma viru s vaccine, quadrivalent Shanell Rosas RN [facility] 01-03-2012 varicella virus vaccine Shanell callejas RN [facility] 11-05-2011 hepatitis A vaccine, pediatric/adolescent dosage, 2 dose schedule Shanell Rosas RN [facility] 11-05-2011 human papilloma viru s vaccine, quadrivalent Shanell Rosas RN [facility] 11-05-2011 tetanus toxoid, redu cliff diphtheria toxoid, and acellular pertussis vaccine, adsorbed Shanell Rosas RN [facility] 08-02-2004 diphtheria, tetanus toxoids and acellular pertussis vaccine Shanell Rosas RN [facility] 08-02-2004 measles, mumps and rubella virus vaccine Shanell Rosas RN [facility] 08-02-2004 poliovirus vaccine, inactivated Shanell Rosas RN [facility] 01-15-2001 pneumococcal conjuga te vaccine, 7 valent Shanell Rosas RN [facility] 12-16-2000 diphtheria, tetanus toxoids and acellular pertussis vaccine, unspecified formulation Shanell Rosas RN [facility] 11-13-2000 diphtheria, tetanus toxoids and acellular pertussis vaccine, unspecified formulation Shanell Rosas RN [facility] 11-13-2000 pneumococcal conjuga te vaccine, 7 valent Shanell Rosas RN [facility] 08-07-2000 haemophilus influenz ae type b vaccine, PRP-OMP conjugate Shanell Rosas RN [facility] 08-07-2000 measles, mumps and rubella virus vaccine Shanell Rosas RN [facility] 08-07-2000 poliovirus vaccine, inactivated Shanell Rosas RN [facility] 08-07-2000 varicella virus vaccine Shanell callejas RN [facility] 07-04-2000 pneumococcal conjuga te vaccine, 7 valent Shanell Rosas RN [facility] 06-26-2000 influenza virus vacc ine, whole virus Shanell Rosas RN [facility] 05-15-2000 diphtheria, tetanus toxoids and acellular pertussis vaccine, unspecified formulation Shanell Rosas RN [facility] 05-15-2000 haemophilus influenz ae type b vaccine, PRP-OMP conjugate Shanell Rosas RN [facility] 05-15-2000 influenza virus vacc ine, whole virus Shanell Rosas RN [facility] 02-21-2000 diphtheria, tetanus toxoids and acellular pertussis vaccine, unspecified formulation Shanell Rosas RN [facility] 02-21-2000 haemophilus influenz ae type b conjugate and Hepatitis B vaccine Shanell Rosas RN [facility] 02-21-2000 poliovirus vaccine, inactivated Shanell Rosas RN [facility] 1999 diphtheria, tetanus toxoids and acellular pertussis vaccine, unspecified formulation Shanell Rosas RN [facility] 1999 haemophilus influenz ae type b conjugate and Hepatitis B vaccine Shanell Rosas RN [facility] 1999 poliovirus vaccine, inactivated Shanell Rosas RN [facility] 1999 hepatitis B vaccine, pediatric or pediatric/adolescent dosage Shanell Rosas RN [facility] Payers Date Payer Category Payer Unknown [employer] PPO [id number] 2016-Present [phone] [address] [place] [address] [id number] 2016 Unknown [employer] PPO [id number] 2016-Present [phone] [address] [place] [address] [id number] 1999 Unknown [id number] 2.16.840.1.168830.3.579.2.900 1999 Unknown [id number] 2.16.840.1.795092.3.579.2.593 1999 Unknown [id number] 2.16.840.1.960474.3.579.2.593 1999 Unknown [id number] 2.16.840.1.786233.3.579.2.903 1999 Unknown [id number] 2.16.840.1.601157.3.579.2.903 1999 Unknown [id number] 2.16.840.1.151911.3.579.2.903 1999 Unknown [id number] 2.16.840.1.970111.3.579.2.903 1999 Unknown [id number] 2.16.840.1.270617.3.579.2.903 1999 Unknown [id number] 2.16.840.1.262584.3.579.2.903 1999 Unknown [id number] 2.16.840.1.795159.3.579.2.903 1999 Unknown [id number] 2.16.840.1.011766.3.579.2.903 1999 Unknown [id number] 2.16.840.1.658023.3.579.2.903 1999 Unknown [id number] 2.16.840.1.517278.3.579.2.903 1999 Unknown [id number] 2.16.840.1.079751.3.579.2.903 1999 Unknown [id number] 2.16.840.1.533857.3.579.2.1259 1999 Unknown [id number] 2.16.840.1.126944.3.579.2.9 1999 Unknown [id number] 2.16.840.1.505943.3.579.2.1259 1999 Unknown [id number] 2.16.840.1.839426.3.579.2.9 1999 Unknown [id number] 2.16.840.1.500395.3.579.2.1259 1959 Unknown [id number] Social History Date Type Detail Facility Start: 02-10-2021 End: 05-01-2022 Tobacco smoking status MTIS Never smoked tobacco [facility] Start: 02-10-2021 End: 05-01-2022 Tobacco use and exposure Smokeless tobacco non-user [facility] Start: 2000 Sex Assigned At Not on file [facility] Start: 04-21-2022 End: 05-18-2022 Exposure to SARS-CoV-2 (event) Not sure [facility] Start: 07-05-2021 End: 05-22-2022 Alcohol intake Current drinker of alcohol (finding) [facility] Start: 07-05-2021 History SDOH Alcohol Comment weekends [facility] Sex Assigned At Sex Assigned At [facility] [employer] Other Clinical Notes 06-26-2021 to 01-01-2023 Note [...] Pt understood and agreed to tx plan. [employer] Other 06-15-2023 Evaluation note* Encounter Date Diagnosis [...] nose. Patient verbalized understanding of treatment plan. [employer] Other 01-04-2023 History of Present illness Narrative* Sidra Joseph PA-C - 05/22/2022 3:09 PM EST [facility] Physician [facility] [employer] Progress Note Last Encounter in Department: 05/01/2022 Next Encounter in Department: Visit date not found Subjective Chief Complaint Patient presents with Procedure Pt here for mirena insertion. -Cyrus GAMBINO Audra Shannon is a who presents for IUD [...] Urine 04/03/2022 Cloudy (A) Clear Final Specific [place] 04/03/2022 1.021 1.005 - 1.025 Final pH, [...] pain. Sidra Joseph PA-C documented in this [id number] History of Present illness Narrative* Sidra Joseph PA-C - 05/01/2022 2:00 PM EST [facility] [employer] Progress Note Last Encounter in Department: Visit date not found Next Encounter in Department: Visit date not found Subjective PATIENT HISTORY Audra Shannon is a 21 y.o. Chief Complaint Patient presents with Consult New Patient. 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 Symptoms got worse and went to ED [...] Urine 04/03/2022 Cloudy (A) Clear Final Specific [place] 04/03/2022 1.021 1.005 - 1.025 Final pH, [...] insertion. Sidra Joseph PA-C documented in this [id number] Instructions* Patient Instructions* Claudio Price PA-C - [...] not jeffries in the sun, sothey are leisure travel agent than the skin around them. Some spots [...] Log into your personal health record on [email or web address] and enter K490 in the Education box to learn more about Tinea Versicolor: Care Instructions. Current as of: July 19, 2020 Content Version: 13.1 [id number] [employer]. Care instructions adapted under license by your healthcare professional. If you have questions about a medical condition or this instruction, always ask your healthcare professional. [employer] disclaims any warranty or liability for your use of this information. documented in this [id number] History of Present illness Narrative* Claudio Price PA-C - 07/05/2021 2:12 PM EST Images from the original note were not included. PATIENT NAME: Audra Shannon [facility] [address] [address] : 2000 DATE OF VISIT: 07/05/2021 #: [...] medications for this visit. documented in this [id number] History of Present illness Narrative* Sara Marques PA-C - 06/26/2021 12:06 PM EST PATIENT NAME: Audra Shannon [facility] [address] [facility] [address] [facility] [id number] : 2000 DATE OF VISIT: 06/26/2021 #: [...] General: Skin is warm and dry. Comments: [place] colored, slightly raised, scaling patches over anterior [...] medications for this visit. documented in this [id number] Instructions* Patient Instructions* Sara Marques PA-C - 06/26/2021 11:33 AM EST Images from the original note were not included. Pityriasis Rosea: Care Instructions Your Care Instructions Pityriasis rosea (say yfl-qx-UW-uh-rosy ADELINE-zee-uh ) is a common skin rash. [...] rash more visible and itchy. Use an ahpl-nyt-vwtjccb 1% hydrocortisone cream for small itchy areas. [...] Log into your personal health record on [email or web address] [email or web address] and enter S327 in the Education box to learn more about Pityriasis Rosea: Care Instructions. Current as of: July 19, 2020 Content Version: 13.1 [employer]. Care instructions adapted under license by your healthcare professional. If you have questions about a medical condition or this instruction, always ask your healthcare professional. [employer] disclaims any warranty or liability for your [...] Log into your personal health record on [email or web address].[email or web address] [email or web address] and enter M689 in the Education box to learn more about Achilles Tendon: Exercises. Current as of: November 16, 2020 Content Version: 13.1 [employer]. Care instructions adapted under license by your healthcare professional. If you have questions about a medical condition or this instruction, always ask your healthcare professional. [employer] disclaims any warranty or liability for your use of this information. documented in this encounterVirginiaHealthEvaluation note* Diagnosis Need for vaccination- Primary Need [...] for venereal disease [facility] Narrative - Reported* Type Description Date Medical History PCOS Medical History anxiety Surgical History cleft palate Surgical History PE tubes Hospitalization History see surgical [employer] Other History general Narrative - Reported* Type Description Date Medical History PCOS Medical History anxiety Surgical History cleft palate Surgical History PE tubes Surgical History wisdom teeth Hospitalization History see surgical [employer] Other Summary Purpose Family History No Family History Records FoundNo Family History Records FoundNo Family History Records FoundNo Family History Records FoundNo Family History Records FoundNo Family History Records FoundNo Family History Records Found Advance Directives No Advanced Directives Records FoundDocuments on File Type Date Recorded 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 Advance Directives and Living Will Documents on File Type Date Recorded 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 Advance Directives and Living Will Reason for Referral Specialty Diagnoses / Procedures Referred By Contac t Referred To Contact Dermatology Diagnoses Rash Claudio Price PA-C [address] [place] [address] [place] [address] Kayleigh Pickard, [address] [place] [address] Referral ID Status Reason Start Date Expiration Date Visits Requested Visits Authorized [id number] Authorized Specialty Services Required/Pat ient's Best Interest 08/02/2021 08/02/2022 1 1 Additional Source Comments INFORMATION SOURCE (unrecogn ized section and content) DATE CREATED AUTHOR 08/27/2020 [facility] DATE CREATED AUTHOR AUTHOR'S ORGANIZ ATION 11/23/2020 [facility] DATE CREATED AUTHOR AUTHOR'S ORGANIZ ATION 12/23/2020 [facility] DATE CREATED AUTHOR AUTHOR'S ORGANIZ ATION 11/12/2021 [facility] DATE CREATED AUTHOR AUTHOR'S ORGANIZ ATION 05/08/2022 [facility] DATE CREATED AUTHOR AUTHOR'S ORGANIZ ATION 06/20/2022 [facility] DATE CREATED AUTHOR AUTHOR'S ORGANIZ ATION 02/03/2024 [facility] Special[facility] EPIC Reason for [...] Patient. 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 Symptoms got worse and went to ED [...] Care Teams (unrecognized sec tion and content) Bioinformaticist Relationship Specialty Start Date End Date No, Physician [facility] PCP - General 03/28/20 Bioinformaticist Relationship Specialty Start Date End Date No, Physician [facility] PCP - General 03/28/20 Bioinformaticist Relationship Specialty Start Date End Date No, Physician [facility] PCP - General 03/28/20 Bioinformaticist Relationship Specialty Start Date End Date No, Physician [facility] PCP - General 03/28/20 Claudio Price PA-C [address] [place] [address] [place] [address] PCP - ALEX Attributed Provider - [employer]MO [employer] 01/18/16 05/18/50 Bioinformaticist Relationship Specialty Start Date End Date No, Physician [facility] PCP - General 03/28/20 Claudio Price PA-C [address] [place] [address] [place] [address] PCP - ALEX Attributed Provider - [employer]MO Commercial 01/18/16 05/18/50 Bioinformaticist Relationship Specialty Start Date End Date No, Physician [facility] PCP - General 03/28/20 Claudio Price PA-C [address] [place] [address] [place] [address] PCP - ALEX Attributed Provider - MMO [...] BE BASED ON THE PRIMARY CLINICAL RECORDS. [facility]. provides no warranty or guarantee of the accuracy or completeness of information in this document.
[2024-02-10 06:19] LABS: Basophils Absolute Auto 0.1 10^3/uL (0.0-0.1); Basophils Percent Auto 0.5 % (0.2-2.0); Eosinophils Absolute Auto 0.2 10^3/uL (0.0-0.7); Eosinophils Percent Auto 1.9 % (0.9-7.0); Hematocrit 42.2 % (36.0-48.0); Immature Granulocytes Abs Auto 0.04 10^3/uL (0.00-0.03); Immature Granulocytes Pct Auto 0.4 % (0.0-0.5); Lymphocytes Absolute Auto 2.6 10^3/uL (1.2-3.8); Lymphocytes Percent Auto 24.1 % (20.5-60.0); Mean Corpuscular HGB Conc 33.2 g/dL (29.9-35.2); Mean Corpuscular Hemoglobin 30.2 pg (26.7-34.0); Mean Corpuscular Volume 91.1 fL (81.0-99.0); Mean Platelet Volume 9.6 fL (9.5-13.5); Monocytes Absolute Auto 0.7 10^3/uL (0.3-0.8); Monocytes Percent Auto 6.6 % (1.7-12.0); Neutrophils Absolute Auto 7.2 10^3/uL (1.4-6.5); Neutrophils Percent Auto 66.5 % (43.0-75.0); Platelet Count 369 10^3/uL (150-450); Red Blood Count 4.63 10^6/uL (4.20-5.40); Red Cell Distribution Width 12.2 % (11.0-15.0); White Blood Count 10.8 10^3/uL (4.0-11.0)
[2024-02-10 06:39] LABS: HCG Qualitative NEGATIVE (NEGATIVE); Internal Control Within Normal Limits
[2024-02-10] MEDS: LACTATED RINGER'S SOLUTION 1,000 ML 50 ML IV (06:59)
[2024-02-10] MEDS: CIPROFLOXACIN HCL/DEXAMETH 0.3%/0.1% OTIC SUSP 150 DROP/7.5 ML BOTTLE OT (07:53)
[2024-02-10] MEDS: ONDANSETRON PF 4 MG/2 ML VIAL IV (08:20)
== END 2024-02-10 09:10 | disposition home or self-care (01) ==
PROVIDERS: PCP Family Medicine; Visit Provider Otolaryngology
PROC: (CPT 00126; principal; 2024-02-10 07:30)
DX: H69.93 Unspecified Eustachian tube disorder, bilateral (principal); F17.290 Nicotine dependence, other tobacco product, uncomplicated; I48.91 Unspecified atrial fibrillation; G47.33 Obstructive sleep apnea (adult) (pediatric)
CPT/HCPCS: 00126; 69436; 36415; 84703; 85025; J2405; J2704

== ENCOUNTER 2024-03-03 15:39 | Outpatient (OUT) | payer OTHER, SELFPAY ==
--- OUTSIDE RECORDS SUMMARY | 2024-03-03 15:44 | XMS_ITS | CCD ---
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 Name Role Phone JCFILIBERTO NICKOLAS Referring Unavailable [...] Provider Unavailabl e Claudio Price PA-C Unavailable [phone] HELDER ALEXANDER Referring Unava ilable NO, PHYSICIAN Primary Care Unavailable HLEDER ALEXANDER Attending Unava ilable NO, PHYSICIAN Primary [...] to adverse reactions to drug 02-10-2021 Anaphylaxis [facility] (9 sources) Non-steroidal anti-inflammatory agent Propensity to adverse reactions to drug 02-10-2021 Anaphylaxis [facility] Medications Current Medications Medication Drug Class(es) Dates Sig (Normalized) Sig (Original) [id number] 200 actuat albuterol 0.09 mg/actuat metered dose [...] 30 g 0 07/05/2021 05/01/2022 Discontinued levonorgestrel 0.415891 mg/hr intrauterine system (11 sources) Progestin, Progestin-containi [...] (COVID-19) RNA MODESTA+probe Ql (Unsp spec) Negative [employer] Other COVID/FLU RT-PCR Negative [facility] [employer] Other COVID Quick Testingon 2022 Result Negative [employer] Other Quick Strepon 10-31-2022 S. pyogenes Org specific cx Ql (Throat) Negative [employer] Other Quick Strep [employer] Other Chlamydia/Gonorrhoeae Amplif ied RNAOrdered By: Tiffany Abbasi on 05-23-2022 C. trachomatis rRNA MODESTA+probe Ql (Vag fld) Negative Negative [facility] N. gonorrhoeae rRNA MODESTA+probe Ql (Vag fld) Negative Negative [facility] No Panel InformationOrdered By: Tiffany Abbasi on 05-23-2022 Interpretation and review of laboratory results Normal [facility] Trichomonas vaginalis Amplif ied RNAon 05-23-2022 T. vaginalis rRNA MODESTA+probe Ql (Vag fld) Negative Negative [facility] HCG ( test) Ql (U)O rdered By: Erin Cottrell on 05-22-2022 Internal Control Pass [facility] Interpretation and review of laboratory results Normal [facility] Laboratory - Chemistry and C hemistry - challengeOrdered By: Erin Cottrell on 05-22-2022 HCG ( test) Ql (U) Negative Negative [facility] PELVIC TRANSABDOMINAL AND TRANSVAGINAL WITH COLOR FLOWon [...] FriApr 03, 2022 2:48:51 PM EST Normal [facility] Comment on above: Order Comment: Injur [...] FriNov 12, 2021 11:20:08 AM EDT Normal [facility] Comment on above: Order Comment: Injur y/Trauma or Illness?:Illness/Other How long have you had these symptoms (acute/chronic)?:Acute Reason for exam?:cough sob History of cancer?:no Surgeries, chemotherapy, or radiation?:no Type of Exam?:Initial Additional signs and symptoms?:tested + for covid last week COVID-19, MOLECULARon 2020 INTERNAL CONTROL (DHALIWAL ID) Pass Normal [facility] SARS-CoV-2 (COVID-19) Ab IA Ql Not detected Normal Not Detected [facility] PAP ACOG PANEL 3: 20 to on 12-22-2020 . . Normal [facility] Comment on above: Result Comment: Perf ormed at: WB Performed By: #### [id number] #### [facility] [address] [place], [place] [address] Danae Snow Age Gdln ACOG Testing - Normal [facility] Comment on above: Performed By: #### [id number] #### [facility] [address] [place], [place] [address] Danae Snow Chlamydia, Nuc. Acid Amp Negative Normal Negative [facility] Comment on above: Result Comment: Perf ormed at: =G Performed By: #### [id number] #### [facility] [address] [place] [address] Danae Junioren DIAGNOSIS: Comment Normal [facility] Comment on above: Result Comment: NEGA TIVE FOR INTRAEPITHELIAL LESION OR MALIGNANCY. CELLULAR CHANGES ASSOCIATED WITH INFLAMMATION ARE PRESENT. THIS SPECIMEN WAS RESCREENED PART OF OUR ORAL HEALTH THERAPIST PROGRAM. Performed at: WB Performed By: #### [id number] #### [facility] [address] [place] [address] Danae Snow Gonococcus, Nuc. Acid Amp Negative Normal Negative [facility] Comment on above: Result Comment: Perf ormed at: =G Performed By: #### [id number] #### [facility] [address] [place] [address] Danae Junioren Methodology: Comment Normal [facility] Comment on above: Result Comment: This liquid based ThinPrep(R) pap test was screened with the use of an image guided system. Performed at: WB Performed By: #### [id number] #### [facility] [address] [place] [address] Danae Snow Note: Comment Normal [facility] Comment on above: Result Comment: The Pap smear is a screening test designed to aid in the detection of premalignant and malignant conditions of the uterine cervix. It is not a diagnostic procedure and should not be used as the sole means of detecting cervical cancer. Both false-positive and false-negative reports do occur. . Performed at: WB Performed By: #### [id number] #### [facility] [address] [place] [address] Danae Snow Performed by: Comment Normal [facility] Comment on above: Result Comment: Santos Vuong, Lane Marker Installer (ASCP) Performed at: WB Performed By: #### [id number] #### [facility] [address] [place] [address] Dnaae Snow QC reviewed by: Comment Normal [facility] Comment on above: Result Comment: Elijah Ann, Supervisory Lane Marker Installer (ASCP) Performed at: WB Performed By: #### [id number] #### [facility] [address] [place] [address] Danae Snow Reflex Criteria: Comment Normal [facility] Comment on above: Result Comment: The HPV DNA reflex criteria were not met with this specimen result therefore, no HPV testing was performed. . Performed at: WB Performed By: #### [id number] #### [facility] [address] [place] [address] Danae Snow Specimen adequacy: Comment Normal [facility] Comment on above: Result Comment: Sati sfactory for evaluation. Endocervical and/or squamous metaplastic cells (endocervical component) are present. Performed at: WB Performed By: #### [id number] #### [facility] [address] [place] [address] Danae Snow US SINGLE QUAD RT UPPERon [...] YOUSIF ARIAS Date: 2020-12-05 13:58 Normal [facility] 11-01-2020 Basophils (Bld) [#/Vol] 0.04 10*3/uL Normal <=0.2 [facility] [employer] Comment on above: Performed By: #### D DIMR, TNIH, CBC, COMPH #### [facility] [address] [place] [address] 50925 Basophils/100 WBC (Bld) 0.4 % Normal [facility] Comment on above: Performed By: #### D DIMR, TNIH, CBC, COMPH #### [facility] [address] [place] [address] 23953 Eosinophils (Bld) [#/Vol] 0.24 10*3/uL Normal <=0.60 [facility] Comment on above: Performed By: #### D DIMR, TNIH, CBC, COMPH #### [facility] [address] [place] [address] 56904 Eosinophils/100 WBC (Bld) 2.5 % Normal [facility] Comment on above: Performed By: #### D DIMR, TNIH, CBC, COMPH #### [facility] [address] [place] [address] 13088 Hematocrit (Bld) [Volume fraction] 40.3 % Normal 35.0-45.0 [facility] Comment on above: Performed By: #### D DIMR, TNIH, CBC, COMPH #### [facility] [address] [place] [address] 27714 Hemoglobin (Bld) [Mass/Vol] 13.1 g/dL Normal 11.8-15.5 [facility] Comment on above: Performed By: #### D DIMR, TNIH, CBC, COMPH #### [facility] [address] [place] [address] 02125 Immature granulocytes (Bld) [#/Vol] 0.02 10*3/uL Normal 0.00-0.10 [facility] Comment on above: Performed By: #### D DIMR, TNIH, CBC, COMPH #### [facility] [address] [place] [address] 56645 Immature granulocytes/100 WBC (Bld) 0.2 % Normal [facility] Comment on above: Performed By: #### D DIMR, TNIH, CBC, COMPH #### [facility] [address] [place] [address] 26406 Lymphocytes (Bld) [#/Vol] 2.71 10*3/uL Normal 1.00-4.50 [facility] Comment on above: Performed By: #### D DIMR, TNIH, CBC, COMPH #### [facility] [address] [place] [address] 59028 Lymphocytes/100 WBC (Bld) 28.1 % Normal [facility] Comment on above: Performed By: #### D DIMR, TNIH, CBC, COMPH #### [facility] [address] [place] [address] 37995 MCH (RBC) [Entitic mass] 27.9 pg Normal 27.0-34.0 [facility] Comment on above: Performed By: #### D DIMR, TNIH, CBC, COMPH #### [facility] [address] [place] [address] 63083 MCHC (RBC) [Mass/Vol] 32.5 g/dL Normal 31.0-36.0 [facility] Comment on above: Performed By: #### D DIMR, TNIH, CBC, COMPH #### [facility] [address] [place] [address] 10494 MCV (RBC) [Entitic vol] 85.9 fL Normal 81.0-100.0 [facility] Comment on above: Performed By: #### D DIMR, TNIH, CBC, COMPH #### [facility] [address] [place] [address] 60830 Monocytes (Bld) [#/Vol] 0.66 10*3/uL Normal 0.10-0.80 [facility] Comment on above: Performed By: #### D DIMR, TNIH, CBC, COMPH #### [facility] [address] [place] [address] 24417 MONOS 6.8 % Normal [facility] Comment on above: Performed By: #### D DIMR, TNIH, CBC, COMPH #### [facility] [address] [place] [address] 83318 Neutrophils (Bld) [#/Vol] 5.97 10*3/uL Normal 1.50-7.50 [facility] Comment on above: Performed By: #### D DIMR, TNIH, CBC, COMPH #### [facility] [address] [place] [address] 08278 Platelet mean volume (Bld) [Entitic vol] 9.8 fL Normal 8.5-13.0 [facility] Comment on above: Performed By: #### D DIMR, TNIH, CBC, COMPH #### [facility] [address] [place] [address] 86488 Platelets (Bld) [#/Vol] 362 10*3/uL Normal 150-400 [facility] Comment on above: Performed By: #### D DIMR, TNIH, CBC, COMPH #### [facility] [address] [place] [address] 64149 RBC (Bld) [#/Vol] 4.69 10*6/uL Normal 3.80-5.10 [facility] Comment on above: Performed By: #### D DIMR, TNIH, CBC, COMPH #### [facility] [address] [place] [address] 46617 RDW (STD DEVIATION) 43.9 fL Normal 38.0-48.0 [facility] Comment on above: Performed By: #### D DIMR, TNIH, CBC, COMPH #### [facility] [address] [place] [address] 63481 SEGS 62.0 % Normal [facility] Comment on above: Performed By: #### D DIMR, TNIH, CBC, COMPH #### [facility] [address] [place] [address] 14763 WBC (Bld) [#/Vol] 9.64 10*3/uL Normal 4.50-11.00 [facility] Comment on above: Performed By: #### D DIMR, TNIH, CBC, COMPH #### [facility] [address] [place] [address] 77083 COMPREHENSIVE METABOLIC PANE Felipe 11-01-2020 Albumin [Mass/Vol] 3.5 g/dL Normal 3.5-5.0 [facility] Comment on above: Performed By: #### D DIMR, TNIH, CBC, COMPH #### [facility] [address] [place] [address] 12493 ALP [Catalytic activity/Vol] 76 U/L Normal 34-115 [facility] Comment on above: Performed By: #### D DIMR, TNIH, CBC, COMPH #### [facility] [address] [place] [address] 90392 ALT [Catalytic activity/Vol] 25 U/L Normal 11-66 [facility] Comment on above: Performed By: #### D DIMR, TNIH, CBC, COMPH #### [facility] [address] [place] [address] 52173 AST [Catalytic activity/Vol] 29 U/L Normal 5-40 [facility] Comment on above: Performed By: #### D DIMR, TNIH, CBC, COMPH #### [facility] [address] [place] [address] 11911 Bilirubin [Mass/Vol] 0.4 mg/dL Normal 0.2-1.3 [facility] Comment on above: Result Comment: Prom acta (Eltrombopag) use may falsely elevate total bilirubin results. Performed By: #### D DIMR, TNIH, CBC, COMPH #### [facility] [address] [place] [address] 52754 Calcium [Mass/Vol] 9.1 mg/dL Normal 8.3-10.0 [facility] Comment on above: Performed By: #### D DIMR, TNIH, CBC, COMPH #### [facility] [address] [place] [address] Chloride [Moles/Vol] 102 mmol/L Normal 99-109 [facility] Comment on above: Performed By: #### D DIMR, TNIH, CBC, COMPH #### [facility] [address] [place] [address] CO2 [Moles/Vol] 23 mmol/L Normal 22-32 [facility] Comment on above: Performed By: #### D DIMR, TNIH, CBC, COMPH #### [facility] [address] [place] [address] Creatinine [Mass/Vol] 0.81 mg/dL Normal 0.55-1.02 [facility] Comment on above: Performed By: #### D DIMR, TNIH, CBC, COMPH #### [facility] [address] [place] [address] 14377 GFR >60.00 Normal >=60 [facility] Comment on above: Result Comment: Unit s [...] CBC, COMPH #### [facility] [address] [place] [address] GFR NON- >60.00 Normal >=60 [facility] Comment on above: Result Comment: Unit [...] #### D DIMR, TNIH, CBC, COMPH #### [facility] [address] [place] [address] Glucose [Mass/Vol] 88 mg/dL Normal 65-110 [facility] Comment on above: Performed By: #### D DIMR, TNIH, CBC, COMPH #### [facility] [address] [place] [address] 35438 Potassium [Moles/Vol] 4.3 mmol/L Normal 3.6-5.0 [facility] Comment on above: Performed By: #### D DIMR, TNIH, CBC, COMPH #### [facility] [address] [place] [address] 02305 Protein [Mass/Vol] 7.3 g/dL Normal 6.3-8.2 [facility] Comment on above: Performed By: #### D DIMR, TNIH, CBC, COMPH #### [facility] [address] [place] [address] Sodium [Moles/Vol] 140 mmol/L Normal 139-147 [facility] Comment on above: Performed By: #### D DIMR, TNIH, CBC, COMPH #### [facility] [address] [place] [address] 35200 Urea nitrogen [Mass/Vol] 10 mg/dL Normal 7-25 [facility] Comment on above: Performed By: #### D DIMR, TNIH, CBC, COMPH #### [facility] [address] [place] [address] 14560 D-DIMERon 11-01-2020 D-DIMER 214.00 ng/mL FEU Normal <=682 [facility] Comment on above: Result [...] #### D DIMR, TNIH, CBC, COMPH #### [facility] [address] [place] [address] TROPONIN, HIGH SENSITIVITYon 11-01-2020 TROPONIN, HIGH SENSITIVITY <0.03 Normal 0.00-0.06 [facility] Comment on above: Result Comment: RISK STRATIFICATION: Low risk 0.00-0.06 Intermediate risk 0.07-<0.1 High risk 0.1-0.6 Suggestive of FL >.6 Performed By: #### D DIMR, TNIH, CBC, COMPH #### [facility] [address] [place] [address] Xray, Chest 2 viewson 2020 Xray, Chest 2 views TWO VIEWS OF THE CHEST CLINICAL HISTORY: Chest pain, unspecified COMPARISON: None. FINDINGS: The cardiac silhouette and mediastinal contours are within normal limits. The lungs are clear. There is no pleural effusion or pneumothorax. IMPRESSION: No acute findings. Normal [facility] Comment on above: Order Comment: Chest pain, unspecified COVID-19, MOLECULARon 2020 SARS-COV-2 (DIASORIN) Not Detected Normal Not Detected [facility] Comment on above: Order Comment: : Ayleen l Swab COVID/Flu Lab Tests (OP in UTM/Dry) Result Comment: This test was performed under the FDA's Emergency Use Authorization (EUA). Testing was performed using the Simplexa SARS-CoV-2 RT-PCR assay (Adzerk) on the [employer] platform. This test has not been approved for use in asymptomatic patients and its performance in this patient population has not been evaluated. Negative results do not rule out the presence of SARS-CoV-2/COVID-19. Fact sheets for this EUA can be found at the following links: For Healthcare Providers: https://www.fda.gov/media/415225/download For Patients: https://www.fda.gov/media/928479/download Performed By: #### L [id number] #### [facility] [address] [place] [address] Zen Kwon M.D. [id number] Vital Signs Date Time Vital Sign Value Performing Clinician Facility 01-01-2023 11:10-0400 Body height 160.02 cm Moni Cain Other [employer] Other 01-01-2023 11:10-0400 Body mass index (BMI) [Ratio] 33.65 kg/m2 Moni Cain Other [employer] Other 01-01-2023 11:10-0400 Body temperature 98.2 [degF] Moni Cain Other [employer] Other 01-01-2023 11:10-0400 Body weight 86.18 kg Moni Cain Other [employer] Other 01-01-2023 11:10-0400 Diastolic blood pressure 68 mm[Hg] Moni Cain Other [employer] Other 01-01-2023 11:10-0400 Respiratory rate 18 /min Moni Cain Other [employer] Other 01-01-2023 11:10-0400 SaO2% (BldA) [Mass fraction] 96 % Moni Cain Other [employer] Other 01-01-2023 11:10-0400 Systolic blood pressure 125 mm[Hg] Moni Cain Other [employer] Other 10-31-2022 18:10-0400 Body height 160.02 cm Kamala Parker Other [employer] Other 10-31-2022 18:10-0400 Body mass index (BMI) [Ratio] 34.5 kg/m2 Kamala Parker Other [employer] Other 10-31-2022 18:10-0400 Body temperature 98.1 [degF] Kamala Parker Other [employer] Other 10-31-2022 18:10-0400 Body weight 88.36 kg Kamala Parker Other [employer] Other 10-31-2022 18:10-0400 Diastolic blood pressure 57 mm[Hg] Kamala Parker Other [employer] Other 10-31-2022 18:10-0400 Respiratory rate 18 /min Kamala Parker Other [employer] Other 10-31-2022 18:10-0400 SaO2% (BldA) [Mass fraction] 99 % Kamala Parker Other [employer] Other 10-31-2022 18:10-0400 Systolic blood pressure 101 mm[Hg] Kamala Parker Other [employer] Other 05-22-2022 14:42-0500 Body height 157.5 cm Sidra Joseph PA-C Work Phone: [facility] 05-22-2022 14:42-0500 Body mass index (BMI) [Ratio] 36.69 kg/m2 Sidra Joseph PA-C Work Phone: [facility] 05-22-2022 14:42-0500 Body weight 90.99 kg Sidra Joseph PA-C Work Phone: [facility] 05-22-2022 14:42-0500 Diastolic blood pressure 61 mm[Hg] Sidra Joseph PA-C Work Phone: [facility] 05-22-2022 14:42-0500 Heart rate 74 /min Sidra Joseph PA-C Work Phone: [facility] 05-22-2022 14:42-0500 Systolic blood pressure 115 mm[Hg] Sidra Joseph PA-C Work Phone: [facility] 05-01-2022 13:16-0500 Body height 157.5 cm Sidra Joseph PA-C Work Phone: [facility] 05-01-2022 13:16-0500 Body mass index (BMI) [Ratio] 36.03 kg/m2 Sidra Joseph PA-C Work Phone: [facility] 05-01-2022 13:16-0500 Body weight 89.36 kg Sidra Joseph PA-C Work Phone: [facility] 05-01-2022 13:16-0500 Diastolic blood pressure 84 mm[Hg] Sidra Joseph PA-C Work Phone: [facility] 05-01-2022 13:16-0500 Heart rate 73 /min Sidra Joseph PA-C Work Phone: [facility] 05-01-2022 13:16-0500 Systolic blood pressure 114 mm[Hg] Sidra Joseph PA-C Work Phone: [facility] 07-05-2021 14:01-0500 Body height 157.5 cm Claudio Price PA-C Work Phone: [facility] Comment on above: per pt. 07-05-2021 14:01-0500 Body mass index (BMI) [Ratio] 34.75 kg/m2 Claudio Price PA-C Work Phone: [facility] 07-05-2021 14:01-0500 Body temperature 98.49 [degF] Claudio Price PA-C Work Phone: [facility] 07-05-2021 14:01-0500 Body weight 86.18 kg Claudio Cesar PA-C Work Phone: [facility] Comment on above: per pt. 07-05-2021 14:01-0500 Diastolic blood pressure 72 mm[Hg] Claudio Price PA-C Work Phone: [facility] 07-05-2021 14:01-0500 Heart rate 68 /min Claudio Price PA-C Work Phone: [facility] 07-05-2021 14:01-0500 SaO2% (BldA) [Mass fraction] 97 % Claudio Price PA-C Work Phone: [facility] 07-05-2021 14:01-0500 Systolic blood pressure 110 mm[Hg] Claudio Price PA-C Work Phone: [facility] 06-26-2021 11:02-0500 Body height 157.5 cm Sara Bernens PA-C Work Phone: [facility] 06-26-2021 11:02-0500 Body mass index (BMI) [Ratio] 34.75 kg/m2 Sara Bernens PA-C Work Phone: [facility] 06-26-2021 11:02-0500 Body temperature 98.49 [degF] Sara Bernens PA-C Work Phone: [facility] 06-26-2021 11:02-0500 Body weight 86.18 kg Sara Bernens PA-C Work Phone: [facility] 06-26-2021 11:02-0500 Diastolic blood pressure 76 mm[Hg] Sara Bernens PA-C Work Phone: [facility] 06-26-2021 11:02-0500 Heart rate 82 /min Sara Bernens PA-C Work Phone: [facility] 06-26-2021 11:02-0500 Respiratory rate 16 /min Sara Bernens PA-C Work Phone: [facility] 06-26-2021 11:020500 Systolic blood pressure 122 mm[Hg] Sara Marques PA-C Work Phone: [facility] Encounters Encounter Date Encounter Type Care Provider Facility Start: 02-02-2024 End: 02-02-2024 ambulatory BRANDT ROBERTS Not Available Start: 12-01-2023 End: 12-01-2023 ambulatory JASIEL OAKES Not Available Start: 10-29-2023 End: 10-29-2023 ambulatory GWENDOLYN Ashley ALY Not Available Start: 07-29-2023 End: 07-29-2023 ambulatory ERICKA TOBIAS Not Available Start: 03-25-2023 End: 03-25-2023 ambulatory GWENDOLYN LU Not Available Start: 01-01-2023 End: 01-01-2023 ambulatory Moni Cain Other [employer] Other Start: 01-01-2023 Office outpatient vi sit 15 minutes Moni Cain [facility] Start: 10-31-2022 End: 10-31-2022 ambulatory Kamala Parker Other [employer] Other Start: 10-31-2022 Office outpatient ne w 20 minutes Kamala Parker [facility] Start: 06-19-2022 End: 06-19-2022 ambulatory PHYSICIAN WES [facility] Start: 05-22-2022 End: 05-22-2022 ambulatory SIDRA JOSEPH [facility] Start: 05-22-2022 End: 05-22-2022 Patient encounter procedure Sidra Joseph PA-C Work Phone: [facility] Comment on above: Encounter for IUD in sertion (Primary Dx); Negative test; Routine screening for STI (sexually transmitted infection) Start: 05-01-2022 End: 05-01-2022 ambulatory SIDRA JOSEPH [facility] Start: 05-01-2022 End: 05-01-2022 Office outpatient new 20 minutes Sidra Joseph PA-C Work Phone: [facility] Comment on above: Pelvic pain in femal e (Primary Dx); Abnormal uterine bleeding (AUB); PCOS (polycystic ovarian syndrome) Start: 04-03-2022 End: 04-07-2022 Emergency department patient visit PHYSICIAN [facility] Start: 04-03-2022 End: 04-03-2022 Emergency department patient visit PHYSICIAN NO [facility] Start: 11-12-2021 End: 11-13-2021 ambulatory PHYSICIAN NO [facility] Start: 07-24-2021 ambulatory PHYSICIAN NO [facility] Start: 07-05-2021 End: 07-05-2021 ambulatory PHYSICIAN NO [facility] Start: 07-05-2021 End: 07-05-2021 Office outpatient visit 10 minutes Claudio Price PA-C Work Phone: [facility] Comment on above: Rash (Primary Dx); Fungal infection Start: 06-26-2021 End: 06-26-2021 ambulatory PHYSICIAN NO [facility] Start: 06-26-2021 End: 06-26-2021 Office outpatient visit 15 minutes Sara Marques PA-C Work Phone: [facility] [facility] Comment on above: Pityriasis rosea (Pr imary Dx); Achilles tendinitis, unspecified laterality Start: 02-23-2021 End: 02-23-2021 Clinical Support Shanell Rosas RN [facility] at [facility] Comment on above: Need for vaccination (Primary Dx) Start: 02-10-2021 End: 02-10-2021 ambulatory COLETTE DE LA PAZ [facility] Start: 12-19-2020 End: 12-19-2020 ambulatory JANI SÁNCHEZ Facility:[facility] Start: 12-05-2020 End: 12-06-[address] ZAN MCCLENDON Facility:[facility] Start: 11-01-2020 ambulatory KILLIAN CURIEL Facilit y:[facility]OLO Start: 11-01-2020 End: 11-02-2020 ambulatory KILLIAN CURIEL Facility:[facility] Start: 08-27-2020 End: 08-27-2020 [facility] Procedures Date Procedure Procedure Detail Performing Clinician Start: 05-22-2022 Iadna chlamydia trachomatis amplified probe tq Sidra Joseph PA-C Work Phone: Start: 05-22-2022 Urine test visual color cmprsn meths Sidra Joseph PA-C Work Phone: Plan of Treatment Date Care Activity Detail Author Start: 05-22-2023 Screening for Chlamy ash trachomatis Chlamydia Screening [facility] Start: 06-19-2022 End: 06-19-2022 Patient encounter procedure 06/19/2022 Office Visit Obstetrics and Gynecology Sidra Joseph PA-C [address] [place] [address] [place] [address] [facility] Obstetrics and Gynecology Start: 05-22-2022 End: 05-22-2022 Patient encounter procedure 05/22/2022 Procedure visit Obstetrics and Gynecology Sidra Joseph PA-C [address] [place] [address] Dr [place]ae [place], [place] [id number] [facility] Obstetrics and Gynecology Start: 01-17-2022 Influenza vaccination Sequenti al Influenza Vaccine (#1) [facility] Start: 11-04-2021 Tetanus vaccination Tetanus: Every 1 0yrs [facility] Start: 02-24-2021 Depression screening using PHQ-9 (Patient Health Questionnaire 9) score Depression Screening (PHQ-2/9) [facility] Comment on above: Postponed from 07/16 (Patient Refused) Start: 01-23-2021 COVID-19 Vaccine (3 - Booster for Moderna series) COVID-19 Vaccine (3 - Booster for Moderna series) [facility] Start: 10-18-2020 COVID-19 Vaccine (3 - Booster for Moderna series) COVID-19 Vaccine (3 - Booster for Moderna series) [facility] Start: 2017 Hepatitis C screening Hepatitis C Sc reening [facility] Start: 2014 HIV screening HIV Screening [facility] Start: 2011 Depression screening using PHQ-9 (Patient Health Questionnaire 9) score Depression Screening (PHQ-2/9) [facility] Start: 2002 History and physical examination, annual for health maintenance Wellness Visit [facility] Start: 1999 Screening for Chlamy ash trachomatis Chlamydia Screening [facility] Start: 1999 Screening for malign ant neoplasm of cervix Pap Smear [facility] Chlamydia trachomati s rRNA assay [facility] Work Phone: Comment on above: Ordered: 05/22/2022 Neisseria gonorrhoea e nucleic acid detection [facility] Comment on above: Ordered: 05/22/2022 Trichomonas vaginali s Amplified RNA [facility] Comment on above: Ordered: 05/22/2022 Immunizations Immunization Date Immunization Notes Care Provider Fa cility 02-23-2021 influenza, injectabl e, quadrivalent, preservative free Shanell Rosas RN [facility] 02-23-2021 flu vacc [id number] 6 mos up,PF, (FLUZONE QUAD) injection Shanell Rosas RN [facility] Work Phone: 03-06-2020 influenza, injectabl e, quadrivalent, preservative free Shanell Rosas RN [facility] 11-04-2017 meningococcal B vacc ine, recombinant, OMV, adjuvanted Shanell Rosas RN [facility] 12-26-2016 meningococcal oligosaccharide (groups A, C, Y and W-135) diphtheria toxoid conjugate vaccine (MCV4O) Shanell Rosas RN [facility] 05-14-2012 hepatitis A vaccine, pediatric/adolescent dosage, 2 dose schedule Shanell Rosas RN [facility] 05-14-2012 HPV, unspecified formulation Shanell Rosas RN [facility] 01-03-2012 human papilloma viru s vaccine, quadrivalent Shanell Rosas RN [facility] 01-03-2012 varicella virus vaccine Shanell callejas RN [facility] 11-05-2011 hepatitis A vaccine, pediatric/adolescent dosage, 2 dose schedule Shanell Rosas RN [facility] 11-05-2011 human papilloma viru s vaccine, quadrivalent Shanell Rosas RN [facility] 11-05-2011 tetanus toxoid, redu cliff diphtheria toxoid, and acellular pertussis vaccine, adsorbed Shanell Rosas RN [facility] 08-02-2004 diphtheria, tetanus toxoids and acellular pertussis vaccine Shanell Rosas RN [facility] 08-02-2004 measles, mumps and rubella virus vaccine Shanell Rosas RN [facility] 08-02-2004 poliovirus vaccine, inactivated Shanell Rosas RN [facility] 01-15-2001 pneumococcal conjuga te vaccine, 7 valent Shanell Rosas RN [facility] 12-16-2000 diphtheria, tetanus toxoids and acellular pertussis vaccine, unspecified formulation Shanell Rosas RN [facility] 11-13-2000 diphtheria, tetanus toxoids and acellular pertussis vaccine, unspecified formulation Shanell Rosas RN [facility] 11-13-2000 pneumococcal conjuga te vaccine, 7 valent Shanell Rosas RN [facility] 08-07-2000 haemophilus influenz ae type b vaccine, PRP-OMP conjugate Shanell Rosas RN [facility] 08-07-2000 measles, mumps and rubella virus vaccine Shanell Rosas RN [facility] 08-07-2000 poliovirus vaccine, inactivated Shanell Rosas RN [facility] 08-07-2000 varicella virus vaccine Shanell callejas RN [facility] 07-04-2000 pneumococcal conjuga te vaccine, 7 valent Shanell Rosas RN [facility] 06-26-2000 influenza virus vacc ine, whole virus Shanell Rosas RN [facility] 05-15-2000 diphtheria, tetanus toxoids and acellular pertussis vaccine, unspecified formulation Shanell Rosas RN [facility] 05-15-2000 haemophilus influenz ae type b vaccine, PRP-OMP conjugate Shanell Rosas RN [facility] 05-15-2000 influenza virus vacc ine, whole virus Shanell Rosas RN [facility] 02-21-2000 diphtheria, tetanus toxoids and acellular pertussis vaccine, unspecified formulation Shanell Rosas RN [facility] 02-21-2000 haemophilus influenz ae type b conjugate and Hepatitis B vaccine Shanell Rosas RN [facility] 02-21-2000 poliovirus vaccine, inactivated Shanell Rosas RN [facility] 1999 diphtheria, tetanus toxoids and acellular pertussis vaccine, unspecified formulation Shanell Rosas RN [facility] 1999 haemophilus influenz ae type b conjugate and Hepatitis B vaccine Shanell Rosas RN [facility] 1999 poliovirus vaccine, inactivated Shanell Rosas RN [facility] 1999 hepatitis B vaccine, pediatric or pediatric/adolescent dosage Shanell Rosas RN [facility] Payers Date Payer Category Payer Unknown [employer] PPO [id number] 2016-Present [phone] [address] [place] [address] [id number] 2016 Unknown [employer] PPO [id number] 2016-Present [phone] [address] [place] [address] [id number] 1999 Unknown [id number] 2.16.840.1.916528.3.579.2.900 1999 Unknown [id number] 2.16.840.1.158986.3.579.2.593 1999 Unknown [id number] 2.16.840.1.549525.3.579.2.593 1999 Unknown [id number] 2.16.840.1.612592.3.579.2.903 1999 Unknown [id number] 2.16.840.1.780070.3.579.2.903 1999 Unknown [id number] 2.16.840.1.139570.3.579.2.903 1999 Unknown [id number] 2.16.840.1.723172.3.579.2.903 1999 Unknown [id number] 2.16.840.1.961239.3.579.2.903 1999 Unknown [id number] 2.16.840.1.568759.3.579.2.903 1999 Unknown [id number] 2.16.840.1.643812.3.579.2.903 1999 Unknown [id number] 2.16.840.1.083800.3.579.2.903 1999 Unknown [id number] 2.16.840.1.711426.3.579.2.903 1999 Unknown [id number] 2.16.840.1.235730.3.579.2.903 1999 Unknown [id number] 2.16.840.1.623661.3.579.2.903 1999 Unknown [id number] 2.16.840.1.402257.3.579.2.1259 1999 Unknown [id number] 2.16.840.1.820552.3.579.2.9 1999 Unknown [id number] 2.16.840.1.023356.3.579.2.1259 1999 Unknown [id number] 2.16.840.1.538747.3.579.2.9 1999 Unknown [id number] 2.16.840.1.045475.3.579.2.1259 1959 Unknown [id number] Social History Date Type Detail Facility Start: 02-10-2021 End: 05-01-2022 Tobacco smoking status AKIS Never smoked tobacco [facility] Start: 02-10-2021 End: 05-01-2022 Tobacco use and exposure Smokeless tobacco non-user [facility] Start: 1999 Sex Assigned At Not on file [facility] Start: 04-21-2022 End: 05-18-2022 Exposure to SARS-CoV-2 (event) Not sure [facility] Start: 07-05-2021 End: 05-22-2022 Alcohol intake Current drinker of alcohol (finding) [facility] Start: 07-05-2021 History SDOH Alcohol Comment weekends [facility] Sex Assigned At Sex Assigned At [facility] [employer] Other Clinical Notes 06-26-2021 to 01-01-2023 Note [...] Pt understood and agreed to tx plan. [employer] Other 06-15-2023 Evaluation note* Encounter Date Diagnosis [...] nose. Patient verbalized understanding of treatment plan. [employer] Other 01-04-2023 History of Present illness Narrative* Sidra Joseph PA-C - 05/22/2022 3:09 PM EST [facility] Physician [facility] [employer] Progress Note Last Encounter in Department: 05/01/2022 [...] Urine 04/03/2022 Cloudy (A) Clear Final Specific [place] 04/03/2022 1.021 1.005 - 1.025 Final pH, [...] pain. Sidra Joseph PA-C documented in this [id number] History of Present illness Narrative* Sidra Joseph PA-C - 05/01/2022 2:00 PM EST [facility] [employer] Progress Note Last Encounter in Department: Visit date not found Next Encounter in Department: Visit date not found Subjective PATIENT HISTORY Audra Shannon is a 21 y.o. Chief Complaint Patient presents with Consult New Patient. 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 Symptoms got worse and went to ED [...] Urine 04/03/2022 Cloudy (A) Clear Final Specific [place] 04/03/2022 1.021 1.005 - 1.025 Final pH, [...] insertion. 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 Some spots [...] Log into your personal health record on [email or web address] and enter K490 in the Education box to learn more about Tinea Versicolor: Care Instructions. Current as of: July 19, 2020 Content Version: 13.1 [id number] [employer]. Care instructions adapted under license by your healthcare professional. If you have questions about a medical condition or this instruction, always ask your healthcare professional. [employer] disclaims any warranty or liability for your use of this information. documented in this [id number] History of Present illness Narrative* Claudio Price PA-C - 07/05/2021 2:12 PM EST Images from the original note were not included. PATIENT NAME: Audra Shannon [facility] Urgent [address] [address] : 2000 DATE OF VISIT: 07/05/2021 #: [...] medications for this visit. documented in this [id number] History of Present illness Narrative* Sara Marques PA-C - 06/26/2021 12:06 PM EST PATIENT NAME: Audra Shannon [facility] [address] [facility] [address] : 2000 DATE OF VISIT: 06/26/2021 #: [...] General: Skin is warm and dry. Comments: [place] colored, slightly raised, scaling patches over anterior [...] medications for this visit. documented in this [id number] Instructions* Patient Instructions* Sara Marques PA-C - 06/26/2021 11:33 AM EST Images from the original note were not included. Pityriasis Rosea: Care Instructions Your Care Instructions Pityriasis rosea (say jvd-km-SR-uh-rosy ADELINE-zee-uh ) is a common skin rash. [...] rash more visible and itchy. Use an fajn-yqp-cenlein 1% hydrocortisone cream for small itchy areas. [...] Log into your personal health record on [email or web address] and enter S327 in the Education box to learn more about Pityriasis Rosea: Care Instructions. Current as of: July 19, 2020 Content Version: 13.1 [employer]. Care instructions adapted under license by your healthcare professional. If you have questions about a medical condition or this instruction, always ask your healthcare professional. [employer] disclaims any warranty or liability for your [...] Log into your personal health record on [email or web address] and enter M689 in the Education box to learn more about Achilles Tendon: Exercises. Current as of: November 16, 2020 Content Version: 13.1 [employer]. Care instructions adapted under license by your healthcare professional. If you have questions about a medical condition or this instruction, always ask your healthcare professional. [employer] disclaims any warranty or liability for your use of this information. documented in this encounterColoradoHealthEvaluation note* Diagnosis Need for vaccination- Primary Need [...] for venereal disease [facility] N[facility] - Reported* Type Description Date Medical History PCOS Medical History anxiety Surgical History cleft palate Surgical History PE tubes Hospitalization History see surgical Work Market Other History general Narrative - Reported* Type Description Date Medical History PCOS Medical History anxiety Surgical History cleft palate Surgical History PE tubes Surgical History wisdom teeth Hospitalization History see surgical Work [employer] Other Summary Purpose Family History No Family History Records FoundNo Family History Records FoundNo Family History Records FoundNo Family History Records FoundNo Family History Records FoundNo Family History Records FoundNo Family History Records Found Advance Directives No Advanced Directives Records FoundDocuments on File Type Date Recorded 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 Advance Directives and Living Will Documents on File Type Date Recorded 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 Advance Directives and Living Will Reason for Referral Specialty Diagnoses / Procedures Referred By Contac t Referred To Contact Dermatology Diagnoses Rash Claudio Price PA-C [address] [place] [address] [place] [address] Kayleigh Pickard, [address] [place] [address] Referral ID Status Reason Start Date Expiration Date Visits Requested Visits Authorized [id number] Authorized Specialty Services Required/Pat ient's Best Interest 08/02/2021 08/02/2022 1 1 Additional Source Comments INFORMATION SOURCE (unrecogn ized section and content) DATE CREATED AUTHOR 08/27/2020 [facility] DATE CREATED AUTHOR AUTHOR'S ORGANIZ ATION 11/23/2020 [facility] DATE CREATED AUTHOR AUTHOR'S ORGANIZ ATION 12/23/2020 [facility] DATE CREATED AUTHOR AUTHOR'S ORGANIZ ATION 11/12/2021 [facility] DATE CREATED AUTHOR AUTHOR'S ORGANIZ ATION 05/08/2022 [facility] DATE CREATED AUTHOR AUTHOR'S ORGANIZ ATION 06/20/2022 [facility] DATE CREATED AUTHOR AUTHOR'S ORGANIZ ATION 02/03/2024 [facility] Reason for Visit (unrecogniz [...] Patient. 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 Specialty Start Date End Date No, Physician [facility] PCP - General 03/28/20 Claudio Price PA-C [address] [place] [address] [place] [address] PCP - ALEX Attributed Provider - [employer] 01/18/16 05/18/50 [employer] Bl[employer] Relationship Specialty Start Date End Date No, Physician [facility] PCP - General 03/28/20 Claudio Price PA-C [address] [place] [address] [place] [address] PCP - ALEX Attributed Provider - [employer] 01/18/16 05/18/50 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 [facility] [employer] [facility]. provides no warranty or guarantee of the accuracy or completeness of information in this document.
--- NOTE | 2024-03-03 15:45 | XR_ITS ---
The [address] [address] Patient Name: AUDRA CRUZ MRN: [id number] date: 2000 Sex: F Assigned Patient Location: [facility] Current Patient Location: Accession/Order Number: [id number] Exam Date: 03/03/2024 15:51 Report Date: 03/05/2024 07:23 At the request of: JESS LU Procedure: XR lumbar spine 6V w bending EXAMINATION: XR lumbar spine 6V w bending HISTORY: Lumbar Pain With Radiation Down Both Legs COMPARISON: No relevant comparison available. FINDINGS: BONES: Neutral projection demonstrates normal alignment with no spondylolisthesis. There is 10% anterior wedging of the L1 vertebral body, age indeterminate. DISC SPACES: Normal. No significant disc height narrowing, subluxation, or endplate abnormality. PARASPINOUS: Negative. No paraspinous abnormality is seen. OTHER: No dynamic instability with flexion or extension XR/XR lumbar spine 6V w bending IMPRESSION: Minimal anterior wedging of the L1 vertebral body, age indeterminate fractures versus physiologic wedging No dynamic instability Electronically authenticated by: KILLIAN PRINCE Date: 03/05/2024 07:23
== END 2024-03-03 15:40 | disposition home or self-care (01) ==
LOC: RAD 15:40
PROVIDERS: PCP Family Medicine; Visit Provider Physician Assistant
DX: M54.50 Low back pain, unspecified (principal); M79.604 Pain in right leg; M79.605 Pain in left leg
CPT/HCPCS: 72114

== ENCOUNTER 2024-05-23 17:03 | Emergency (ER) | payer OTHER, SELFPAY ==
[2024-05-23 17:17] VITALS: BP 124/87; PULSE 90; O2SAT 99; BMI 36.6
[2024-05-23 17:28] VITALS: O2SAT 99
[2024-05-23] MEDS: EPINEPHRINE HCL PF 1 MG/ML AMPULE 0.3 MG SUBQ (17:53)
[2024-05-23] MEDS: DIPHENHYDRAMINE HCL 50 MG/ML VIAL 25 MG IV (17:55)
[2024-05-23] MEDS: METHYLPREDNISOLONE SOD SUCC PF 125 MG/2 ML VIAL IVP (17:55)
[2024-05-23 18:00] VITALS: PULSE 88; O2SAT 99
--- NOTE | 2024-05-23 18:22 | ED.ALLEREA1 ---
HPI - Allergic Reaction General Chief complaint: Allergic Reaction Stated complaint: Allergic Reaction Time Seen by Provider: 05/23/24 17:09 Source: patient Mode of arrival: walk-in Limitations: no limitations History of Present Illness HPI narrative: pt took mucinex around 4opm today and shortly after developed redness to the face, neck and upper torso. She started to have some sensation of difficulty breathing, possible throat swelling. No prior gu9gnfyp or reaction to mucinex when taken previously. Related Data Home Medications ?Medication ?Instructions ?Recorded ?Confirmed aripiprazole 5 mg tablet 5 mg PO DAILY 02/03/24 02/10/24 levonorgestrel (Mirena) intrauterine 02/03/24 spironolactone 25 mg tablet 25 mg PO DAILY 02/03/24 02/10/24 Allergies Allergy/AdvReac Type Severity Reaction Status Date / Time NSAIDS (Non-Steroidal Allergy Severe Anaphylaxis Verified 05/23/24 17:17 Anti-Inflamma ibuprofen (From Advil) Allergy Anaphylaxis Verified 02/10/24 06:32 metformin AdvReac Diarrhea Verified 05/23/24 17:17 [facility] Medical History (Updated 05/23/24 @ 18:26 by Mesfin Grossman) Panic attacks ?F41.0 - Panic disorder [episodic paroxysmal anxiety] (ICD-10) Anemia ?D64.9 - Anemia, unspecified (ICD-10) Migraine ?G43.909 - Migraine, unspecified, not intractable, without status migrainosus (ICD-10) Dysfunction of both eustachian tubes ?H69.93 - Unspecified Eustachian tube disorder, bilateral (ICD-10) Diarrhea ?R19.7 - Diarrhea, unspecified (ICD-10) GERD (gastroesophageal reflux disease) ?K21.9 - Gastro-esophageal reflux disease without esophagitis (ICD-10) Palpitations ?R00.2 - Palpitations (ICD-10) Postoperative nausea and vomiting ?R11.2 - Nausea with vomiting, unspecified (ICD-10) ?Z98.890 - Other specified postprocedural states (ICD-10) 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 (ICD-10) 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) Mitral valve regurgitation ?I34.0 - Nonrheumatic mitral (valve) insufficiency (ICD-10) Jaw asymmetry ?M26.12 - Other jaw asymmetry (ICD-10) Ear infection ?H66.90 - Otitis media, unspecified, unspecified ear (ICD-10) Cleft palate ?Q35.9 - Cleft palate, unspecified (ICD-10) Tinnitus ?H93.19 - Tinnitus, unspecified ear (ICD-10) Depression ?F32.A - Depression, unspecified (ICD-10) Atrial fibrillation ?I48.91 - Unspecified atrial fibrillation (ICD-10) PCOS (polycystic ovarian syndrome) ?E28.2 - Polycystic ovarian syndrome (ICD-10) Bursitis, foot ?M77.50 - Other enthesopathy of unspecified foot and ankle (ICD-10) Sleep apnea ?G47.30 - Sleep apnea, unspecified (ICD-10) Gastrocnemius equinus ?M62.469 - Contracture of muscle, unspecified lower leg (ICD-10) Anxiety ?F41.9 - Anxiety disorder, unspecified (ICD-10) Dysmenorrhea ?N94.6 - Dysmenorrhea, unspecified (ICD-10) Hearing loss ?H91.90 - Unspecified hearing loss, unspecified ear (ICD-10) Eustachian tube dysfunction ?H69.90 - Unspecified Eustachian tube disorder, unspecified ear (ICD-10) Surgical History (Updated 02/03/24 @ 15:09 by Yara Benavides NP) History of tracheostomy (~1999) ?Z98.890 - Other specified postprocedural states (ICD-10) H/O wisdom tooth extraction ?K08.409 - Partial loss of teeth, unspecified cause, unspecified class (ICD-10) H/O tympanostomy ?Z98.890 - Other specified postprocedural states (ICD-10) H/O palate surgery ?Z98.890 - Other specified postprocedural states (ICD-10) History of ear surgery ?Z98.890 - Other specified postprocedural states (ICD-10) History of mandibular surgery ?Z98.890 - Other specified postprocedural states (ICD-10) Family History (Updated 02/03/24 @ 14:54 by Yara Benavides NP) Other Family history of diabetes mellitus Family history of heart disease Family history of hypertension Social History (Updated 02/10/24 @ 06:36 by Milady Caballero) Within the past year, how often did you have a drink containing alcohol: 2-4 times a month Do you use any of these nicotine containing products: vaping products Nicotine containing products detail: VAPED LAST NIGHT Non-prescribed substance use: denies use 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 afebrile General: slightly anxious. Skin: Warm, dry, no pallor noted. Slightly red skin changes to the face and neck and upper torso. Head: Normocephalic, atraumatic. Neck: Supple, non-tender. Eye: Pupils are equal, round and EOMI. No scleral icterus. Ears, Nose, Mouth, and Throat: no posterior oropharynx erythema or tongue swelling, uvula is mid-line Oral mucosa is moist Cardiovascular: Regular Rate and Rhythm without murmur, gallop or rub. Respiratory: No accessory muscle use or respiratory distress. Lungs are clear to auscultation, no wheezing, rales or rhonchi Musculoskeletal: normal ROM Neurological: A&O x4. No cranial nerve dysfunction observed. No truncal ataxia. Moves all extremities. Sensation intact. Psychiatric: Cooperative and interactive. Normal mood and affect. Constitutional Vital Signs, click to edit/add: Last Vital Signs Pulse 90 05/23/24 17:17 Resp 24 H 05/23/24 17:17 BP 124/87 05/23/24 17:17 Pulse Ox 99 05/23/24 17:28 O2 Del Method Room Air 05/23/24 17:28 Course Vital Signs Vital signs: Vital Signs Pulse Rate 90 05/23/24 17:17 Respiratory Rate 24 H 05/23/24 17:17 Blood Pressure 124/87 05/23/24 17:17 Pulse Oximetry 99 05/23/24 17:17 Oxygen Delivery Method Room Air 05/23/24 17:17 Pulse Rate 90 05/23/24 17:17 Respiratory Rate 24 H 05/23/24 17:17 Blood Pressure 124/87 05/23/24 17:17 Pulse Oximetry 99 05/23/24 17:28 Oxygen Delivery Method Room Air 05/23/24 17:28 MDM - Allergic Reaction MDM Narrative Medical decision making narrative: Patient placed on cosmetic chemist, peripheral IV established, she was given IV Solu-Medrol and IV Benadryl as well as subcutaneous epinephrine. On recheck at 1820, the patient's redness had resolved in her face, neck and upper torso. She had resolution of the sensation of difficulty breathing. Her lungs have been clear prior to treatment and she had no tongue swelling or pharyngeal swelling prior to treatment. Overall she was much improved. The patient was discharged home with a prescription for oral prednisone and instructions to take the prednisone and the Benadryl if she has any return of symptoms. She should return to the emergency department if the symptoms are severe or worrisome in any way. She was instructed to avoid Mucinex Discharge Plan Discharge Chief Complaint: Allergic Reaction Clinical Impression: Allergic reaction Patient Disposition: Home, Self-Care Time of Disposition Decision: 18:26 Prescriptions / Home Meds: No Action aripiprazole 5 mg tablet 5 mg PO DAILY spironolactone 25 mg tablet 25 mg PO DAILY Mirena 21 mcg/24 hr (8 yrs) 52 mg intrauterine device intrauterine Print Language: [place] Instructions: General Allergic Reaction (ED) Referrals: ZAN MCCLENDON [Primary Care Provider] - 1 week
[2024-05-23 18:28] VITALS: BP 113/71; PULSE 80; O2SAT 99
== END 2024-05-23 18:49 | disposition home or self-care (01) ==
PROVIDERS: Emergency Provider Emergency Medicine; PCP Family Medicine
DX: T78.40XA Allergy, unspecified, initial encounter (principal); X58.XXXA Exposure to other specified factors, initial encounter; F17.290 Nicotine dependence, other tobacco product, uncomplicated
CPT/HCPCS: 96372; 96374; 96375; 99285; J1200; J2919

== ENCOUNTER 2024-08-04 17:10 | Outpatient (REF) | payer OTHER, SELFPAY ==
--- OUTSIDE RECORDS SUMMARY | 2024-08-04 17:20 | XMS_ITS | CCD ---
Author Organization [facility] Care Team Providers Care Survey Technologist Name Role Phone JCFILIBERTO NICKOLAS Referring Unavailable JESSICAANISHA FILIBERTO NICKOLAS Admitting Unavailable NO, PHYSICIAN Primary Care Unavailable KILLIAN CURIEL Attending Unavailable REGINASHARMAINE HARVEY Consulting Unavailable KILLIAN CURIEL Admitting Unavailable KILLIAN [...] Care Provider Unavailabl Claudio Darby PA-C Unavailable HELDER ALEXANDER Referring Unava ilable NO, PHYSICIAN [...] Unavailable Kamala Parker Unavailable Moni Cain Unavailable Gwendolyn Winters Primary Care Provider Zan Mcclendon MD Unavailable Zan Mcclendon MD Primary Care Provider [phone] GWENDOLYN LU Referring Unavailable ZAN MCCLENDON Primary Care Unavailable Gwendolyn Lu Primary Care Unavailable Cristhian Laguerre Attending Unavailable Cristhian Laguerre Admitting Unavailable SORAIDA OWENS Attending Unavailable GWENDOLYN LU Referring Unavailable ERICKA TOBIAS Attending Unavailable HEMGWENDOLYN RUDD Attending Unavailable TIMMISJASIEL Attending Unavailable GERTRUDIS CHINO Attending Unavailable JASIEL OAKES H Attending Unavailable GWENDOLYN LU Referring Unavailable HEMGWENDOLYN RUDD Attending Unavailable TIMMIS, JASIEL H Attending Unavailable ARMANDOGERTRUDIS A Attending Unavailable TIMMISJASIEL H Attending Unavailable GWENDOLYN LU Attending Unavailable Allergies Allergy Classification Reported Allergen(s) Allergy Type Date of Onset Reaction(s) Facility (20 sources) Non-steroidal anti-inflammato ry agent; Translations: [NSAIDS (NON-STEROIDAL ANTI-INFLAMMATO RY DRUG)] Propensity to adverse reactions to drug 1 Anaphylaxis [facility] (9 sources) Non-steroidal anti-inflammato ry agent Propensity to adverse reactions to drug 1 Anaphylaxis [facility] (20 sources) Ibuprofen Drug Allergy 3 Anaphylaxis [facility] (20 sources) metFORMIN Drug Allergy 4 GI intolerance [facility] Work Phone: (1 source) NSAIDs Drug allergy (disorder) 4 [facility] Rep[facility] Medications Current Medications Medication Drug Class(es) Dates Sig (Normalized) Sig (Original) [id number] actuat albuterol 0.09 mg/actuat metered dose [...] Inhalation every 4 hrs Dec, Active ARIPiprazole 5 mg oral tablet (20 sources) Atypical Antipsychotic Start: 12-02-2023 take 1 tablet by mouth once daily ARIPiprazole (Abilify) 5 MG tablet Indications: Major depressive disorder, recurrent, moderate (CMS/HCC) Take 1 tablet (5 mg) by mouth Daily 100 tablet 3 12/02/2023 Active ARIPiprazole 2 M G Oral for 90 Days Active End: 05-01-2022 [...] Active Start: 03-07-2016 take 1 capsule by [facility] three times daily as needed Tessalon Perles [...] 4 MG as directed Orally Dec, Active ondansetron 4 mg oral tablet (3 sources) Serotonin-3 Receptor Antagonist Start: 02-11-2024 End: 02-18-2024 take 1 tablet by mouth every six hours for nausea ondansetron (Zofran) 4 MG tablet Indications: Nausea and vomiting, unspecified vomiting type Take 1 tablet (4 mg) by mouth every 6 (six) hours if needed for nausea or vomiting for up to 7 days 20 tablet 02/11/2024 02/18/2024 Active Start: 11-12-2021 End: 05-01-2022 apply 1 tablet topically every eight hours as needed for nausea ondansetron (ZOFRAN-ODT) 4 MG disintegrating tablet Indications: Nausea and vomiting, unspecified vomiting type Dissolve 1 (one) tablet (4 mg total) on top of tongue every 8 (eight) hours as needed for nausea . 9 tablet 0 11/12/2021 05/01/2022 Discontinued propranolol hydrochloride 10 mg oral tablet (10 sources) beta-Adrenergic Nenita take 1 tablet by mouth twice daily propranoloL (INDERAL) 10 MG tablet Take 1 (one) tablet (10 mg total) by mouth 2 (two) times a day . 0 Active traMADol hydrochloride 50 mg oral tablet (2 sources) Opioid Agonist Start: 05-04-20 End: 05-09-20 take 1 tablet by mouth every six hours for pain traMADol (Ultram) 50 MG tablet Indications: Spinal stenosis of lumbar region with neurogenic claudication Take 1 tablet (50 mg) by mouth every 6 (six) hours if needed for severe pain for up to 5 days 20 tablet 05/04/2024 05/09/2024 Active Completed/Discontinued Medications Medication Drug Class(es) Dates Sig (Normalized) Sig (Original) amoxicillin 875 mg oral tablet (2 sources) Penicillin-class Antibacterial Start: 03-07-2016 take 1 tablet by mouth every twelve hours Amoxicillin 875 MG 1 tablet Orally every 12 hrs for 10 day(s) Feb, Not-Taking baclofen 10 mg oral tablet (5 sources) gamma-Aminobutyric Acid-ergic Agonist Start: 03-03-2024 End: 03-17-2024 take 1 tablet by mouth at bedtime baclofen (Lioresal) 10 MG tablet Indications: Lumbar pain with radiation down both legs Take 1 tablet (10 mg) by mouth at bedtime for 7 days 7 tablet 03/03/2024 03/17/2024 Discontinued (Therapy completed) cefTRIAXone (2 sources) Cephalosporin Antibacterial Start: 05-11-2014 [...] 30 g 0 07/05/2021 05/01/2022 Discontinued levonorgestrel 0.311671 mg/hr intrauterine system (20 sources) Progestin, Progestin-containi ng Intrauterine Device Start: [...] (8 yrs) 52 mg IUD 1 each Levonorgestrel ( Mirena, 52 MG,) 20 MCG/DAY intrauterine device 1 each by Intrauterine route See administration instructions Will remain in place for 7 years, to be removed by PATIENT SERVICES TECHNICIAN Active Loratadine / Pseudoephedrine (2 sources) alpha-Adrenergic Agonist Start: 04-18-2016 take 5-120 mg by mouth every twelve hours as needed Loratadine-Pseudoephedrine ER 5-120 MG 1 tablet as needed Orally every 12 hrs for 14 days Apr, Not-Taking phentermine hydrochloride 37.5 mg oral tablet (4 sources) Sympathomimetic Amine Anorectic End: 05-01-2022 take 1 tablet by mouth once daily in the morning phentermine (ADIPEX-P) 37.5 mg tablet Take 37.5 mg by mouth every morning . 0 05/01/2022 Discontinued predniSONE 10 mg oral tablet (7 sources) Start: 03-03-2024 End: 03-17-2024 take 1 tablet by mouth three times daily, then take 1 tablet by mouth twice daily, then take 1 tablet by mouth once daily predniSONE (Deltasone) 10 MG tablet Indications: Lumbar pain with radiation down both legs Take 1 tablet (10 mg) by mouth 3 (three) times a day for 3 days, THEN 1 tablet (10 mg) 2 (two) times a day for 3 days, THEN 1 tablet (10 mg) Daily for 3 days. 18 tablet 03/03/2024 03/17/2024 Discontinued (Therapy completed) Start: 03-07-2016 predniSONE 20 MG 2 tablets [...] 1 tablet Orally Once a day Not-Taking spironolactone 25 mg oral tablet (7 sources) Aldosterone Antagonist Start: 12-02-2023 End: 03-03-2024 take 1 tablet by mouth once daily spironolactone (Aldactone) 25 MG tablet Indications: PCOS (polycystic ovarian syndrome) Take 1 tablet (25 mg) by mouth Daily 100 tablet 3 12/02/2023 03/03/2024 Discontinued (Ineffective) Problems Active Problems Problem Classification Problem Date Documented Da te Episodic/Chronic Abdominal pain (6 sources) Right upper quadrant pain; Translations: [Pain in female pelvis] Onset: 12-14-2020 Episodic Acute bronchitis (1 source) Acute bronchitis, unspecified Episodic Allergic reactions (20 sources) Allergy to food; Translations: [Allergy to other foods] Onset: 03-25-2023 03-25-2023 Episodic Anxiety disorders (20 sources) Generalized anxiety disorder; Translations: [Generalized anxiety disorder] Onset: 10-24-2022 10-24-2022 Chronic Cardiac dysrhythmias (20 sources) Paroxysmal atrial fibrillation; Translations: [Paroxysmal atrial fibrillation] Onset: 03-25-2023 03-25-2023 Chronic Contraceptive and procreative management (10 sources) Patient encounter status; Translations: [Encounter for insertion of intrauterine contraceptive device] Onset: 05-22-2022 Episodic Genitourinary symptoms and ill-defined conditions (2 sources) Unspecified abnormal findings in urine; Translations: [Unspecified abnormal findings in urine] Onset: 04-03-2022 Episodic Immunizations and screening for infectious disease (9 sources) Vaccination needed; Translations: [Encounter for immunization] Onset: 05-22-2022 Episodic Menstrual disorders (20 sources) Dysmenorrhea; Translations: [Dysmenorrhea, unspecified] Onset: 10-24-2022 10-24-2022 Chronic Mood disorders (20 sources) Moderate recurrent major depression; Translations: [Major depressive disorder, recurrent, moderate] Onset: 03-25-2023 03-25-2023 Chronic Mycoses (1 source) Mycosis; Translations: [Unspecified mycosis] Episodic Nausea and vomiting (6 sources) Nausea; Translations: [Nausea and vomiting] Onset: 12-05-2020 Episodic Other connective tissue disease (1 source) Achilles tendinitis; Translations: [Achilles tendinitis, unspecified leg] Episodic Other connective tissue disease (1 source) Pain in right leg; Translations: [Pain in right leg] Onset: 03-15-2024 Episodic Other connective tissue disease (1 source) Pain in left leg; Translations: [Pain in left leg] Onset: 03-15-2024 Episodic Other ear and sense organ disorders (20 sources) Mixed conductive and sensorineural hearing loss of right ear; Translations: [Mixed conductive and sensorineural hearing loss, unilateral, right ear, with unrestricted hearing on the contralateral side] Onset: 10-24-2022 10-24-2022 Chronic Other ear and sense organ disorders (20 sources) Mixed conductive AND sensorineural hearing loss; Translations: [Mixed conductive and sensorineural hearing loss, unilateral, right ear with restricted hearing on the contralateral side] Onset: 10-24-2022 10-24-2022 Chronic Other ear and sense organ disorders (2 sources) Hearing loss of left ear; Translations: [Other specified hearing loss, left ear] 03-17-2024 Chronic Other ear and sense organ disorders (3 sources) Bilateral hearing loss; Translations: [Conductive hearing loss, unilateral, right ear with restricted hearing on the contralateral side] 04-21-2024 Chronic Other ear and sense organ disorders (1 source) Conductive hearing loss, bilateral; Translations: [Conductive hearing loss, bilateral] 02-02-2024 Chronic Other endocrine disorders (20 sources) Polycystic ovary syndrome; Translations: [Polycystic ovarian syndrome] Onset: 03-25-2023 Chronic Other endocrine disorders (2 sources) Polycystic [...] female genital tract] Onset: 04-03-2022 Episodic Other fractures (1 source) Compression fracture of lumbar spine; Translations: [Wedge compression fracture of first lumbar vertebra, initial encounter for closed fracture] 03-15-2024 Episodic Other fractures (1 source) Wedge compression fracture of first lumbar vertebra, initial encounter for closed fracture; Translations: [Wedge compression fracture of first lumbar vertebra, initial encounter for closed fracture] Onset: 03-15-2024 Episodic Other gastrointestinal disorders (2 sources) Abdominal wind pain; Translations: [Gas pain] 06-23-2024 Episodic Other inflammatory condition of skin (1 source) Pityriasis rosea; Translations: [Pityriasis rosea] Chronic Other non-traumatic joint disorders (1 source) Pain in right hip; Translations: [Pain in right hip] Onset: 04-27-2024 Episodic Other non-traumatic joint disorders (1 source) Pain in left hip; Translations: [Pain in left hip] Onset: 04-27-2024 Episodic Other nutritional; endocrine; and metabolic disorders (20 sources) Body mass index 30+ - obesity; Translations: [Obesity, unspecified] Onset: 03-25-2023 03-25-2023 Chronic Other screening for suspected conditions (not mental disorders or infectious disease) (12 sources) Encounter for screening for malignant neoplasm of cervix; Translations: [ test negative] Onset: 12-19-2020 Episodic Other skin disorders (1 source) Eruption; Translations: [Rash and other nonspecific skin eruption] Episodic Other upper respiratory infections (2 sources) Acute pharyngitis, unspecified; Translations: [Acute upper respiratory infection, unspecified] Episodic Residual codes; unclassified (20 sources) Sleep apnea; Translations: [Sleep apnea, unspecified] Onset: 03-25-2023 03-25-2023 Chronic Screening and history of mental health and substance abuse codes (2 sources) Personal history of other mental and behavioral disorders; Translations: [Personal history of other mental and behavioral disorders] Onset: 04-03-2022 Episodic Spondylosis; intervertebral disc disorders; other back problems (18 sources) Degeneration of lumbar intervertebral disc; Translations: [Degeneration of intervertebral disc of lumbar region with discogenic back pain and lower extremity pain] Onset: 03-22-2024 03-22-2024 Chronic Spondylosis; intervertebral disc disorders; other back problems (20 sources) Low back pain; Translations: [Lumbar pain with radiation down both legs] Onset: 03-22-2024 03-03-2024 Episodic Unclassified (1 source) Thrombocytosis, unspecified; Translations: [Thrombocytosis, unspecified] Onset: 04-03-2022 Unclassified (1 source) Cough, unspecified; Translations: [Cough, unspecified] Onset: 11-12-2021 Unclassified (2 sources) Low back pain, unspecified; Translations: [Low back pain, unspecified] Onset: 03-15-2024 Past or Other Problems Problem Classification Problem Date Documented Date Episodic/Chronic Other connective tissue disease (20 sources) Deformity of lower limb; Translations: [Contracture of muscle, left lower leg] Onset: 10-31-2022 10-31-2022 Episodic Other connective tissue disease (20 sources) Retrocalcaneal bursitis of left foot; Translations: [Other enthesopathy of left foot and ankle] Onset: 03-25-2023 03-25-2023 Episodic Other connective tissue disease (20 sources) Muscle pain; Translations: [Myalgia, unspecified site] Onset: 03-02-2023 03-25-2023 Episodic Other ear and sense organ disorders (20 sources) Asymmetrical sensorineural hearing loss; Translations: [Sensorineural hearing loss, bilateral] Onset: 10-24-2022 Resolved: 03-25-2023 03-25-2023 Chronic Other ear and sense organ disorders (20 sources) Mixed conductive and sensorineural hearing loss, bilateral; Translations: [Mixed conductive and sensorineural hearing loss, bilateral] Onset: 10-24-2022 Resolved: 03-25-2023 03-25-2023 Chronic Other ear and sense organ disorders (20 sources) Tinnitus; Translations: [Tinnitus, unspecified ear] Onset: 06-26-2017 03-25-2023 Episodic Otitis media and related conditions (20 sources) Dysfunction of bilateral eustachian tubes; Translations: [Unspecified Eustachian tube disorder, bilateral] Onset: 12-01-2023 12-01-2023 Episodic Unclassified (1 source) Thrombocytosis, unspecified; Translations: [Thrombocytosis, unspecified] Onset: 04-03-2022 Unclassified (1 source) Cough, unspecified; Translations: [Cough, unspecified] Onset: 11-12-2021 Unclassified (1 source) Contact with and (suspected) exposure to covid-19 Z20.822 Results Test Name Value Interpretation Reference Range Facility XR hip BI w [id number] 04-27-20 XR hip BI w PEL1V [facility] [address] XRay Report Signed Patient: Esha Shannon MR#: [id number] 2 : 2000 Acct:[id number] Age/Sex: 23 / F ADM Date: 04/27/24 Loc: [facility] Room: Type: [facility] Attending Dr: Cristhian Laguerre DO Copies to: Cristhian Laguerre DO Ordering Provider: Cristhian Laguerre DO Date of Service: 04/27/24 XR/XR hip BI w PEL1V: M25.551 - Pain in right hip XR hip BI w PEL1V 04/27/2024 8:16 AM SIGNS AND SYMPTOMS: Bilateral hip pain PROTOCOL: Frontal radiograph the pelvis with frontal and frog-leg views of the bilateral hips COMPARISON: None FINDINGS: There is an intrauterine device in the pelvis. There is mild prominence of the femoral head neck junctions, right greater than left. There is os acetabuli on the right. This suggests cavitation femoroacetabular impingement and possible underlying labral pathology. The joint space is grossly preserved. The bony ring of the pelvis is intact. The sacroiliac joints are preserved. XR/XR hip BI w PEL1V IMPRESSION: There is mild prominence of the femoral head neck junctions, right greater than left. There is os acetabuli on the right. This suggests cavitation femoroacetabular impingement and possible underlying labral pathology. Impression dictated by: Sage Irizarry M.D.04/27/2024 11:43 AM Dictation Location: [place] [address] Transcribed By: WILLIAM 04/27/24 1143 Dictated By: Sage Irizarry II, MD 04/27/24 1142 Signed By: 04/27/24 1143 Normal [facility] XR lumbar spine 6V w bending on 04-27-2024 XR lumbar spine 6V w bending [facility] [place] [address] [place] [address] XRay Report Signed Patient: Esha Shannon MR#: [id number] 2 : 2000 Acct:[id number] Age/Sex: 23 / F ADM Date: 04/27/24 Loc: [facility] Room: Type: [facility] Attending Dr: Cristhian Laguerre DO Copies to: Cristhian Laguerre DO Ordering Provider: Cristhian Laguerre DO Date of Service: 04/27/24 XR/XR lumbar spine 6V w bending: M54.50 - Low back pain, unspecified XR lumbar spine 6V w bending 04/27/2024 8:16 AM SIGNS AND SYMPTOMS: Back pain, bilateral hip pain, history of L1 fracture PROTOCOLS: Frontal, lateral, oblique, and flexion-extension views of the lumbar spine COMPARISON: None FINDINGS: There is anterior wedging of the L1 body similar to the prior exam. There is mild disc height loss at L5-S1. Facet hypertrophy is present at L4-5 and L5-S1. Flexion and extension view show no pathologic movement. The sacrum and sacroiliac joints are normal. There is an intrauterine device in the pelvis. XR/XR lumbar spine 6V w bending IMPRESSION: No fracture or subluxation. No pathologic movement. There is anterior wedging of the L1 body similar to the prior exam. Degenerative changes are noted in the lower lumbar spine. Impression dictated by: Sage Irizarry M.D.04/27/2024 11:42 AM Dictation Location: [place] [address] Transcribed By: [facility] 04/27/24 1142 Dictated By: Sage Irizarry II, MD 04/27/24 1140 Signed By: 04/27/24 1142 Normal [facility] XR pre/post mri xrayon 04-27 XR pre/post mri xray [facility] [address] MRI Report Signed Patient: Esha Shannon MR#: [id number] 2 : 2000 Acct:[id number] Age/Sex: 23 / F ADM Date: 04/27/24 Loc: [facility] Room: Type: [facility] Attending Dr: Cristhian Laguerre DO Copies to: Cristhian Laguerre DO Ordering Provider: Cristhian Laguerre DO Date of Service: 04/27/24 MR/MR thoracic spine wo con: M54.14 - Radiculopathy, thoracic region ([id number]) XR/XR pre/post mri xray: THORACIC MRI MR thoracic spine wo con, XR pre/post mri xray 04/27/2024 7:08 AM SIGNS AND SYMPTOMS: Mid to low back pain radiating down his lower legs with numbness and tingling, left greater than right PROTOCOL: Multiplanar multisequence MR images of the thoracic spine without contrast. Frontal and lateral radiographs of the thoracic spine. COMPARISON: None. FINDINGS: Radiographs of the thoracic spine: There is mild disc height loss in the lower thoracic spine. The intervertebral discs are preserved otherwise. The vertebral body heights are preserved. No fracture or subluxation. MRI thoracic spine: There is a marker posteriorly at T3-T4 intervertebral disc level. The bones of the thoracic spine are in anatomic alignment. There is preservation of vertebral body heights and intervertebral disc spaces. The marrow signal is within normal limits. No epidural or paraspinous fluid collection is appreciated. The visualized paraspinous soft tissues are within normal limits. At T1-T2: There is a normal disc, central canal, and neural foramen. At T2-T3: There is a normal disc, central canal, and neural foramen. At T3-T4: There is a normal disc, central canal, and neural foramen. At T4-T5: There is a normal disc, central canal, and neural foramen. At T5-T6: There is a normal disc, central canal, and neural foramen. At T6-T7: There is a normal disc, central canal, and neural foramen. At T7-T8: There is a normal disc, central canal, and neural foramen. At T8-T9: There is a normal disc, central canal, and neural foramen. At T9-T10: Bilateral facet degenerative changes are present. There is mild spinal canal stenosis with mild bilateral neural foraminal narrowing. At T10-T11: Facet hypertrophy is present bilaterally contributing to mild to moderate spinal canal stenosis with mild bilateral neural foraminal narrowing. At T11-T12: There is a broad-based disc bulge with facet hypertrophy and ligamentum flavum thickening. There is mild to moderate spinal canal stenosis with mild bilateral neural foraminal stenosis. At T12-L1: There is a broad-based disc bulge with facet hypertrophy. There is mild/moderate spinal canal stenosis with mild bilateral neural foraminal narrowing. MR/MR thoracic spine wo con IMPRESSION: No cord compression or cord signal abnormality. At T9-T10: Bilateral facet degenerative changes are present. There is mild spinal canal stenosis with mild bilateral neural foraminal narrowing. At T10-T11: Facet hypertrophy is present bilaterally contributing to mild to moderate spinal canal stenosis with mild bilateral neural foraminal narrowing. At T11-T12: There is a broad-based disc bulge with facet hypertrophy and ligamentum flavum thickening. There is mild to moderate spinal canal stenosis with mild bilateral neural foraminal stenosis. At T12-L1: There is a broad-based disc bulge with facet hypertrophy. There is mild/moderate spinal canal stenosis with mild bilateral neural foraminal narrowing. Impression dictated by: Sage Irizarry M.D.04/27/2024 11:40 AM Dictation Location: [place] [address] Transcribed By: [facility] 04/27/24 1140 Dictated By: Sage Irizarry II, MD 04/27/24 1133 Signed By: 04/27/24 1140 Normal [facility] Auditory function testson Right Ear: Mild sensorineural hearing loss at 250 Hz and from 1K - 2K Hz. Mild to profound conductive hearing loss above 2K Hz. Left Ear: Mild sensorineural hearing loss at 250 Hz and from 1K - 2K Hz rising to normal thresholds from 3K Hz - 4K Hz. Mild to moderate hearing loss above 4K Hz [facility] LUMBAR SPINE WO CONTRAST on 03-19-2024 MRI LUMBAR SPINE WO CONTRAST EXAMINATION: MRI OF THE LUMBAR SPINE WITHOUT CONTRAST, 03/15/2024 4:32 pm TECHNIQUE: Multiplanar multisequence MRI of the lumbar spine was performed without the administration of intravenous contrast. COMPARISON: None. HISTORY: ORDERING SYSTEM PROVIDED HISTORY: Lumbar pain with radiation down both legs FINDINGS: BONES/ALIGNMENT: Vertebral body heights are maintained. There is age-appropriate bone marrow signal. There is multilevel degenerative disc disease with loss of disc signal. There is no spondylolisthesis. SPINAL CORD: The conus terminates normally. SOFT TISSUES: No paraspinal mass identified. L1-L2: There is a circumferential disc bulge with facet and ligamentous hypertrophy. There is canal stenosis measuring 7 mm in AP dimension. There is no significant foraminal narrowing. L2-L3: There is a circumferential disc bulge with facet hypertrophy. There is canal stenosis measuring 9 mm in AP dimension. There is no foraminal narrowing. L3-L4: There is a circumferential disc bulge with midline posterior annular tear. There is canal stenosis measuring 6 mm in AP dimension. There is narrowing of the lateral recesses. There is no foraminal narrowing. L4-L5: There is a circumferential disc bulge with small midline disc protrusion. There is canal stenosis measuring 6 mm in AP dimension. There is narrowing of the lateral recesses. There is no significant foraminal narrowing. L5-S1: There is a circumferential disc bulge with small midline disc protrusion. There is facet hypertrophy. There is no canal stenosis or foraminal narrowing. IMPRESSION: Multilevel degenerative change with canal stenosis most pronounced at L3-4 and L4-5. Lateral recess narrowing and foraminal narrowing as described above. Interpreted by: Leon August MD Signed by: Leon August MD 03/19/24 Final result Normal [facility] ALL CBC WITH AUTO DIFFon BASOPHILS ABSOLUTE AUTO 0.1 [facility] Basophils/100 WBC (Bld) 0.5 % 0.2 - 2.0 % [facility] Eosinophils/100 WBC (Bld) 1.9 % 0.9 - 7.0 % [facility] Erythrocyte distribution width (RBC) [Ratio] 12.2 % 11.0 - 15.0 % [facility] Hematocrit (Bld) [Volume fraction] 42.2 % 36.0 - 48.0 % [facility] (Bld[facility] [Mass/Vol] 14.0 g/dL 12.0 - 16.0 g/dL [facility] IMMATURE GRANULOCYTES ABS AUTO 0.04 High [facility] Immature granulocytes/100 WBC (Bld) 0.4 % 0.0 - 0.5 % [facility] Interpretation and review of laboratory results Abnormal [facility] LYMPHOCYTES ABSOLUTE AUTO 2.6 [facility] Lymphocytes/100 WBC (Bld) 24.1 % 20.5 - 60.0 % [facility] MCH (RBC) [Entitic mass] 30.2 pg 26.7 - 34.0 pg [facility] MCHC (RBC) [Mass/Vol] 33.2 g/dL 29.9 - 35.2 g/dL [facility] MCV (RBC) [Entitic vol] 91.1 fL 81.0 - 99.0 fL [facility] MONOCYTES ABSOLUTE AUTO 0.7 [facility] Monocytes/100 WBC (Bld) 6.6 % 1.7 - 12.0 % [facility] NEUTROPHILS ABSOLUTE AUTO 7.2 High [facility] Neutrophils/100 WBC (Bld) 66.5 % 43.0 - 75.0 % [facility] Platelet mean volume (Bld) [Entitic vol] 9.6 fL 9.5 - 13.5 fL [facility] EO # 0.2 [facility] TB PLT 369 [facility] e [facility] RBC 4.63 [facility] TB WBC 10.8 [facility] Auditory function testson Right Ear: Mild hearing loss from 250 Hz - 4K Hz. Profound hearing loss above 4K Hz Left Ear: Mild hearing loss from 250 Hz - 3K Hz. Moderate hearing loss above 4K Hz [facility] COVID/FLU RT-PCRon 3 SARS-CoV-2 (COVID-19) RNA MODESTA+probe Ql (Unsp spec) Negative [facility] [employer] Other COVID/FLU RT-PCR Negative [facility] [employer] Other COVID Quick Testingon 2022 Result Negative [facility] [employer] Other Quick Strepon 10-31-2022 S. pyogenes Org specific cx Ql (Throat) Negative [facility] [employer] Other Quick Strep [facility] [employer] Other Chlamydia/Gonorrhoeae Amplif ied RNAOrdered By: Tiffany Abbasi on 05-23-2022 C. trachomatis rRNA MODESTA+probe Ql (Vag fld) Negative Negative [facility] N. gonorrhoeae rRNA MODESTA+probe Ql (Vag fld) Negative Negative [facility] No Panel InformationOrdered By: Tiffany Abbasi on 05-23-2022 Interpretation and review of laboratory results Normal [facility] Trichomonas vaginalis Amplif ied RNAon 05-23-2022 T. vaginalis rRNA MODESTA+probe Ql (Vag fld) Negative [facility] HCG ( test) Ql (U)O rdered By: Erin Cottrell on 05-22-2022 Internal Control Pass [facility] Interpretation and review of laboratory results Normal [facility] Laboratory - Chemistry and C hemistry - challengeOrdered By: Erin Cottrell on 05-22-2022 HCG ( test) Ql (U) Negative Negative [facility] PELVIC TRANSABDOMINAL AND TRANSVAGINAL WITH COLOR [...] FriApr 03, 2022 2:48:51 PM EST Normal [facility] Comment on above: Order Comment: Injur [...] FriNov 12, 2021 11:20:08 AM EDT Normal [facility] Comment on above: Order Comment: Injur y/Trauma or Illness?:Illness/Other How long have you had these symptoms (acute/chronic)?:Acute Reason for exam?:cough sob History of cancer?:no Surgeries, chemotherapy, or radiation?:no Type of Exam?:Initial Additional signs and symptoms?:tested + for covid last week COVID-19, MOLECULARon 2020 INTERNAL CONTROL (DHALIWAL ID) Pass Normal [facility] SARS-CoV-2 (COVID-19) Ab IA Ql Not detected Normal Not Detected [facility] PAP ACOG PANEL 3: 21 to 28on 12-22-2020 . . Normal [facility] Comment on above: Result Comment: Perf ormed at: WB Performed By: #### [id number] #### [facility] [address] [place], [place] [id number] Danaewilmer Snow Age Gdln ACOG Testing - Normal [facility] Comment on above: Performed By: #### [id number] #### [facility] [address] [address] Danae Snow Chlamydia, Nuc. Acid Amp Negative Normal Negative [facility] Comment on above: Result Comment: Perf ormed at: =G Performed By: #### [id number] #### [facility] [address] [id number] Danae Snow DIAGNOSIS: Comment Normal [facility] Comment on above: Result Comment: NEGA TIVE FOR INTRAEPITHELIAL LESION OR MALIGNANCY. CELLULAR CHANGES ASSOCIATED WITH INFLAMMATION ARE PRESENT. THIS SPECIMEN WAS RESCREENED PART OF OUR PATIENT CONSUMER MARKETER PROGRAM. Performed at: WB Performed By: #### [id number] #### [facility] [address] [address] Danaewilmer Snow Gonococcus, Nuc. Acid Amp Negative Normal Negative [facility] Comment on above: Result Comment: Perf ormed at: =G Performed By: #### [id number] #### [facility] [address] [place], [place] [id number] Danae Snow Methodology: Comment Normal [facility] Comment on above: Result Comment: This liquid based ThinPrep(R) pap test was screened with the use of an image guided system. Performed at: WB Performed By: #### [id number] #### [facility] [address] [place] [address] Danae Snow Note: Comment Normal [facility] Comment on above: Result Comment: The Pap smear is a screening test designed to aid in the detection of premalignant and malignant conditions of the uterine cervix. It is not a diagnostic procedure and should not be used as the sole means of detecting cervical cancer. Both false-positive and false-negative reports do occur. . Performed at: WB Performed By: #### [id number] #### [facility] [address] [place] [address] Danae Snow Performed by: Comment Normal [facility] Comment on above: Result Comment: Santos Vuong, Television Cable Installer (ASCP) Performed at: WB Performed By: #### [id number] #### [facility] [address] [place] [address] [facility] QC reviewed by: Comment Normal [facility] Comment on above: Result Comment: Elijah Ann, Supervisory Television Cable Installer (ASCP) Performed at: WB Performed By: #### [id number] #### [facility] [address] [place], [place] [address] Reflex Criteria: Comment Normal [facility] Comment on above: Result Comment: The HPV DNA reflex criteria were not met with this specimen result therefore, no HPV testing was performed. . Performed at: WB Performed By: #### [id number] #### [facility] [address] [place] [address] Danae Gwendolyn Specimen adequacy: Comment Normal [facility] Comment on above: Result Comment: Sati sfactory for evaluation. Endocervical and/or squamous metaplastic cells (endocervical component) are present. Performed at: WB Performed By: #### [id number] #### [facility] [address] [place] [address] Danae Gwendolyn US SINGLE QUAD RT UPPERon US SINGLE [...] YOUSIF ARIAS Date: 2020-12-05 13:58 [facility] Basophils (Bld) [#/Vol] 0.04 10*3/uL Normal <=0.2 [facility] Comment on above: Performed By: #### D DIMR, TNIH, CBC, COMPH #### [facility] [address] [place] [address] Basophils/100 WBC (Bld) 0.4 % Normal [facility] Comment on above: Performed By: #### D DIMR, TNIH, CBC, COMPH #### [facility] [address] [place] [address] Eosinophils (Bld) [#/Vol] 0.24 10*3/uL Normal <=0.60 [facility] [employer] [facility] Comment on above: Performed By: #### D DIMR, TNIH, CBC, COMPH #### [facility] [address] [place] [address] Eosinophils/100 WBC (Bld) 2.5 % Normal [facility] Comment on above: Performed By: #### D DIMR, TNIH, CBC, COMPH #### [facility] [address] [place] [address] Hematocrit (Bld) [Volume fraction] 40.3 % Normal 35.0-45.0 [facility] Comment on above: Performed By: #### D DIMR, TNIH, CBC, COMPH #### [facility] [address] [place] [address] Hemoglobin (Bld) [Mass/Vol] 13.1 g/dL Normal 11.8-15.5 [facility] Comment on above: Performed By: #### D DIMR, TNIH, CBC, COMPH #### [facility] [address] [place] [address] Immature granulocytes (Bld) [#/Vol] 0.02 10*3/uL Normal 0.00-0.10 [facility] Comment on above: Performed By: #### D DIMR, TNIH, CBC, COMPH #### [facility] [address] [place] [address] Immature granulocytes/100 WBC (Bld) 0.2 % Normal [facility] Comment on above: Performed By: #### D DIMR, TNIH, CBC, COMPH #### [facility] [address] [place] [address] Lymphocytes (Bld) [#/Vol] 2.71 10*3/uL Normal 1.00-4.50 [facility] Comment on above: Performed By: #### D DIMR, TNIH, CBC, COMPH #### [facility] [address] [place] [address] Lymphocytes/100 WBC (Bld) 28.1 % Normal [facility] Comment on above: Performed By: #### D DIMR, TNIH, CBC, COMPH #### [facility] [address] [place] [address] MCH (RBC) [Entitic mass] 27.9 pg Normal 27.0-34.0 [facility] Comment on above: Performed By: #### D DIMR, TNIH, CBC, COMPH #### [facility] [address] [place] [address] MCHC (RBC) [Mass/Vol] 32.5 g/dL Normal 31.0-36.0 [facility] Comment on above: Performed By: #### D DIMR, TNIH, CBC, COMPH #### [facility] [address] [place] [address] MCV (RBC) [Entitic vol] 85.9 fL Normal 81.0-100.0 [facility] Comment on above: Performed By: #### D DIMR, TNIH, CBC, COMPH #### [facility] [address] [place] [address] Monocytes (Bld) [#/Vol] 0.66 10*3/uL Normal 0.10-0.80 [facility] Comment on above: Performed By: #### Torres DIMR, TNIH, CBC, COMPH #### [facility] [address] [place] [address] MONOS 6.8 % Normal [facility] Comment on above: Performed By: #### D DIMR, TNIH, CBC, COMPH #### [facility] [address] [place] [address] Neutrophils (Bld) [#/Vol] 5.97 10*3/uL Normal 1.50-7.50 [facility] Comment on above: Performed By: #### D DIMR, TNIH, CBC, COMPH #### [facility] [address] [place] [address] Platelet mean volume (Bld) [Entitic vol] 9.8 fL Normal 8.5-13.[address] [facility] Comment on above: Performed By: #### D DIMR, TNIH, CBC, COMPH #### [facility] [address] [place] [address] Platelets (Bld) [#/Vol] 362 10*3/uL Normal 150-400 [facility] Comment on above: Performed By: #### Torres DIMR, TNIH, CBC, COMPH #### [facility] [address] [place] [address] RBC (Bld) [#/Vol] 4.69 10*6/uL Normal 3.80-5.10 [facility] Comment on above: Performed By: #### Torres DIMR, TNIH, CBC, COMPH #### [facility] [address] [place] [address] RDW (STD DEVIATION) 43.9 fL Normal 38.0-48.0 [facility] Comment on above: Performed By: #### Torres DIMR, TNIH, CBC, COMPH #### [facility] [address] [place] [address] SEGS 62.0 % Normal [facility] Comment on above: Performed By: #### Torres DIMR, TNIH, CBC, COMPH #### [facility] [address] [place], [place] [address] WBC (Bld) [#/Vol] 9.64 10*3/uL Normal 4.50-11.00 [facility] Comment on above: Performed By: #### Torres DIMR, TNIH, CBC, COMPH #### [facility] [address] [place], [place] [address] COMPREHENSIVE METABOLIC PANE [facility] 11-01-2020 Albumin [Mass/Vol] 3.5 g/dL Normal 3.5-5.0 [facility] Comment on above: Performed By: #### D DIMR, TNIH, CBC, COMPH #### [facility] [address] [place], [place] [address] ALP [Catalytic activity/Vol] 76 U/L Normal 34-115 [facility] Comment on above: Performed By: #### D DIMR, TNIH, CBC, COMPH #### [facility] [address] [place] [address] ALT [Catalytic activity/Vol] 25 U/L Normal 11-66 [facility] Comment on above: Performed By: #### D DIMR, TNIH, CBC, COMPH #### [facility] [address] [place] [address] AST [Catalytic activity/Vol] 29 U/L Normal 5-40 [facility] Comment on above: Performed By: #### D DIMR, TNIH, CBC, COMPH #### [facility] [address] [place] [address] Bilirubin [Mass/Vol] 0.4 mg/dL Normal 0.2-1.3 [facility] Comment on above: Result Comment: Prom acta (Eltrombopag) use may falsely elevate total bilirubin results. Performed By: #### D DIMR, TNIH, CBC, COMPH #### [facility] [address] [place] [address] Calcium [Mass/Vol] 9.1 mg/dL Normal 8.3-10.0 [facility] Comment on above: Performed By: #### D DIMR, TNIH, CBC, COMPH #### [facility] [address] [place] [address] Chloride [Moles/Vol] 102 mmol/L Normal 99-109 [facility] Comment on above: Performed By: #### D DIMR, TNIH, CBC, COMPH #### [facility] [address] [place] [address] CO2 [Moles/Vol] 23 mmol/L Normal 22-32 [facility] Comment on above: Performed By: #### D DIMR, TNIH, CBC, COMPH #### [facility] [address] [place] [address] Creatinine [Mass/Vol] 0.81 mg/dL Normal 0.55-1.02 [facility] Comment on above: Performed By: #### D DIMR, TNIH, CBC, COMPH #### [facility] [address] [place] [address] GFR >60.00 Normal >=60 [facility] Comment on above: Result Comment: Unit [...] #### D DIMR, TNIH, CBC, COMPH #### [facility] [address] [place] [address] GFR NON- >60.00 Normal >=60 [facility] Comment on above: Result Comment: Unit [...] #### D DIMR, TNIH, CBC, COMPH #### [facility] [address] [place] [address] Glucose [Mass/Vol] 88 mg/dL Normal 65-110 [facility] Comment on above: Performed By: #### D DIMR, TNIH, CBC, COMPH #### [facility] [address] [place] [address] Potassium [Moles/Vol] 4.3 mmol/L Normal 3.6-5.0 [facility] Comment on above: Performed By: #### D DIMR, TNIH, CBC, COMPH #### [facility] [address] [place] [address] Protein [Mass/Vol] 7.3 g/dL Normal 6.3-8.2 [facility] Comment on above: Performed By: #### D DIMR, TNIH, CBC, COMPH #### [facility] [address] [place] [address] Sodium [Moles/Vol] 140 mmol/L Normal 139-147 [facility] Comment on above: Performed By: #### D DIMR, TNIH, CBC, COMPH #### [facility] [address] [place] [address] Urea nitrogen [Mass/Vol] 10 mg/dL Normal 7-25 [facility] Comment on above: Performed By: #### D DIMR, TNIH, CBC, COMPH #### [facility] [address] [place] [address] D-DIMERon 11-01-2020 D-DIMER 214.00 ng/mL FEU Normal <=682 [facility] Comment on above: Result Comment: [...] #### D DIMR, TNIH, CBC, COMPH #### [facility] [address] [place] [address] TROPONIN, HIGH SENSITIVITYon 11-01-2020 TROPONIN, HIGH SENSITIVITY <0.03 Normal 0.00-0.06 [facility] Comment on above: Result Comment: RISK STRATIFICATION: Low risk 0.00-0.06 Intermediate risk 0.07-<0.1 High risk 0.1-0.6 Suggestive of [place] >.6 Performed By: #### D DIMR, TNIH, CBC, COMPH #### [facility] [address] [place] [address] Xray, Chest 2 viewson 2020 Xray, Chest 2 views TWO VIEWS OF THE CHEST CLINICAL HISTORY: Chest pain, unspecified COMPARISON: None. FINDINGS: The cardiac silhouette and mediastinal contours are within normal limits. The lungs are clear. There is no pleural effusion or pneumothorax. IMPRESSION: No acute findings. Normal [facility] Comment on above: Order Comment: Chest pain, unspecified COVID-19, MOLECULARon 2020 SARS-COV-2 ([employer]IN) Not Detected Normal Not Detected [facility] Comment on above: Order Comment: : Ayleen l Swab COVID/Flu Lab Tests (OP in UTM/Dry) Result Comment: This test was performed under the FDA's Emergency Use Authorization (EUA). Testing was performed using the Simplexa SARS-CoV-2 RT-PCR assay ([employer]) on the [employer] platform. This test has not been approved for use in asymptomatic patients and its performance in this patient population has not been evaluated. Negative results do not rule out the presence of SARS-CoV-2/COVID-19. Fact sheets for this EUA can be found at the following links: For Healthcare Providers: https://www.fda.gov/media/318077/download For Patients: https://www.fda.gov/media/437339/download Performed By: #### L [id number] #### [facility] [address] [place] [address] Zen Kwon M.D. [id number] Vital Signs Date Time Vital Sign Value Performing Clinician Facility 06-23-2024 11:05-0500 Body height 157.5 cm Soraida Owens MD Work Phone: [facility] 06-23-2024 11:05-050 Body mass index (BMI) [Ratio] 37.68 kg/m2 Soraida Owens MD Work Phone: [facility] 06-23-2024 11:05-0500 Body weight 93.44 kg Soraida Owens MD Work Phone: [facility] 05-04-2024 16:27-0500 Body height 157.5 cm Gwendolyn TOMAS Work Phone: [facility] 05-04-2024 16:27-0500 Body mass index (BMI) [Ratio] 37.86 kg/m2 Gwendolyn Hemmer PA Work Phone: [facility] 05-04-2024 16:27-0500 Body weight 93.89 kg Gwendolyn Hemmer PA Work Phone: [facility] 05-04-2024 16:27-0500 Diastolic blood pressure 78 mm[Hg] Gwendolyn Hemmer PA Work Phone: [facility] 05-04-2024 16:27-0500 Heart rate 86 /min Gwendolyn Hemmer PA Work Phone: [facility] 05-04-2024 16:27-0500 SaO2% (BldA) [Mass fraction] 99 % Gwendolyn Hemmer PA Work Phone: [facility] 05-04-2024 16:27-0500 Systolic blood pressure 124 mm[Hg] Gwendolyn Hemmer PA Work Phone: [facility] 04-23-2024 15:19-0500 Body height 157.5 cm Jasiel Oakes MD Work Phone: [facility] 04-23-2024 15:19-0500 Body mass index (BMI) [Ratio] 37.49 kg/m2 Jasiel Oakes MD Work Phone: [facility] 04-23-2024 15:19-0500 Body weight 92.99 kg Jasiel Oakes MD Work Phone: [facility] 04-23-2024 15:19-0500 Diastolic blood pressure 80 mm[Hg] Jasiel Oakes MD Work Phone: [facility] 04-23-2024 15:19-0500 Systolic blood pressure 127 mm[Hg] Jasiel Oakes MD Work Phone: [facility] 03-17-2024 15:21-0400 Body height 157.5 cm Jasiel Oakes MD Work Phone: [facility] 03-17-2024 15:21-0400 Body mass index (BMI) [Ratio] 37.31 kg/m2 Jasiel Oakes MD Work Phone: [facility] 03-17-2024 15:21-0400 Body weight 92.53 kg Jasiel Oakes MD Work Phone: [facility] 03-17-2024 15:21-0400 Diastolic blood pressure 72 mm[Hg] Jasiel Oakes MD Work Phone: [facility] 03-17-2024 15:21-0400 Systolic blood pressure 121 mm[Hg] Jasiel Oakes MD Work Phone: [facility] 03-03-2024 15:07-0400 Body height 157.5 cm Gwendolyn Hemmer PA Work Phone: [facility] 03-03-2024 15:07-0400 Body mass index (BMI) [Ratio] 37.49 kg/m2 Gwendolyn Hemmer PA Work Phone: [facility] 03-03-2024 15:07-0400 Body weight 92.99 kg Gwendolyn Hemmer PA Work Phone: [facility] 03-03-2024 15:07-0400 Diastolic blood pressure 82 mm[Hg] Gwendolyn Hemmer PA Work Phone: [facility] 03-03-2024 15:07-0400 Heart rate 81 /min Gwendolyn Hemmer PA Work Phone: [facility] 03-03-2024 15:07-0400 Respiratory rate 16 /min Gwendolyn Hemmer PA Work Phone: [facility] 03-03-2024 15:07-0400 SaO2% (BldA) [Mass fraction] 98 % Gwendolyn Hemmer PA Work Phone: [facility] 03-03-2024 15:07-0400 Systolic blood pressure 110 mm[Hg] Gwendolyn Hemmer PA Work Phone: [facility] 02-11-2024 14:12-0400 Body height 157.5 cm Jasiel Oakes MD Work Phone: [facility] 02-11-2024 14:12-0400 Body mass index (BMI) [Ratio] 34.75 kg/m2 Jasiel Oakes MD Work Phone: [facility] 02-11-2024 14:12-0400 Body weight 86.18 kg Jasiel Oakes MD Work Phone: [facility] 02-11-2024 14:12-0400 Diastolic blood pressure 70 mm[Hg] Jasiel Oakes MD Work Phone: [facility] 02-11-2024 14:12-0400 Systolic blood pressure 132 mm[Hg] Jasiel Oakes MD Work Phone: [facility] 01-01-2023 11:10-0400 Body height 160.02 cm Moni Cain Other [employer] Other 01-01-2023 11:10-0400 Body mass index (BMI) [Ratio] 33.65 kg/m2 Moni Cain Other [employer] Other 01-01-2023 11:10-0400 Body temperature 98.2 [degF] Moni Cain Other [employer] Other 01-01-2023 11:10-0400 Body weight 86.18 kg Moni Cain Other [employer] Other 01-01-2023 11:10-0400 Diastolic blood pressure 68 mm[Hg] Moni Cain Other [employer] Other 01-01-2023 11:10-0400 Respiratory rate 18 /min Moni Cain Other [employer] Other 01-01-2023 11:10-0400 SaO2% (BldA) [Mass fraction] 96 % Moni Cain Other [employer] Other 01-01-2023 11:10-0400 Systolic blood pressure 125 mm[Hg] Moni Ant Other [employer] Other 10-31-2022 18:10-0400 Body height 160.02 cm Kamala Parker Other [employer] Other 10-31-2022 18:10-0400 Body mass index (BMI) [Ratio] 34.5 kg/m2 Kamala Parker Other [employer] Other 10-31-2022 18:10-0400 Body temperature 98.1 [degF] Kamala Parekr Other [employer] Other 10-31-2022 18:10-0400 Body weight 88.36 kg Kamala Parker Other [employer] Other 10-31-2022 18:10-0400 Diastolic blood pressure 57 mm[Hg] Kamala Parker Other [employer] Other 10-31-2022 18:10-0400 Respiratory rate 18 /min Kamala Parker Other [employer] Other 10-31-2022 18:10-0400 SaO2% (BldA) [Mass fraction] 99 % Kamala Parker Other [employer] Other 10-31-2022 18:10-0400 Systolic blood pressure 101 mm[Hg] Kamala Parker Other [employer] Other 05-22-2022 14:42-0500 Body height 157.5 cm Sidra Joseph PA-C Work Phone: [facility] 05-22-2022 14:42-0500 Body mass index (BMI) [Ratio] 36.69 kg/m2 Sidra Joseph PA-C Work Phone: [facility] 05-22-2022 14:42-0500 Body weight 90.99 kg Sidra Joseph PA-C Work Phone: [facility] 05-22-2022 14:42-0500 Diastolic blood pressure 61 mm[Hg] Sidra Joseph PA-C Work Phone: [facility] 05-22-2022 14:42-0500 Heart rate 74 /min Sidra Joseph PA-C Work Phone: [facility] 05-22-2022 14:42-0500 Systolic blood pressure 115 mm[Hg] Sidra Joseph PA-C Work Phone: [facility] 05-01-2022 13:16-0500 Body height 157.5 cm Sidra Joseph PA-C Work Phone: [facility] 05-01-2022 13:16-0500 Body mass index (BMI) [Ratio] 36.03 kg/m2 Sidra Joseph PA-C Work Phone: [facility] 05-01-2022 13:16-0500 Body weight 89.36 kg Sidra Joseph PA-C Work Phone: [facility] 05-01-2022 13:16-0500 Diastolic blood pressure 84 mm[Hg] Sidra Joseph PA-C Work Phone: [facility] 05-01-2022 13:16-0500 Heart rate 73 /min Sidra Joseph PA-C Work Phone: [facility] 05-01-2022 13:16-0500 Systolic blood pressure 114 mm[Hg] Sidra Joseph PA-C Work Phone: [facility] 07-05-2021 14:01-0500 Body height 157.5 cm Claudio Price PA-C Work Phone: [facility] Comment on above: per pt. 07-05-2021 14:01-0500 Body mass index (BMI) [Ratio] 34.75 kg/m2 Claudio Price PA-C Work Phone: [facility] 07-05-2021 14:01-0500 Body temperature 98.49 [degF] Claudio Price PA-C Work Phone: [facility] 07-05-2021 14:01-0500 Body weight 86.18 kg Claudio Price PA-C Work Phone: [facility] Comment on above: per pt. 07-05-2021 14:01-0500 Diastolic blood pressure 72 mm[Hg] Claudio Price PA-C Work Phone: [facility] 07-05-2021 14:01-0500 Heart rate 68 /min Claudio Price PA-C Work Phone: [facility] 07-05-2021 14:01-0500 SaO2% (BldA) [Mass fraction] 97 % Claudio Price PA-C Work Phone: [facility] 07-05-2021 14:01-0500 Systolic blood pressure 110 mm[Hg] Claudio Price PA-C Work Phone: [facility] 06-26-2021 11:02-0500 Body height 157.5 cm Sara Marques PA-C Work Phone: [facility] 06-26-2021 11:02-0500 Body mass index (BMI) [Ratio] 34.75 kg/m2 Sara Fountainens PA-C Work Phone: [facility] 06-26-2021 11:02-0500 Body temperature 98.49 [degF] Sara Fountainens PA-C Work Phone: [facility] 06-26-2021 11:02-0500 Body weight 86.18 kg Sara Marques PA-C Work Phone: [facility] 06-26-2021 11:02-0500 Diastolic blood pressure 76 mm[Hg] Sara Bernens PA-C Work Phone: [facility] 06-26-2021 11:02-0500 Heart rate 82 /min Sara Bernens PA-C Work Phone: [facility] 06-26-2021 11:02-0500 Respiratory rate 16 /min Sara Bernens PA-C Work Phone: [facility] 06-26-2021 11:02-0500 Systolic blood pressure 122 mm[Hg] Sara Bernens PA-C Work Phone: [facility] Encounters Encounter Date Encounter Type Care Provider Facility Start: 06-23-2024 End: 06-23-2024 Lyssa Owens MD Work Phone: [facility] Start: 06-23-2024 End: 06-23-2024 Lyssa Owens MD Work Phone: [facility] Start: 06-23-2024 End: 06-23-2024 Office outpatient new 60 minutes Soraida Owens MD Work Phone: [facility] Comment on above: Anaphylaxis, initial encounter (Primary Dx); Allergy to drug; Gas pain Start: 06-23-2024 End: 06-23-2024 ambulatory SORAIDA OWENS Not Available Start: 05-29-2024 End: 05-29-2024 Orders Only Gwendolyn TOMAS Work Phone: [facility] Comment on above: Allergy to drug (Mamie latia Dx) Start: 05-04-2024 End: 05-04-2024 Office outpatient visit 25 minutes Gwendolyn TOMAS Work Phone: [facility] Comment on above: PCOS (polycystic ova akanksha syndrome) (Primary Dx); Spinal stenosis of lumbar region with neurogenic claudication; Degeneration of intervertebral disc of lumbar region with discogenic back pain and lower extremity pain; Major depressive disorder, recurrent, moderate (CMS/HCC) Start: 05-04-2024 End: 05-04-2024 ambulatory GWENDOLYN LU Not Available Start: 05-04-2024 End: 05-04-2024 Bamboo flowsheet Gwendolyn Monktobin PA Work Phone: [facility] Start: 05-04-2024 End: 05-04-2024 Bamboo flowsheet Gwendolyn Lu PA Work Phone: [facility] Start: 04-27-2024 End: 04-27-2024 ambulatory Gwendolyn Lu Facility:[facility] Start: 04-23-2024 End: 04-23-2024 Office outpatient visit 15 minutes Jasiel Oakes MD Work Phone: [facility] Comment on above: Sensorineural hearin g loss (SNHL) of left ear with restricted hearing of right ear (Primary Dx); Mixed conductive and sensorineural hearing loss of right ear with restricted hearing of left ear; ETD (Eustachian tube dysfunction), bilateral Start: 04-23-2024 End: 04-23-2024 ambulatory JASIEL OAKES Not Available Start: 04-23-2024 End: 04-23-2024 Bamboo flowskimber Oakes MD Work Phone: [facility] Start: 04-23-2024 End: 04-23-2024 Bamboo flowskimber Oakes MD Work Phone: [facility] Start: 04-21-2024 End: 04-21-2024 Bamboo flowsheet Gertrudis Chino CCC-A Work Phone: [facility] Start: 04-21-2024 End: 04-21-2024 Bamboo flowsheet Gertrudis Chino CCC-A Work Phone: [facility] Start: 04-21-2024 End: 04-21-2024 Clinical Support Gertrudis Chino CCC-A Work Phone: [facility] Comment on above: Conductive hearing l oss of right ear with restricted hearing of left ear (Primary Dx); ETD (Eustachian tube dysfunction), bilateral Start: 03-17-2024 End: 03-17-2024 ambulatory JASIEL OAKES Not Available Start: 03-17-2024 End: 03-17-2024 Office outpatient visit 15 minutes Jasiel Oakes MD Work Phone: [facility] Comment on above: ETD (Eustachian tube dysfunction), bilateral (Primary Dx); Other specified hearing loss of left ear, unspecified hearing status on contralateral side Start: 03-15-2024 End: 03-17-2024 ambulatory GWENDOLYN LU [facility] Start: 03-15-2024 End: 03-17-2024 Subsequent hospital visit by physician Mth Mri Scanner [facility] Comment on above: Lumbar pain with rad iation down both legs; Compression fracture of L1 lumbar vertebra, closed, initial encounter ([facility]) Start: 03-09-2024 End: 03-09-2024 Telephone encounter Ashly Velasquez LPN [facility] Comment on above: recommendations Start: 03-03-2024 End: 03-03-2024 ambulatory GWENDOLYN LU Not Available Start: 03-03-2024 End: 03-03-2024 Office outpatient visit 25 minutes Gwendolyn TOMAS Work Phone: [facility] Comment on above: Lumbar pain with rad iation down both legs (Primary Dx) Start: 02-11-2024 End: 02-11-2024 ambulatory JASIEL OAKES Not Available Start: 02-11-2024 End: 02-11-2024 Postop follow up visit related to original px Jasiel Oakes MD Work Phone: [facility] Comment on above: Nausea and vomiting, unspecified vomiting type (Primary Dx) Start: 02-11-2024 End: 02-11-2024 Telephone encounter Jasiel Oakes MD Work Phone: [facility] Start: 02-10-2024 End: 02-10-2024 Clinisync Result Encounter Generic External Data Provider [facility] Unsolicited Start: 02-10-2024 End: 02-10-2024 Clinisync Result Encounter Generic External Data Provider [facility] External [facility] Unsolicited Start: 02-02-2024 End: 02-02-2024 Clinical Support Gertrudis Chino [facility] Work Phone: [facility] Comment on above: Conductive hearing l oss, bilateral (Primary Dx); ETD (Eustachian tube dysfunction), bilateral Start: 12-01-2023 End: 12-01-2023 ambulatory JASIEL OAKES Not Available Start: 10-29-2023 End: 10-29-2023 ambulatory GWENDOLYN MONKTOBIN Not Available Start: 07-29-2023 End: 07-29-2023 ambulatory ERICKA TOBIAS Not Available Start: 01-01-2023 End: 01-01-2023 ambulatory Moni Cain Other [employer] Other Start: 01-01-2023 Office outpatient vi sit 15 minutes Moni Cain [facility] [place] Start: 10-31-2022 End: 10-31-2022 ambulatory Kamala Parker Other [employer] Other Start: 10-31-2022 Office outpatient ne w 20 minutes Kamala Parker [facility] [place] Start: 06-19-2022 End: 06-19-2022 ambulatory PHYSICIAN [facility] Start: 05-22-2022 End: 05-22-2022 ambulatory SIDRA JOSEPH [facility] Start: 05-22-2022 End: 05-22-2022 Patient encounter procedure Sidra Joseph PA-C Work Phone: [facility] Physician [facility]etric[facility]ne[facility] Comment on above: Encounter for IUD in sertion (Primary Dx); Negative test; Routine screening for STI (sexually transmitted infection) Start: 05-01-2022 End: 05-01-2022 ambulatory SIDRA JOSEPH [facility] Start: 05-01-2022 End: 05-01-2022 Office outpatient new 20 minutes Sidra TOMAS-Milan Work Phone: [facility] Obstetrics [facility] Gynecology Comment on above: Pelvic pain in femal e (Primary Dx); Abnormal uterine bleeding (AUB); PCOS (polycystic ovarian syndrome) Start: 04-03-2022 End: 04-07-2022 Emergency department patient visit PHYSICIAN NO [facility] Start: 04-03-2022 End: 04-03-2022 Emergency department patient visit PHYSICIAN NO [facility] Start: 11-12-2021 End: 11-13-2021 ambulatory PHYSICIAN NO [facility] Start: 07-24-2021 ambulatory PHYSICIAN NO [facility] Start: 07-05-2021 End: 07-05-2021 ambulatory PHYSICIAN NO [facility] Start: 07-05-2021 End: 07-05-2021 Office outpatient visit 10 minutes Claudio Price PA-C Work Phone: [facility] Comment on above: Rash (Primary Dx); Fungal infection Start: 06-26-2021 End: 06-26-2021 ambulatory PHYSICIAN NO [facility] Start: 06-26-2021 End: 06-26-2021 Office outpatient visit 15 minutes Sara Marques PA-C Work Phone: [facility] Urgent [facility] [place] Comment on above: Pityriasis rosea (Pr imary Dx); Achilles tendinitis, unspecified laterality Start: 02-23-2021 End: 02-23-2021 Clinical Support Shanell Rosas RN [facility] Comment on above: Need for vaccination (Primary Dx) Start: 02-10-2021 End: 02-10-2021 ambulatory COLETTE DE LA PAZ [facility] Start: 12-19-2020 End: 12-19-2020 ambulatory JANI SÁNCHEZ Facility:[facility] Start: 12-05-2020 End: 12-06-[address] ZAN MCCLENDON Facility:[facility] Start: 11-01-2020 ambulatory KILLIAN CURIEL Facilit y:[facility] Start: 11-01-2020 End: 11-02-2020 ambulatory KILLIAN CURIEL Facility:[facility] Start: 08-27-2020 End: 08-27-2020 [facility] Procedures Date Procedure Procedure Detail Performing Clinician Start: 04-21-2024 AUDITORY FUNCTION TESTS Gertrudis Chino CCC-A Work Phone: Start: 02-10-2024 ALL CBC WITH AUTO DIFF Jasiel Oakes MD Work Phone: Start: 02-02-2024 AUDITORY FUNCTION TESTS Gertrudis Angelill CCC-A Work Phone: Start: 05-22-2022 Iadna chlamydia trachomatis amplified probe tq Sidra Joseph PA-C Work Phone: Start: 05-22-2022 Urine test visual color cmprsn meths Sidra Joseph PA-C Work Phone: Plan of Treatment Date Care Activity Detail Author Start: 04-26-2025 End: 04-26-2025 Patient encounter procedure 04/26/2025 3:20 PM EST Office Visit [facility] [address] [place] [address] Jasiel Oakes MD [address] [place] [address] [facility] Start: 11-15-2024 Influenza vaccination Influenza Vacc ine (#1) [facility] Comment on above: Postponed from 01/17 (Patient Refused) Start: 08-04-2024 End: 08-04-2024 Patient encounter procedure [facility] Start: 08-03-2024 End: 08-03-2024 Patient encounter procedure 08/03/2024 4:30 PM EDT Office Visit [facility] [address] [place] [address] Gwendolyn Lu PA [address] [place] [address] [facility] Start: 06-23-2024 End: 06-23-2024 Patient encounter procedure 06/23/2024 11:00 AM EST Office Visit [facility] [address] [place] [address] Soraida Owens MD [address] [place] [address] Allergy to drug [facility] Comment on above: Allergy to drug Start: 05-04-2024 End: 05-04-2024 Patient encounter procedure [facility] Comment on above: Arrived Start: 04-23-2024 End: 04-23-2024 Patient encounter procedure [facility] Comment on above: Arrived Start: 03-17-2024 End: 03-17-2024 Patient encounter procedure 03/17/2024 3:20 PM EDT Office Visit [facility] [address] [facility] [address] [place] [address] Jasiel Oakes MD [address] [facility] [address] [place] [address] [facility] Start: 03-03-2024 End: 03-03-2025 XR Lumbar spine 4 Views XR LUMBAR SPINE AP/LAT/FLEX/EXT/OBLIQUE S Imaging Routine Lumbar pain with radiation down both legs Expected: 03/03/2024, Expires: 03/03/2025 [facility] Work Phone: Comment on above: Expected: 03/03/2024 , Expires: 03/03/2025 Start: 02-11-2024 End: 02-11-2024 Patient encounter procedure 02/11/2024 2:00 PM EDT Office Visit [facility] [address] [facility] [address] [place] [address] Jasiel Oakes MD [address] [place] [address] [facility] Start: 02-10-2024 End: 02-10-2024 Patient encounter procedure 02/10/2024 7:30 AM EDT Procedure Visit [facility] Jasiel Oakes MD [address] [place] [address] [facility] Start: 01-18-2024 COVID-19 Vaccine ( season) COVID-19 Vaccine ( season) [facility] Start: 01-18-2024 Influenza vaccination Influenza Vacc ine (#1) [facility] Start: 12-18-2023 Influenza vaccination Flu vaccine (# 1) [facility] Start: 05-22-2023 Screening for Chlamy ash trachomatis Chlamydia Screening [facility] Start: 06-19-2022 End: 06-19-2022 Patient encounter procedure 06/19/2022 Office Visit Obstetrics and Gynecology Sidra Joseph PA-C [address] [place] [address] [place] [address] [facility] Ob[facility]etric[facility] Gynecology Start: 05-22-2022 End: 05-22-2022 Patient encounter procedure 05/22/2022 Procedure visit Obstetrics and Gynecology Sidra Joseph PA-C [address] [place] [address] [place] [address] [facility] Physician [facility] Start: 01-17-2022 Influenza vaccination Sequenti al Influenza Vaccine (#1) [facility] Start: 11-04-2021 DTaP/Tdap/Td vaccine (7 - Td or Tdap) DTaP/Tdap/Td vaccine (7 - Td or Tdap) [facility] Start: 11-04-2021 Tetanus vaccination Tetanus: Every 1 0yrs [facility] Start: 02-24-2021 Depression screening using PHQ-9 (Patient Health Questionnaire 9) score Depression Screening (PHQ-2/9) [facility] Comment on above: Postponed from 07/16 (Patient Refused) Start: 01-23-2021 COVID-19 Vaccine (3 - Booster for Moderna series) COVID-19 Vaccine (3 - Booster for Moderna series) [facility] Start: 10-18-2020 COVID-19 Vaccine (3 - Booster for Moderna series) COVID-19 Vaccine (3 - Booster for Moderna series) [facility] Start: 2020 Screening for malign ant neoplasm of cervix Pap smear [facility] Start: 2017 Hepatitis C screening [facility] Start: 2015 Screening for Chlamy ash trachomatis Chlamydia/GC screen [facility] Start: 2014 HIV screening [facility] Start: 2011 Depression Screen Depression Screen [facility] Start: 2011 Depression screening using PHQ-9 (Patient Health Questionnaire 9) score Depression Screening (PHQ-2/9) [facility] Start: 2002 History and physical examination, annual for health maintenance Wellness Visit [facility] Start: 1999 Screening for Chlamy ash trachomatis Chlamydia Screening [facility] Start: 1999 Screening for malign ant neoplasm of cervix Pap Smear [facility] Chlamydia trachomati s rRNA assay [facility] Work Phone: Comment on above: Ordered: 05/22/2022 End: 03-15-2024 MR Lumbar spine WO contrast [facility] Work Phone: Comment on above: 1 Occurrences starti ng 03/15/2024 until 03/15/2024 Neisseria gonorrhoea e nucleic acid detection [facility] Comment on above: Ordered: 05/22/2022 Trichomonas vaginali s Amplified RNA [facility] Comment on above: Ordered: 05/22/2022 Immunizations Immunization Date Immunization Notes Care Provider Ana levy 02-23-2021 influenza, injectabl e, quadrivalent, preservative free Shanell Rosas RN [facility] 02-23-2021 flu vacc [id number] 6 mos up,PF, (FLUZONE QUAD) injection Shanell Rosas RN [facility] Work Phone: 02-23-2021 influenza virus vacc ine, unspecified formulation [facility] 03-06-2020 influenza, injectabl e, quadrivalent, preservative free Shanell Rosas RN [facility] 11-04-2017 meningococcal B vacc ine, recombinant, OMV, adjuvanted Shanell Rosas RN [facility] 12-26-2016 meningococcal oligosaccharide (groups A, C, Y and W-135) diphtheria toxoid conjugate vaccine (MCV4O) Shanell Rosas RN [facility] 05-14-2012 hepatitis A vaccine, pediatric/adolescent dosage, 2 dose schedule Shanell Rosas RN [facility] 05-14-2012 HPV, unspecified formulation Shanell Rosas RN [facility] 01-03-2012 human papilloma viru s vaccine, quadrivalent Shanell Rosas RN [facility] 01-03-2012 varicella virus vaccine Shanell callejas RN [facility] 11-05-2011 hepatitis A vaccine, pediatric/adolescent dosage, 2 dose schedule Shanell Rosas RN [facility] 11-05-2011 human papilloma viru s vaccine, quadrivalent Shanell Rosas RN [facility] 11-05-2011 tetanus toxoid, redu cliff diphtheria toxoid, and acellular pertussis vaccine, adsorbed Shanell Rosas RN [facility] 08-02-2004 diphtheria, tetanus toxoids and acellular pertussis vaccine Shanell Rosas RN [facility] 08-02-2004 measles, mumps and rubella virus vaccine Shanell Rosas RN [facility] 08-02-2004 poliovirus vaccine, inactivated Shanell Rosas RN [facility] 01-15-2001 pneumococcal conjuga te vaccine, 7 valent Shanell Rosas RN [facility] 12-16-2000 diphtheria, tetanus toxoids and acellular pertussis vaccine, unspecified formulation Shanell Rosas RN [facility] 11-13-2000 diphtheria, tetanus toxoids and acellular pertussis vaccine, unspecified formulation Shanell Rosas RN [facility] 11-13-2000 pneumococcal conjuga te vaccine, 7 valent Shanell Rosas RN [facility] 08-07-2000 haemophilus influenz ae type b vaccine, PRP-OMP conjugate Shanell Rosas RN [facility] 08-07-2000 measles, mumps and rubella virus vaccine Shanell Rosas RN [facility] 08-07-2000 poliovirus vaccine, inactivated Shanell Rosas [facility] 08-07-2000 varicella virus vaccine Shanell callejas RN [facility] 07-04-2000 pneumococcal conjuga te vaccine, 7 valent Shanell Rosas RN [facility] 06-26-2000 influenza virus vacc ine, whole virus Shanell Rosas [facility] 05-15-2000 diphtheria, tetanus toxoids and acellular pertussis vaccine, unspecified formulation Shanell Rosas RN [facility] 05-15-2000 haemophilus influenz ae type b vaccine, PRP-OMP conjugate Shanell Rosas [facility] 05-15-2000 influenza virus vacc ine, whole virus Shanell Rosas [facility] 02-21-2000 diphtheria, tetanus toxoids and acellular pertussis vaccine, unspecified formulation Shanell oRsas RN [facility] 02-21-2000 haemophilus influenz ae type b conjugate and Hepatitis B vaccine Shanell Rosas RN [facility] 02-21-2000 poliovirus vaccine, inactivated Shanell Rosas RN [facility] 1999 diphtheria, tetanus toxoids and acellular pertussis vaccine, unspecified formulation Shanell Rosas RN [facility] 1999 haemophilus influenz ae type b conjugate and Hepatitis B vaccine Shnaell Rosas RN [facility] 1999 poliovirus vaccine, inactivated Shaenll Rosas RN [facility] 1999 hepatitis B vaccine, pediatric or pediatric/adolescent dosage Shanell Rosas RN [facility] Payers Date Payer Category Payer Self-pay 2016 Private Health Insurance [employer] [id number] 2016 Unknown O [facility] [employer] PPO [id number] 2016-Present [phone] [address] [place] [address] [id number] 2016 Unknown [id number] [id number]. [id number] 1999 Unknown [id number] 2.16.840.1.842384.3.579.2. 900 1999 Unknown [id number] 2.16.840.1.284127.3.579.2. 593 1999 Unknown [id number] 2.16.840.1.447260.3.579.2. 593 1999 Unknown [id number] 2.16.840.1.491534.3.579.2. 903 1999 Unknown [id number] 2.16.840.1.391573.3.579.2. 903 1999 Unknown [id number] 2.16.840.1.237305.3.579.2. 903 1999 Unknown [id number] 2.16.840.1.502903.3.579.2. 903 1999 Unknown [id number] 2.16.840.1.026260.3.579.2. 903 1999 Unknown [id number] 2.16.840.1.074044.3.579.2. 903 1999 Unknown [id number] 2.16.840.1.940929.3.579.2. 903 1999 Unknown [id number] 2.16.840.1.044450.3.579.2. 903 1999 Unknown [id number] 2.16.840.1.812446.3.579.2. 903 1999 Unknown [id number] 2.16.840.1.827274.3.579.2. 903 1999 Unknown [id number] 2.16.840.1.140704.3.579.2. 903 1999 Unknown [id number] 2.16.840.1.629925.3.579.2. 173 1999 Unknown [id number] 2.16.840.1.360972.3.579.2. 1259 1999 Unknown [id number] 2.16.840.1.535118.3.579.2. 1259 1999 Unknown [id number] 2.16.840.1.402608.3.579.2. 1259 1999 Unknown [id number] 2.16.840.1.396099.3.579.2. 9 1999 Unknown [id number] 2.16.840.1.727989.3.579.2. 9 1999 Unknown [id number] 2.16.840.1.874109.3.579.2. 9 1999 Unknown [id number] 2.16.840.1.778819.3.579.2. 9 1999 Unknown [id number] 2.16.840.1.357946.3.579.2. 9 1999 Unknown [id number] 2.16.840.1.065531.3.579.2. 9 1999 Unknown [id number] 2.16.840.1.325220.3.579.2. 9 1999 Unknown [id number] 2.16.840.1.313870.3.579.2. 1259 1959 Unknown [id number] Unknown [id number] 2.16.840.1.961509.3.579.2. 531 Social History Date Type Detail Facility Start: 02-10-2021 End: 10-31-2022 Tobacco smoking status TNIS Never smoked tobacco [facility] Start: 02-10-2021 End: 03-17-2024 Tobacco use and exposure Smokeless tobacco non-user [facility] Start: 1999 Sex Assigned At Not on file [facility] Start: 04-21-2022 End: 05-18-2022 Exposure to SARS-CoV-2 (event) Not sure [facility] Start: 07-05-2021 End: 06-23-2024 Alcohol intake Current drinker of alcohol (finding) [facility] Start: 07-05-2021 History SDOH Alcohol Comment weekends [facility] Start: 03-25-2023 End: 06-23-2024 Sex Assigned At [facility] Start: 03-25-2023 End: 03-03-2024 Alcoholic beverage intake [facility] Within the last year , have you been afraid of your partner or ex-partner? Yes [facility] Are you now , , , , never or living with a partner? Never [facility] How often to you hav e a drink containing alcohol? 2-4 times a month [facility] How many standard drinks containing alcohol do you have on a typical day? 3 or 4 [facility] How often do you hav e 6 or more drinks on 1 occasion? Monthly [facility] How hard is it for you to pay for the very basics like food, housing, medical care, and heating Not hard at all [facility] Do you feel stress - tense, restless, nervous, or anxious, or unable to sleep at night because your mind is troubled all the time - these days [OSQ] Rather much [facility] (I/We) worried whether (my/our) food would run out before (I/we) got money to buy more. Never true [facility] In the past 12 months, was there a time when you were not able to pay the mortgage or rent on time? No [facility] Start: 03-25-2023 Alcohol Comment Caffeine intak e: 2-3 cups per day [facility] Start: 1999 Sex assigned at Female [facility] Start: 07-31-2022 Gender identity Identifies as female gender (finding) [facility] Start: 10-30-2022 Sexual orientation Heterosexual (fin ding) [facility] Tobacco smoking status [facility] Tobacco smoking consumption unknown [facility] Start: 10-17-2022 Tobacco smoking status [facility] Smokes tobacco daily [facility] Start: 10-17-2022 History of tobacco use Cigarette Smoker [facility] Start: 03-17-2024 Tobacco Comment Vape [facility] NEGATED: Highlighted rowStart: NINF History of tobacco use Passive smoker [facility] Clinical Notes 06-26-2021 to 06-23-2024 Soraida Owens MD - 06/23/2024 11:00 AM THOM Vaz - 05/29/2024 9:59 AM THOM Vaz - 05/04/2024 4:30 PM Salo Oakes MD - 04/23/2024 3:20 PM EST Note Date & Type Note Facility 06-23-2024 History of Presen t illness Narrative Esha Shannon is a very pleasant 23 y.o. year old female who comes to the office today with the chief complaint of anaphylaxis. Referred by Gwendolyn Lu She had anaphylaxis a few weeks ago she believes from mucinex. In 2018 she had anaphylaxis twice from advil and she was told to avoid NSAIDS. In 2019 she had a headache and took advil and within 60 minutes she had throat tightness and itching of the ears as well as neck itching and facial swelling. She had some chest tightness as well but she could breathe. Then about 2 months later she took advil for headache and had the exact same symptoms about 1 hour after the medication. She has avoided all NSAIDS since that time but she was told she could take Aleve after passing an oral challenge. The advil she took was a gel capsule. She was at home a few weeks with her boyfriend and she started to have throat itching and rhinorrhea and then took mucinex-DM and then started to have ear itch and throat itching and then vomited and had facial swelling and went to the ER and was given epinephrine there which made her feel better. She takes dayquil and has no problem with this even though it has the same active ingredients. She gets gas pain and bloating and vomit after eating many foods. She felt at one time this was dairy but she will still getting sick with this. She tends to get rhinorrhea in the winter. The patient denies having any typical allergic triggers for these nasal symptoms such as animal dander, dusting, vacuuming or mowing the lawn. EXAM The patient appears comfortable in the office today. Lungs are clear to auscultation bilaterally. The oral mucosa is pink and healthy without any lesions or ulcers. The palate elevates in the midline. The nasal mucosa is pink and healthy. There is no epistaxis mucopus or nasal polyposis noted. The nasal septum is approximately in the midline. The skin is clear of any lesions, excoriations, or erythema. Skin testing in the office today performed under direct physician supervision is negative for a broad range of food allergens as well as carboxymethylcellulose in the setting of a positive histamine control. IMPRESSION: Anaphylaxis - We agreed that she would obtain hypromellose which is a known allergen and also present in the guaifenesin that she took. Anaphylaxis to guaifenesin itself is rare however we will try and perform skin testing to this when we see her back if she is able to bring this into the office. I also asked her to bring and hypromellose containing eyedrops so we can perform skin testing with these as well. We agreed to perform a cautious graded oral challenge with hypromellose and guaifenesin if her skin testing is negative to these in large part because her reaction was not life-threatening and the pretest probability of IgE mediated reactions to these substances is very low.. Gas pain - I suggested to the patient that since food skin testing is negative that food allergy is unlikely to be causing these symptoms. I suggested that in order to rule out food intolerance that the patient try a diet diary where the write down their meals 3 times a day along with their symptoms 3 times a day and see if they can find a correlation between specific foods and specific symptoms. If this is not beneficial then I suggested they try the FODMAP diet and discussed this with the patient in detail and provided an online reference with instructions on how to perform this. Time of visit 65 minutes not including performing and reading her skin testing. documented in this encounter [facility] 05-29-2024 History of Presen t illness Narrative Referral to Hvac Operations Technician placed. documented in this encounter [facility] 05-04-2024 History of Presen t illness Narrative Images from the original note were not included. Subjective Patient ID: Esha Shannon is a 23 y.o. female who presents for Depression, Polycystic Ovary Syndrome, and Back Pain. Esha is present today for follow up depression. She is currently on Abilify - Taking daily and higher dose is working well. Pt states she was previously started on spironolactone for PCOS but caused frequent urination so she had to stop it wanted to know what further treatment was available Pt has had ongoing low back pain - She was wondering if she could get anti-inflammatory to help with low back pain. Has seen Dr. Cristhian Laguerre, Neurosugery at [facility] twice so far for her back. He ordered an MRI of the thoracic spine which ruled out stenosis. He also ordered x-rays of her hips. Seeing Ortho for both hips on 05/10/2024, [facility], not sure of doctor's name. Pain does radiate to her hips, had x-rays of her hips at [facility], she states Dr. Laguerre told her the x-rays were abnormal. Dr. Laguerre also referred patient to Pain Management for possible NEYMAR's. Sees them for an evaluation on 05/24/2024 to see if she can proceed with injections. Did do Physical Therapy, but it made her symptoms significantly worse. DepressionPatient is not experiencing: palpitations and shortness of breath. Back Pain Associated symptoms include weakness. Pertinent negatives include no abdominal pain, chest pain or fever. Current Outpatient Medications on File Prior to Visit Medication Sig Dispense Refill ARIPiprazole (Abilify) 5 MG tablet Take 1 tablet (5 mg) by mouth Daily 100 tablet 3 Levonorgestrel (Mirena, 52 MG,) 20 MCG/DAY intrauterine device 1 each by Intrauterine route See administration instructions Will remain in place for 7 years, to be removed by PATIENT SERVICES TECHNICIAN No current facility-administered medications on file prior to visit. I have reviewed and reconciled the history and medication list with the patient today. Allergies Allergen Reactions Ibuprofen Anaphylaxis Nsaids Anaphylaxis Metformin GI intolerance Social History Tobacco Use Smoking status: Every Day Current packs/day: 0.25 Average packs/day: 0.3 packs/day for 1.5 years (0.4 ttl pk-yrs) Types: Cigarettes Start date: 10/17/2022 Passive exposure: Never Smokeless tobacco: Never Tobacco comments: Vape Vaping Use Vaping status: Never Used Substance Use Topics Alcohol use: Yes Alcohol/week: 2.0 standard drinks of alcohol Types: 2 Standard drinks or equivalent per week Comment: Caffeine intake: 2-3 cups per day Drug use: Never Family History Problem Relation Name Age of Onset Depression Mother Emilee Shannon Mental illness Mother Emilee Shannon Hearing loss Mother Emilee Shannon Heart disease Father Juan Shannon Heart failure Father Juan Shannon Diabetes Other Diabetes Maternal Grandmother Beni Hanna Past Medical History: Diagnosis Date A-fib ([facility]) Central perforation of tympanic membrane, right Cleft palate Ear infection GERD (gastroesophageal reflux disease) 2020 Headache 2013 Jaw asymmetry abnormal jaw alignment at Mitral valve regurgitation [facility] Dr Tomi Rojas Mixed conductive and sensorineural hearing loss of right ear with restricted hearing of left ear Mixed hearing loss of right ear Obesity 2018 PCOS (polycystic ovarian syndrome) Personal history of medical treatment 05/05/2019 Normal Examination Personal history of medical treatment 12/04/2020 [place] No abnormal or suspicious finding to account for the patient's symptoms. 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 Past Surgical History: Procedure Laterality Date INTRAUTERINE DEVICE INSERTION 05/22/2022 Mirena MANDIBLE SURGERY MANDIBLE SURGERY surgical repair;Disease:abnormal jaw alignment at MYRINGOTOMY W/ TUBES Bilateral 02/10/2024 Timmis OTHER SURGICAL HISTORY 02/09/2019 r/o RT aural polyp, RT TM repair, Timmis PALATE SURGERY cleft palate SINUS SURGERY SLEEP STUDY 2010 TYMPANOSTOMY TUBE PLACEMENT multiple in childhood WISDOM TOOTH EXTRACTION Visit Vitals BP 124/78 Pulse 86 Ht 5' 2 Wt 207 lb SpO2 99% BMI 37.86 kg/m Smoking Status Every Day BSA 2.03 m Review of Systems Constitutional: Positive for unexpected weight change (Weight gain). Negative for chills, fatigue and fever. Respiratory: Negative for cough, shortness of breath and wheezing. Cardiovascular: Negative for chest pain, palpitations and leg swelling. Gastrointestinal: Negative for abdominal pain, constipation, diarrhea, nausea and vomiting. Musculoskeletal: Positive for arthralgias and back pain. Skin: Negative for rash. Neurological: Positive for weakness. Psychiatric/Behavioral: Positive for depression. Endocrine: Hair growth on chin and stomach Objective Physical Exam Constitutional: General: She is not in acute distress. Appearance: She is well-developed. She is obese. HENT: Head: Normocephalic and atraumatic. Eyes: General: No scleral icterus. Conjunctiva/sclera: Conjunctivae normal. Cardiovascular: Rate and Rhythm: Normal rate and regular rhythm. Heart sounds: Normal heart sounds. No murmur heard. Pulmonary: Effort: Pulmonary effort is normal. No respiratory distress. Breath sounds: Normal breath sounds. No wheezing, rhonchi or rales. Skin: General: Skin is warm and dry. Neurological: General: No focal deficit present. Mental Status: She is alert and oriented to person, place, and time. Gait: Gait abnormal. Psychiatric: Mood and Affect: Mood normal. Behavior: Behavior normal. Assessment/Plan Diagnoses and all orders for this visit: PCOS (polycystic ovarian syndrome) Patient is unable to tolerate Metformin or Spironolactone. She has Mirena in place. The Mirena has helped with the menstrual symptoms she was having. However, she continues to gain weight and have issues with abnormal hair growth. Advised pt she will need to seek further treatment from PATIENT SERVICES TECHNICIAN. She does have an appointment scheduled with them in July. Advised her that she could try and reach out to them to see if she could be seen for a problem visit sooner that that if she would like to do so. Spinal stenosis of lumbar region with neurogenic claudication - traMADol (Ultram) 50 MG tablet; Take 1 tablet (50 mg) by mouth every 6 (six) hours if needed for severe pain for up to 5 days Discussed potential s/e and risks of this class of medication including the potential for abuse, reliance. Discussed importance of properly storing and disposing of the medication. Reviewed the goals of treatment, including improving pain control and improving functional status. Medication choice and dosage is appropriate for patient's current medical conditions. Reviewed the rules and regulations surrounding prescription of opioids and compliance at length with the patient. Patient will be required to be seen in our office at least every three months for monitoring. At each follow up visit I will reassess the patient's need for the medication. Patient is to have this medication prescribed only through this office. Failure to follow the rules and regulations will result in tapering and discontinuation of medications if applicable. Patient verbalized understanding. OARRS Report was reviewed for this patient. If medication is helpful, she can contact office for a refill. Degeneration of intervertebral disc of lumbar region with discogenic back pain and lower extremity pain Pt has h/o anaphylaxis to NSAIDs. States has been taking Aleve every morning, was previously tested years ago for possible reaction and was able to take it. Encouraged pt to make sure she takes it with food. Encouraged her to follow up with Ortho and Pain Management as scheduled. Major depressive disorder, recurrent, moderate (CMS/HCC) Mood well controlled on Abilify at the 5 mg dosage. She can call when she needs her next refill. Will obtain copies of her Thoracic MRI and bilateral hip x-rays. Follow up in about 3 months (around 08/02/2024) for Medication Follow Up. documented in this encounter [facility] 04-23-2024 History of Presen t illness Narrative Subjective Patient ID: Esha Shannon is a 23 y.o. female who presents for Ear Problem (Follow up audio) Audio shows unchanged hearing on the left and a small ABG above 2000Hx on the RT. Hearing on the left unchanged Family History Problem Relation Name Age of Onset Depression Mother Emilee Shannon Mental illness Mother Emilee Shannon Hearing loss Mother Emilee Shannon Heart disease Father Juan Shannon Heart failure Father Juan Shannon Diabetes Other Diabetes Maternal Grandmother Beni Hanna Active Ambulatory Problems Diagnosis Date Noted Mixed conductive and sensorineural hearing loss of right ear 10/24/2022 Mixed conductive and sensorineural hearing loss, unilateral, right ear with restricted hearing on the contralateral side 10/24/2022 Dysmenorrhea in adolescent 10/24/2022 Excessive and frequent menstruation 10/24/2022 Generalized anxiety disorder (CMS/HCC) 10/24/2022 Gastrocnemius equinus of left lower extremity 10/31/2022 Sleep apnea 03/25/2023 Postcalcaneal bursitis of left foot 03/25/2023 PCOS (polycystic ovarian syndrome) 03/25/2023 Paroxysmal atrial fibrillation (CMS/HCC) 03/25/2023 Obesity (BMI 30-39.9) 03/25/2023 Muscle pain 03/02/2023 Major depressive disorder, recurrent, moderate (CMS/HCC) 03/25/2023 Food allergy 03/25/2023 Irregular periods/menstrual cycles 03/25/2023 Tinnitus 06/26/2017 ETD (Eustachian tube dysfunction), bilateral 12/01/2023 Degeneration of intervertebral disc of lumbar region with discogenic back pain and lower extremity pain 03/22/2024 Spinal stenosis of lumbar region 03/22/2024 Resolved Ambulatory Problems Diagnosis Date Noted Asymmetrical sensorineural hearing loss 10/24/2022 Mixed hearing loss, bilateral 10/24/2022 Past Medical History: Diagnosis Date A-fib (CMS/HCC) Central perforation of tympanic membrane, right Cleft palate Ear infection GERD (gastroesophageal reflux disease) 2020 Headache 2013 Jaw asymmetry Mitral valve regurgitation Mixed conductive and sensorineural hearing loss of right ear with restricted hearing of left ear Mixed hearing loss of right ear Obesity 2019 Personal history of medical treatment 05/05/2019 Personal history of medical treatment 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 Sensorineural hearing loss Speech impairment 2005 Stickler's syndrome Past Surgical History: Procedure Laterality Date INTRAUTERINE DEVICE INSERTION 05/22/2022 Mirena MANDIBLE SURGERY MANDIBLE SURGERY surgical repair;Disease:abnormal jaw alignment at MYRINGOTOMY W/ TUBES Bilateral 02/10/2024 Timmis OTHER SURGICAL HISTORY 02/09/2019 r/o RT aural polyp, RT TM repair, Timmis PALATE SURGERY cleft palate SINUS SURGERY SLEEP STUDY 2010 TYMPANOSTOMY TUBE PLACEMENT multiple in childhood WISDOM TOOTH EXTRACTION Allergies Allergen Reactions Ibuprofen Anaphylaxis Nsaids Anaphylaxis Metformin GI intolerance Current Outpatient Medications on File Prior to Visit Medication Sig Dispense Refill ARIPiprazole (Abilify) 5 MG tablet Take 1 tablet (5 mg) by mouth Daily 100 tablet 3 Levonorgestrel (Mirena, 52 MG,) 20 MCG/DAY intrauterine device 1 each by Intrauterine route See administration instructions Will remain in place for 7 years, to be removed by PATIENT SERVICES TECHNICIAN No current facility-administered medications on file prior to visit. Objective Last Recorded Vitals Vitals: 04/23/24 1519 BP: 127/80 ENT Physical Exam Constitutional Appearance: patient appears well-developed, well-nourished and well-groomed, Communication/Voice: communication appropriate for developmental age; vocal quality normal; Ear Ear comments: RT - TIP&P, dry. No TM retraction. LT - TIP&P with post stapediopexy Assessment/Plan Diagnoses and all orders for this visit: Sensorineural hearing loss (SNHL) of left ear with restricted hearing of right ear Mixed conductive and sensorineural hearing loss of right ear with restricted hearing of left ear ETD (Eustachian tube dysfunction), bilateral There is a slight decrease in hearing on the right that may be due to reduction of her TM retraction. Overall ears look good. Pt already has [facility], but only uses them occasionally documented in this encounter [facility] 04-21-2024 History of Presen t illness Narrative History: Pt is s/p BMT 02/10/24. Pre-op audio completed 02-02-24. Pt states hearing seems worse post-operatively, more so in the left ear. Otoscopic Exam: Ear canal clear and t-tube visible AU Pure Tone Audiometry Right Ear: Mild sensorineural hearing loss at 250 Hz and from 1K - 2K Hz. Mild to profound conductive hearing loss above 2K Hz. Left Ear: Mild sensorineural hearing loss at 250 Hz and from 1K - 2K Hz rising to normal thresholds from 3K Hz - 4K Hz. Mild to moderate hearing loss above 4K Hz Speech Audiometry Did not test Tympanometry No seal both ears (patent tubes) Impressions: No significant change in hearing post-operatively documented in this encounter [facility] 03-17-2024 History of Presen t illness Narrative Subjective Patient ID: Esha Shannon is a 23 y.o. female who presents for Ear Problem (S/p BMT 02/10/24) Dizziness and N/V resolved. Pt states hearing still decreased on the left. Family History Problem Relation Name Age of Onset Depression Mother Emilee Shannon Mental illness Mother Emilee Shannon Hearing loss Mother Emilee Shannon Heart disease Father Juan Shannon Heart failure Father Juan Shannon Diabetes Other Diabetes Maternal Grandmother Beni Hanna Active Ambulatory Problems Diagnosis Date Noted Mixed conductive and sensorineural hearing loss of right ear 10/24/2022 Mixed conductive and sensorineural hearing loss, unilateral, right ear with restricted hearing on the contralateral side 10/24/2022 Dysmenorrhea in adolescent 10/24/2022 Excessive and frequent menstruation 10/24/2022 Generalized anxiety disorder (CMS/HCC) 10/24/2022 Gastrocnemius equinus of left lower extremity 10/31/2022 Sleep apnea 03/25/2023 Postcalcaneal bursitis of left foot 03/25/2023 PCOS (polycystic ovarian syndrome) 03/25/2023 Paroxysmal atrial fibrillation (CMS/HCC) 03/25/2023 Obesity (BMI 30-39.9) 03/25/2023 Muscle pain 03/02/2023 Major depressive disorder, recurrent, moderate (CMS/HCC) 03/25/2023 Food allergy 03/25/2023 Irregular periods/menstrual cycles 03/25/2023 Tinnitus 06/26/2017 ETD (Eustachian tube dysfunction), bilateral 12/01/2023 Resolved Ambulatory Problems Diagnosis Date Noted Asymmetrical sensorineural hearing loss 10/24/2022 Mixed hearing loss, bilateral 10/24/2022 Past Medical History: Diagnosis Date A-fib (CMS/HCC) Central perforation of tympanic membrane, right Cleft palate Ear infection GERD (gastroesophageal reflux disease) 2020 Headache 2012 Jaw asymmetry Mitral valve regurgitation Mixed conductive and sensorineural hearing loss of right ear with restricted hearing of left ear Mixed hearing loss of right ear Obesity 2019 Personal history of medical treatment 05/05/2019 Personal history of medical treatment 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 Sensorineural hearing loss Speech impairment 2004 Stickler's syndrome Past Surgical History: Procedure Laterality Date INTRAUTERINE DEVICE INSERTION 05/22/2022 Mirena MANDIBLE SURGERY MANDIBLE SURGERY surgical repair;Disease:abnormal jaw alignment at MYRINGOTOMY W/ TUBES Bilateral 02/10/2024 Timmis OTHER SURGICAL HISTORY 02/09/2019 r/o RT aural polyp, RT TM repair, Timmis PALATE SURGERY cleft palate SINUS SURGERY SLEEP STUDY 2010 TYMPANOSTOMY TUBE PLACEMENT multiple in childhood WISDOM TOOTH EXTRACTION Allergies Allergen Reactions Ibuprofen Anaphylaxis Nsaids Anaphylaxis Metformin GI intolerance Current Outpatient Medications on File Prior to Visit Medication Sig Dispense Refill ARIPiprazole (Abilify) 5 MG tablet Take 1 tablet (5 mg) by mouth Daily 100 tablet 3 Levonorgestrel (Mirena, 52 MG,) 20 MCG/DAY intrauterine device 1 each by Intrauterine route See administration instructions Will remain in place for 7 years, to be removed by PATIENT SERVICES TECHNICIAN [DISCONTINUED] baclofen (Lioresal) 10 MG tablet Take 1 tablet (10 mg) by mouth at bedtime for 7 days 7 tablet 0 [DISCONTINUED] predniSONE (Deltasone) 10 MG tablet Take 1 tablet (10 mg) by mouth 3 (three) times a day for 3 days, THEN 1 tablet (10 mg) 2 (two) times a day for 3 days, THEN 1 tablet (10 mg) Daily for 3 days. 18 tablet 0 No current facility-administered medications on file prior to visit. Objective Last Recorded Vitals Vitals: 03/17/24 1521 BP: 121/72 ENT Physical Exam Constitutional Appearance: patient appears well-developed and well-nourished, patient is cooperative; Ear Ear comments: Conor TIP&P, dry. King ML. Conor [address] A>B Assessment/Plan Diagnoses and all orders for this visit: ETD (Eustachian tube dysfunction), bilateral Other specified hearing loss of left ear, unspecified hearing status on contralateral side Tubes look good. Pt noted to have a stapediopexy and return of TM to its more anatomic position may have exposed an ossicular discontinuity. F/U after audio. documented in this encounter [facility] 03-09-2024 Telephone encount er Note Sent to pt's my chart. [facility] 03-09-2024 Miscellaneous Notes Formattin g of this note might be different from the original. Sent to pt's my chart. I do not recommend the chiropractor or physical therapy until she gets the MRI completed. It looks like it was authorized yesterday. It looks like the order was authorized for [facility]. She can contact them to get scheduled. Pt called states she is still having pain wondering if she should continue with PT or chiropractor? States she has 2 days on her medication left and then will be out she has not heard from hospital yet about appt for mri ( they are prior authorizing ) documented in this encounter [facility] 03-09-2024 Telephone encount er Note I do not recommend the chiropractor or physical therapy until she gets the MRI completed. It looks like it was authorized yesterday. It looks like the order was authorized for [facility]. She can contact them to get scheduled. [facility] 03-09-2024 Telephone encount er Note Pt called states she is still having pain wondering if she should continue with PT or chiropractor? States she has 2 days on her medication left and then will be out she has not heard from hospital yet about appt for mri ( they are prior authorizing ) [facility] 03-03-2024 History of Presen t illness Narrative Images from the original note were not included. Subjective Patient ID: Esha Shannon is a 23 y.o. female who presents for back pain. Esha is present today for evaluation of back pain. Admits low back pain that started about 1 month ago. She was sitting down and sneezed and felt instant pain in her lower back. She has been seeing the chiropractor for 3 times a week for a month and it helps for about 6 hours, she can at least stand up straight after her session but then next morning pain is back and cannot stand up straight. She has been using Aleve, ice, and TENS, the TENS units does help some too. Chiropractor did not do any xrays. Pain radiates into her hips with occasional numbness. Sometimes radiates into legs, tingling. Current Outpatient Medications on File Prior to Visit Medication Sig Dispense Refill ARIPiprazole (Abilify) 5 MG tablet Take 1 tablet (5 mg) by mouth Daily 100 tablet 3 Levonorgestrel (Mirena, 52 MG,) 20 MCG/DAY intrauterine device 1 each by Intrauterine route See administration instructions Will remain in place for 7 years, to be removed by PATIENT SERVICES TECHNICIAN [DISCONTINUED] spironolactone (Aldactone) 25 MG tablet Take 1 tablet (25 mg) by mouth Daily 100 tablet 3 No current facility-administered medications on file prior to visit. I have reviewed and reconciled the history and medication list with the patient today. Allergies Allergen Reactions Ibuprofen Anaphylaxis Nsaids Anaphylaxis Metformin GI intolerance Social History Tobacco Use Smoking status: Never Passive exposure: Never Smokeless tobacco: Never Vaping Use Vaping status: Never Used Substance Use Topics Alcohol use: Yes Alcohol/week: 2.0 standard drinks of alcohol Types: 2 Standard drinks or equivalent per week Comment: Caffeine intake: 2-3 cups per day Drug use: Never Family History Problem Relation Name Age of Onset Depression Mother Mental illness Mother Heart disease Father Diabetes Other Past Medical History: Diagnosis Date A-fib (CMS/HCC) Central perforation of tympanic membrane, right Cleft palate Ear infection Jaw asymmetry abnormal jaw alignment at Mitral valve regurgitation [facility] Dr Tomi Rojas Mixed conductive and sensorineural hearing loss of right ear with restricted hearing of left ear Mixed hearing loss of right ear PCOS (polycystic ovarian syndrome) Personal history of medical treatment 05/05/2019 Normal Examination Personal history of medical treatment 12/04/2020 US No abnormal or suspicious finding to account for the patient's symptoms. Ever Darryl's syndrome Sensorineural hearing loss Asymmetrical right Sleep apnea Stickler's syndrome Past Surgical History: Procedure Laterality Date INTRAUTERINE DEVICE INSERTION 05/22/2022 Mirena MANDIBLE SURGERY MANDIBLE SURGERY surgical repair;Disease:abnormal jaw alignment at MYRINGOTOMY W/ TUBES Bilateral 02/10/2024 Timmis OTHER SURGICAL HISTORY 02/09/2019 r/o RT aural polyp, RT TM repair, Timmis PALATE SURGERY cleft palate SLEEP STUDY 2010 TYMPANOSTOMY TUBE PLACEMENT multiple in childhood WISDOM TOOTH EXTRACTION Visit Vitals BP 110/82 Pulse 81 Resp 16 Ht 5' 2 Wt 205 lb SpO2 98% BMI 37.49 kg/m Smoking Status Never BSA 2.02 m Review of Systems Constitutional: Negative for chills, fatigue and fever. Respiratory: Negative for cough, shortness of breath and wheezing. Cardiovascular: Negative for chest pain, palpitations and leg swelling. Gastrointestinal: Negative for abdominal pain, constipation, diarrhea, nausea and vomiting. Musculoskeletal: Positive for back pain. Skin: Negative for rash. Neurological: Positive for numbness (Tingling). Objective Physical Exam Constitutional: General: She is not in acute distress. Appearance: She is well-developed. She is obese. HENT: Head: Normocephalic and atraumatic. Eyes: General: No scleral icterus. Conjunctiva/sclera: Conjunctivae normal. Cardiovascular: Rate and Rhythm: Normal rate and regular rhythm. Heart sounds: Normal heart sounds. No murmur heard. Pulmonary: Effort: Pulmonary effort is normal. No respiratory distress. Breath sounds: Normal breath sounds. No wheezing, rhonchi or rales. Musculoskeletal: Lumbar back: Spasms and bony tenderness present. Decreased range of motion. Positive right straight leg raise test and positive left straight leg raise test. Comments: Forward flexion to 45 degrees, unable to extend back. Limited lateral bend. Pain with hip adduction and knee extension against resistance. Skin: General: Skin is warm and dry. Neurological: General: No focal deficit present. Mental Status: She is alert and oriented to person, place, and time. Sensory: No sensory deficit. Motor: Weakness present. Gait: Gait abnormal. Psychiatric: Mood and Affect: Mood normal. Behavior: Behavior normal. Assessment/Plan Diagnoses and all orders for this visit: Lumbar pain with radiation down both legs - XR LUMBAR SPINE AP/LAT/FLEX/EXT/OBLIQUES; Future - predniSONE (Deltasone) 10 MG tablet; Take 1 tablet (10 mg) by mouth 3 (three) times a day for 3 days, THEN 1 tablet (10 mg) 2 (two) times a day for 3 days, THEN 1 tablet (10 mg) Daily for 3 days. - baclofen (Lioresal) 10 MG tablet; Take 1 tablet (10 mg) by mouth at bedtime for 7 days - Ambulatory referral to Physical Therapy; Future Start the above medications as directed. Advised of potential side effects of the steroid. Patient is to take the steroid with food. Do not take any NSAIDs while on Prednisone, Tylenol ok prn. Can take the Baclofen prn before bed, cautioned it may cause drowsiness. Encouraged gentle heat to area. Given pt's exam findings and radiation of pain to legs with positive SLR, I did order x-rays and Physical Therapy for patient. May need MRI for further evaluation depending on results of x-rays and response to treatment. Follow up for Appointment As Scheduled. documented in this encounter [facility] 02-11-2024 History of Presen t illness Narrative Subjective Patient ID: Esha Shannon is a 23 y.o. female who presents for Post-op (S/p BMT 02/10/24) Pt states she has been dizzy with N/V since surgery yesterday and has decreased hearing on the left Family History Problem Relation Name Age of Onset Depression Mother Mental illness Mother Heart disease Father Diabetes Other Active Ambulatory Problems Diagnosis Date Noted Mixed conductive and sensorineural hearing loss of right ear 10/24/2022 Mixed conductive and sensorineural hearing loss, unilateral, right ear with restricted hearing on the contralateral side 10/24/2022 Dysmenorrhea in adolescent 10/24/2022 Excessive and frequent menstruation 10/24/2022 Generalized anxiety disorder (CMS/HCC) 10/24/2022 Gastrocnemius equinus of left lower extremity 10/31/2022 Sleep apnea 03/25/2023 Postcalcaneal bursitis of left foot 03/25/2023 PCOS (polycystic ovarian syndrome) 03/25/2023 Paroxysmal atrial fibrillation (CMS/HCC) 03/25/2023 Obesity (BMI 30-39.9) 03/25/2023 Muscle pain 03/02/2023 Major depressive disorder, recurrent, moderate (HCC) (CMS/HCC) 03/25/2023 Food allergy 03/25/2023 Irregular periods/menstrual cycles 03/25/2023 Tinnitus 06/26/2017 ETD (Eustachian tube dysfunction), bilateral 12/01/2023 Resolved Ambulatory Problems Diagnosis Date Noted Asymmetrical sensorineural hearing loss 10/24/2022 Mixed hearing loss, bilateral 10/24/2022 Past Medical History: Diagnosis Date A-fib (CMS/HCC) Central perforation of tympanic membrane, right Cleft palate Ear infection Jaw asymmetry Mitral valve regurgitation Mixed conductive and sensorineural hearing loss of right ear with restricted hearing of left ear Mixed hearing loss of right ear Personal history of medical treatment 05/05/2019 Personal history of medical treatment 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 Sensorineural hearing loss Stickler's syndrome Past Surgical History: Procedure Laterality Date INTRAUTERINE DEVICE INSERTION 05/22/2022 Mirena MANDIBLE SURGERY MANDIBLE SURGERY surgical repair;Disease:abnormal jaw alignment at MYRINGOTOMY W/ TUBES Bilateral 02/10/2024 Timmis OTHER SURGICAL HISTORY 02/09/2019 r/o RT aural polyp, RT TM repair, Timmis PALATE SURGERY cleft palate SLEEP STUDY 2010 TYMPANOSTOMY TUBE PLACEMENT multiple in childhood WISDOM TOOTH EXTRACTION Allergies Allergen Reactions Ibuprofen Anaphylaxis Nsaids Anaphylaxis Metformin GI intolerance Current Outpatient Medications on File Prior to Visit Medication Sig Dispense Refill ARIPiprazole (Abilify) 5 MG tablet Take 1 tablet (5 mg) by mouth Daily 100 tablet 3 Levonorgestrel (Mirena, 52 MG,) 20 MCG/DAY intrauterine device 1 each by Intrauterine route See administration instructions Will remain in place for 7 years, to be removed by PATIENT SERVICES TECHNICIAN spironolactone (Aldactone) 25 MG tablet Take 1 tablet (25 mg) by mouth Daily 100 tablet 3 No current facility-administered medications on file prior to visit. Objective Last Recorded Vitals Vitals: 02/11/24 1412 BP: 132/70 ENT Physical Exam Constitutional Appearance: patient appears well-developed, well-nourished and well-groomed, Communication/Voice: communication appropriate for developmental age; vocal quality normal; Constitutional comments: No nystagmus Ear Ear comments: Conor TIP&P. LT stapediopexy Assessment/Plan Diagnoses and all orders for this visit: Nausea and vomiting, unspecified vomiting type Eras look good. Tubes in good position. No nystagmus to suggest inner ear injury. I will send in an RX for zofran. If HL persists I will repeat audio. It is possible pt had an ossicular discontinuity revealed by return of her TM to a more `normal position. documented in this encounter [facility] 02-11-2024 Telephone encount er Note Pt is coming in today for appt 02/11/24. [facility] 02-11-2024 Miscellaneous Notes Formattin g of this note might be different from the original. Pt is coming in today for appt 02/11/24. F/U today Pt called in, she had surgery yesterday and has been throwing up, her hearing in her left side sounds very adnormal . documented in this encounter [facility] 02-11-2024 Telephone encount er Note F/U today [facility] 02-11-2024 Telephone encount er Note Pt called in, she had surgery yesterday and has been throwing up, her hearing in her left side sounds very adnormal . [facility] 02-02-2024 History of Presen t illness Narrative History: Pt is here for pre-op audio. She is getting tubes in both ears. Last audio was 12-18-20. Pt was fit in February 2021 with [employer] Pure C & G 3AX aids. Pure Tone Audiometry Right Ear: Mild hearing loss from 250 Hz - 4K Hz. Profound hearing loss above 4K Hz Left Ear: Mild hearing loss from 250 Hz - 3K Hz. Moderate hearing loss above 4K Hz Speech Audiometry Right SRT = 40 dB and word discrimination score at 70 dBHL (masked) = 96% Left SRT = 40 dB and word discrimination score at 65 dBHL = 96% Tympanometry Right Ear: Type Ad tympanogram Left Ear: Type Ad tympanogram Hearing Aids: Hearing aid warranty expires next month. Will send both aids in for EOW service. Pt also needs supplies. Will give her free supplies when she picks up her aids and explained there will be a charge for supplies in the future. documented in this encounter [facility] 01-01-2023 Evaluation note Encounter Date Diagnosis Assessment [...] Pt understood and agreed to tx plan. [facility] Other 06-15-2023 Evaluation note* Encounter Date Diagnosis [...] nose. Patient verbalized understanding of treatment plan. [facility] Other 01-04-2023 History of Present illness Narrative* Sidra Joseph PA-C - 05/22/2022 3:09 PM EST [facility] Back End Engineer Progress Note Last Encounter in Department: 05/01/2022 [...] Urine 04/03/2022 Cloudy (A) Clear Final Specific [place] 04/03/2022 1.021 1.005 - 1.025 Final pH, [...] Exam Procedures IUD Insertion Indication and Consent: Esha Shannon is a 21 y.o. who desires [...] Mirena IUD Condition: Stable Complications: None Assessment/Plan: Esha is a 21 y.o. . She presented for IUD insertion. No problems updated. Esha was seen today for procedure. Diagnoses and [...] pain. Sidra Joseph PA-C documented in this [id number] History of Present illness Narrative* Sidra Joseph PA-C - 05/01/2022 2:00 PM EST [facility] Back End Engineer Progress Note Last Encounter in Department: Visit date not found Next Encounter in Department: Visit date not found Subjective PATIENT HISTORY Esha Shannon is a 21 y.o. Chief Complaint Patient presents with Consult New Patient. 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 Symptoms got worse and went to ED then referred to us for care. At the time of ED visit had been on OCP for one month. Reports went to ED for heavy vaginal bleeding, one tampon and super pad in 30 minutes. Passed several clots. Stopped taking OCP and has stopped bleeding. -Jeffery, CODING COORDINATOR Data Unavailable Social History Substance and Sexual Activity Sexual Activity Not Currently Partners: Male control/protection: None Single Menstrual Status Period Pattern: (!) Irregular Pap History No results found for: INTERPGYN, OTHFINDGYN, HPVRESULTS, GENCAT HPI Esha presents to establish care, discuss BC, and [...] Urine 04/03/2022 Cloudy (A) Clear Final Specific [place] 04/03/2022 1.021 1.005 - 1.025 Final pH, [...] normal urogenital microbiota Final Procedures Assessment ASSESSMENT/PLAN: Esha Shannon is a 21 y.o. . She presents for a follow up visit. Assessment: No problems updated. Esha was seen today for consult. Diagnoses and all orders for this visit: Pelvic pain in female Abnormal uterine bleeding (AUB) PCOS (polycystic ovarian syndrome) Return in about 2 weeks (around 05/15/2022) for IUD insertion. 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 Some spots [...] Log into your personal health record on [email or web address] and enter K490 in the Education box to learn more about Tinea Versicolor: Care Instructions. Current as of: July 19, 2020 Content Version: 13.1 [employer]. Care instructions adapted under license by your healthcare professional. If you have questions about a medical condition or this instruction, always ask your healthcare professional. [employer] disclaims any warranty or liability for your use of this information. documented in this [id number] History of Present illness Narrative* Claudio Price PA-C - 07/05/2021 2:12 PM EST Images from the original note were not included. PATIENT NAME: Esha Shannon [facility] [address] [id number] : 2000 DATE OF VISIT: 07/05/2021 #: [...] medications for this visit. documented in this [id number] History of Present illness Narrative* Sara Marques PA-C - 06/26/2021 12:06 PM EST PATIENT NAME: Esha Shannon [facility] [address] [place] [id number] : 2000 DATE OF VISIT: 06/26/2021 #: [...] General: Skin is warm and dry. Comments: Beaver colored, slightly raised, scaling patches over anterior [...] medications for this visit. documented in this [id number] Instructions* Patient Instructions* Sara Marques PA-C - 06/26/2021 11:33 AM EST Images from the original note were not included. Pityriasis Rosea: Care Instructions Your Care Instructions Pityriasis rosea (say rry-ac-WN-uh-rosy ADELINE-zee-uh ) is a common skin rash. [...] rash more visible and itchy. Use an bxem-thx-msfuqkm 1% hydrocortisone cream for small itchy areas. [...] Log into your personal health record on [email or web address] and enter S327 in the Education box to learn more about Pityriasis Rosea: Care Instructions. Current as of: July 19, 2020 Content Version: 13.1 [employer]. Care instructions adapted under license by your healthcare professional. If you have questions about a medical condition or this instruction, always ask your healthcare professional. [employer] disclaims any warranty or liability for your [...] Log into your personal health record on [email or web address] and enter M689 in the Education box to learn more about Achilles Tendon: Exercises. Current as of: November 16, 2020 Content Version: 13. [employer]. Care instructions adapted under license by your healthcare professional. If you have questions about a medical condition or this instruction, always ask your healthcare professional. [employer] disclaims any warranty or liability for your use of this information. [facility] Diagnosis Need for vaccination- Primary Need for prophylactic vaccination and inoculation against unspecified single disease [facility] Diagnosis Pityriasis rosea- Primary Achilles tendinitis, unspecified laterality [facility] Diagnosis Rash- Primary Rash and other nonspecific skin eruption Fungal infection Other and unspecified mycoses [facility] Diagnosis Pelvic pain in female- Primary Unspecified symptom associated with female genital organs Abnormal uterine bleeding (AUB) PCOS (polycystic ovarian syndrome) Polycystic ovaries [facility] Diagnosis Encounter for IUD insertion- Primary Insertion of intrauterine contraceptive device Negative test examination or test, negative result Routine screening for STI (sexually transmitted infection) Screening examination for venereal disease [facility] Diagnosis Encounter for IUD insertion- Primary Insertion of intrauterine contraceptive device Negative test examination or test, negative result Routine screening for STI (sexually transmitted infection) Screening examination for venereal disease [facility] Diagnosis Lumbar pain with radiation down both legs- Primary Lumbago documented in [facility] encounter [facility]* Diagnosis Lumbar pain with radiation down both legs Lumbago Compression fracture of L1 lumbar vertebra, closed, initial encounter ([facility]) [facility] Diagnosis ETD (Eustachian tube dysfunction), bilateral- Primary Other specified hearing loss of left ear, unspecified hearing status on contralateral side documented in this encounter [facility]* Diagnosis Conductive hearing loss of right ear with restricted hearing of left ear- Primary ETD (Eustachian tube dysfunction), bilateral documented in this encounter [facility]* Diagnosis Sensorineural hearing loss (SNHL) of left ear with restricted hearing of right ear- Primary Mixed conductive and sensorineural hearing loss of right ear with restricted hearing of left ear ETD (Eustachian tube dysfunction), bilateral documented in this encounter [facility]* Diagnosis Conductive hearing loss, bilateral- Primary ETD (Eustachian tube dysfunction), bilateral [facility]* Diagnosis PCOS (polycystic ovarian syndrome)- Primary Polycystic ovaries Spinal stenosis of lumbar region with neurogenic claudication Degeneration of intervertebral disc of lumbar region with discogenic back pain and lower extremity pain Major depressive disorder, recurrent, moderate (CMS/HCC) Major depressive disorder, recurrent episode, moderate [facility]* Diagnosis Nausea and vomiting, unspecified vomiting type- Primary [facility]* Diagnosis Allergy to drug- Primary Other drug allergy [facility]* Diagnosis Anaphylaxis, initial encounter- Primary Allergy to drug Other drug allergy Gas pain Flatulence, eructation, and gas pain [facility] Narrative - Reported* Type Description Date Medical History PCOS Medical History anxiety Surgical History cleft palate Surgical History PE tubes Hospitalization History see surgical [facility] Other History general Narrative - Reported* Type Description Date Medical History PCOS Medical History anxiety Surgical History cleft palate Surgical History PE tubes Surgical History wisdom teeth Hospitalization History see surgical [facility] Other Summary Purpose Family History No Family History Records FoundNo Family History Records FoundNo Family History Records FoundNo Family History Records FoundNo Family History Records FoundNo Family History Records FoundNo Family History Records FoundNo Family History Records FoundNo Family History Records Found Advance Directives No Advanced Directives Records FoundDocuments on File Type Date Recorded 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 Advance Directives and Living Will Documents on File Type Date Recorded 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 Advance Directives and Living Will Reason for Referral Specialty Diagnoses / Procedures Referred By Cindy henderson Referred To Contact Dermatology Diagnoses Claudio Neves PA-C [address] [place] [address] [place] [phone] Kayleigh Pickard DO [address] [phone] Referral ID Status Reason Start Date Expiration Date Visits Requested Visits Authorized [id number] Authorized Specialty Services Required/Pat ient's Best Interest 08/02/2021 08/02/2022 1 1 Specialty Diagnoses / Procedures Referred By Cindy henderson Referred To Contact Radiology Diagnoses Lumbar pain with radiation down both legs Compression fracture of L1 lumbar vertebra, closed, initial encounter (HCC) Procedures MRI LUMBAR SPINE WO CONTRAST Gwendolyn Lu, CYN [address] [facility] [address] [place] [address] Referral ID Status Reason Start Date Expiration Date Visits Re quested Visits Authorized [id number] Closed 03/11/2024 04/25/2024 1 1 Additional Source Comments INFORMATION SOURCE (unrecogn ized section and content) DATE CREATED AUTHOR 08/27/2020 [facility] DATE CREATED AUTHOR AUTHOR'S ORGANIZ ATION 11/23/2020 [facility] DATE CREATED AUTHOR AUTHOR'S ORGANIZ ATION 12/23/2020 [facility] DATE CREATED AUTHOR AUTHOR'S ORGANIZ ATION 11/12/2021 [facility] DATE CREATED AUTHOR AUTHOR'S ORGANIZ ATION [facility]/20[facility] DATE CREATED AUTHOR AUTHOR'S ORGANIZ ATION 06/20/2022 [facility] Ambu l[facility] DATE CREATED AUTHOR AUTHOR'S ORGANIZ ATION 03/21/2024 [facility] DATE CREATED AUTHOR AUTHOR'S ORGANIZ ATION 04/30/2024 [facility] ysician Group DATE CREATED AUTHOR AUTHOR'S ORGANIZ ATION 06/25/2024 [facility] Specialists EPIC Reason for Visit [...] Patient. 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 Symptoms got worse and went to ED then referred to us for care. At the time of ED visit had been on OCP for one month. Reports went to ED for heavy vaginal bleeding, one tampon and super pad in 30 minutes. Passed several clots. Stopped taking OCP and has stopped bleeding. -S.Kathryn, CODING COORDINATOR Reason Comments Procedure Pt here for ryan hernadezrtalma. -Cyrus CODING COORDINATOR Reason Onset Date Comments recommendations 03/09/2024 Specialty Diagnoses / Procedures Referred By Contac t Referred To Contact Radiology Diagnoses Lumbar pain with radiation down both legs Compression fracture of L1 lumbar vertebra, closed, initial encounter (HCC) Procedures MRI LUMBAR SPINE WO CONTRAST Gwendolyn Lu PA-C [address] [facility] [address] [place] [address] Referral ID Status Reason Start Date Expiration Date Visits Re quested Visits Authorized [id number] Closed 03/11/2024 04/25/2024 1 1 Reason Comments Ear Problem S/p BMT 02/10/24 Reason Comments Ear Problem Follow up audio Reason Comments Depression Polycystic Ovary Syndrome Back Pain Reason Comments Post-op S/p BMT 02/10/24 Reason Comments new patient Pt states she had an anaphylactic episode after tasking NSAIDS in 2018 and again with taking Musinex in 2024. Specialty Diagnoses / Procedures Referred By Contac t Referred To Contact Allergy Diagnoses Allergy to drug Procedures MT OFFICE/OUTPATIENT NEW HIGH MDM 60 MINUTES Gwendolyn Lu PA [address] [facility] [address] [place] [address] Phone: tel: fax: Soraida Owens MD [address] [address] Phone: tel: fax: Referral ID Status Reason Start Date Expiration Date Visits Requested Visits Authorized [id number] Pending Review Specialty Services Required 05/29/2024 11/25/2024 1 1 Care Teams (unrecognized sec tion and content) Survey Technologist Relationship Specialty Start Date End Date No, Physician [facility] PCP - General 03/28/20 Survey Technologist Relationship Specialty Start Date End Date No, Physician [facility] PCP - General 03/28/20 Survey Technologist Relationship Specialty Start Date End Date No, Physician [facility] PCP - General 03/28/20 Survey Technologist Relationship Specialty Start Date End Date No, Physician [facility] PCP - General 03/28/20 Claudio Price PA-C [address] [place] [address] [place] [id number] PCP - ALEX Attributed Provider - MMO Commercial 01/18/16 05/18/50 Survey Technologist Relationship Specialty Start Date End Date No, Physician [facility] PCP - General 03/28/20 Claudio Price PA-C [address] [place] [address] [place] [id number] PCP - ALEX Attributed Provider - MMO Commercial 01/18/16 05/18/50 Survey Technologist Relationship Specialty Start Date End Date No, Physician [facility] PCP - General 03/28/20 Claudio Price PA-C [address] [place] [address] [place] [address] PCP - ALEX Attributed Provider - [employer] 01/18/16 05/18/50 Survey Technologist Relationship Specialty Start Date End Date Gwendolyn Lu PA [address] [facility] [address] [place] [address] PCP - General Family Medicine 10/30/22 Zan Mcclendon MD [address] [facility] [address] [place] [address] PCP - Medical [place] [employer] 01/18/16 99 Survey Technologist Relationship Specialty Start Date End Date Gwendolyn Lu PA [address] [facility] [address] [place] [address] PCP - General Family Medicine 10/30/22 Zan Mcclendon MD [address] [facility] [address] [place] [address] PCP - Medical [place] [employer] 01/18/16 99 Survey Technologist Relationship Specialty Start Date End Date Zan Mcclendon MD [address] [facility] [address] [place] [address] PCP - General Family Medicine 03/15/24 Survey Technologist Relationship Specialty Start Date End Date Gwendolyn Lu PA [address] [facility] [address] [place] [address] PCP - General Family Medicine 10/30/22 Zan Mcclendon MD [address] [facility] [address] [place] [address] PCP - Medical [place] 01/18/16 99 Survey Technologist Relationship Specialty Start Date End Date Gwendolyn Lu PA [address] [facility] [address] [place] [address] PCP - General [facility] Medicine 10/30/22 Zan Mcclendon MD [address] [facility] [address] [place] [address] PCP - Medical [place] 01/18/16 99 Survey Technologist Relationship Specialty Start Date End Date Gwendolyn Lu PA [address] [facility] [address] [place] [address] PCP - General Family Medicine 10/30/22 Zan Mcclendon MD [address] [facility] [address] [place] [address] PCP - Medical [place] 01/18/16 99 Survey Technologist Relationship Specialty Start Date End Date Gwendolyn Lu PA [address] [facility] [address] [place] [address] PCP - General Family Medicine 10/30/22 Zan Mcclendon MD [address] [facility] [address] [place] [address] PCP - Medical [place] [employer] 01/18/16 99 Survey Technologist Relationship Specialty Start Date End Date Gwendolyn Lu PA [address] [facility] [address] [place] [address] PCP - General Family Medicine 10/30/22 Zan Mcclendon MD [address] [facility] [address] [place] [address] PCP - Medical [place] 01/18/16 99 Survey Technologist Relationship Specialty Start Date End Date Gwendolyn Lu PA [address] [facility] [address] [place] [address] PCP - General Family Medicine 10/30/22 Zan Mcclendon MD [address] [facility] [address] [place] [address] PCP - Medical [place] 01/18/16 99 Survey Technologist Relationship Specialty Start Date End Date Gwendolyn Lu PA [address] [facility] [address] [place] [address] PCP - General Family Medicine 10/30/22 Zan Mcclendon MD [address] [facility] [address] [place] [address] PCP - Medical [place] 01/18/16 99 Survey Technologist Relationship Specialty Start Date End Date Gwendolyn Lu PA [address] [facility] [address] [place] [address] PCP - General Family Medicine 10/30/22 Zan Mcclendon MD [address] [facility] [address] [place] [address] PCP - Medical [place] 01/18/16 99 FOR RECORDS PERTAINING TO PATIENTS WHO ARE [...] BE BASED ON THE PRIMARY CLINICAL RECORDS. [employer] [facility]. provides no warranty or guarantee of the accuracy or completeness of information in this document.
== END 2024-08-04 17:11 | disposition home or self-care (01) ==
LOC: LAB 17:10
PROVIDERS: PCP Family Medicine; Visit Provider Physician Assistant
DX: Z01.419 Encounter for gynecological examination (general) (routine) without abnormal findings (principal)
CPT/HCPCS: 88175

== ENCOUNTER 2024-08-24 08:44 | Outpatient (OUT) | payer OTHER, SELFPAY ==
[2024-08-24 09:28] LABS: Basophils Absolute Auto 0.1 10^3/uL (0.0-0.1); Basophils Percent Auto 0.7 % (0.2-2.0); Eosinophils Absolute Auto 0.2 10^3/uL (0.0-0.7); Hematocrit 41.8 % (36.0-48.0); Hemoglobin 14.4 g/dL (12.0-16.0); Immature Granulocytes Abs Auto 0.02 10^3/uL (0.00-0.03); Immature Granulocytes Pct Auto 0.2 % (0.0-0.5); Lymphocytes Absolute Auto 2.3 10^3/uL (1.2-3.8); Lymphocytes Percent Auto 25.2 % (20.5-60.0); Mean Corpuscular HGB Conc 34.4 g/dL (29.9-35.2); Mean Corpuscular Hemoglobin 30.9 pg (26.7-34.0); Mean Corpuscular Volume 89.7 fL (81.0-99.0); Mean Platelet Volume 9.8 fL (9.5-13.5); Monocytes Absolute Auto 0.6 10^3/uL (0.3-0.8); Neutrophils Absolute Auto 6.1 10^3/uL (1.4-6.5); Neutrophils Percent Auto 65.9 % (43.0-75.0); Platelet Count 370 10^3/uL (150-450); Red Blood Count 4.66 10^6/uL (4.20-5.40); Red Cell Distribution Width 11.8 % (11.0-15.0); White Blood Count 9.2 10^3/uL (4.0-11.0)
[2024-08-24 10:32] LABS: Free T4 0.98 ng/dL (0.76-1.46)
[2024-08-24 10:36] LABS: Thyroid Stimulating Hormone 1.425 uIU/mL (0.358-3.740)
[2024-08-24 10:47] LABS: HCG Quantitative <1 mIU/mL
[2024-08-24 11:02] LABS: Estimated Average Glucose 103 mg/dL; Glycohemoglobin A1C 5.2 % (4.5-6.2)
[2024-08-25 04:06] LABS: FSH 5.7 mIU/mL (.)
== END 2024-08-24 08:45 | disposition home or self-care (01) ==
PROVIDERS: PCP Family Medicine; Visit Provider Physician Assistant
DX: E28.2 Polycystic ovarian syndrome (principal)
CPT/HCPCS: 36415; 82626; 82627; 83001; 83002; 83036; 84439; 84443; 84702; 85025